=== PATIENT | male | born 1940 | race Caucasian/White ===

== ENCOUNTER 2017-04-10 21:21 | Emergency (ER) | payer MEDICARE ==
[~2017-04-10] VITALS: Ht 182.9 cm; Wt 112.5 kg
[~2017-04-10 21:21] MED LIST: ASPI81TA82 PO; COUM5TAB PO; COUM7.5T PO; EZET10 PO; FURO1TAB93 PO; HYDR-2768 PO; POTA-267 PO; PRIL40CA PO; ROSU10 PO; TOPR50TA PO
[2017-04-10 21:28] VITALS: BP 150/85; PULSE 100; RESP 16; TEMP 97.9; O2SAT 96
[2017-04-10] MEDS ORDERED: COUM7.5T PO (21:59)
[2017-04-10] MEDS ORDERED: FURO1TAB60 PO (21:59)
[2017-04-10] MEDS ORDERED: HYDR50TA3 PO (21:59)
[2017-04-10] MEDS ORDERED: PRIL20TA2 (21:59)
[2017-04-10] MEDS ORDERED: ASPI81CH CHEW (21:59)
[2017-04-10] MEDS ORDERED: COUM5TAB PO (21:59)
[2017-04-10] MEDS ORDERED: ZETI10TA5 PO (21:59)
[2017-04-10] MEDS ORDERED: POTA-243 PO (21:59)
[2017-04-10] MEDS ORDERED: TOPR25TA PO (21:59)
[2017-04-10] MEDS ORDERED: BACT800T5 PO (22:13)
[2017-04-10] MEDS ORDERED: CEPH-460 PO (22:13)
[2017-04-10] MEDS ORDERED: PRED50 PO (22:13)
--- NOTE | 2017-04-10 22:13 | PD ---
HPI Chief Complaint: Skin Problem Time Seen by Provider: 21:47 Travel History International Travel<30 days: No Contact w/Intl Traveler<30days: No Traveled to known affect area: No History of Present Illness HPI The patient is a 76-year-old male that noticed left elbow swelling 2 days ago. His left elbow is slightly painful. Today he noticed some redness on the medial aspect of his arm. He denies any fever. The patient is on Coumadin because of a mechanical heart valve. PFSH Past Medical History Hx Anticoagulant Therapy: Yes Arthritis: Yes (BACK) Asthma: No Blood Disorders: No Anxiety: No Depression: No Heart Rhythm Problems: Yes (2/ MURMUR ) Cancer: No Cardiac Catheterization: No Cardiovascular Problems: Yes (VALVE) High Cholesterol: Yes Chemotherapy: No Chest Pain: Yes Congestive Heart Failure: No COPD: No Coronary Artery Disease: Yes Diabetes: No Diminished Hearing: No Endocrine: No Gastrointestinal Disorders: Yes GERD: Yes Genitourinary: Yes (FREQ URINATION) Hypertension: Yes Immune Disorder: No Implanted Vascular Access Dvce: Yes Kidney Stones: Yes (YEARS AGO, STENT PLACED, "BLASTED STONE") Musculoskeletal: Yes (STEEL BETTE RIGHT LEG,) Neurologic: No Psychiatric: No Reproductive: No Respiratory: No Immunizations Current: Yes Myocardial Infarction: No Radiation Therapy: No Sleep Apnea: Yes Thyroid Disease: No Ulcer: Yes (ON "ACID REFLUX" PILL) ?: Not Past Surgical History Body Medical Devices: VALVE MECHANICAL HEART AORTIC VALVE. STEEL BETTE RIGHT LEG Cardiac Surgery: Yes Coronary Artery Bypass Graft: No Valve Replacement: Yes (AORTA 2001) Other Surgery: Yes (AORTIC VALVE 2001, RIGHT LEG STEEL BETTE) Family History Family Myocardial Infarction: No Social History Alcohol Use: No Tobacco Use: No Substance Use: No Allergies-Medications (Allergen,Severity, Reaction): Coded Allergies: No Known Allergies (Verified , MRI CONVERSION, 04/10/17) Reported Meds & Prescriptions Reported Meds & Active Scripts Active Reported Klor-Con 10 (Potassium Chloride) 10 Meq Tab 20 Meq PO BID Aspir-81 (Aspirin) 81 Mg Tab 81 Mg PO DAILY Lasix (Furosemide) 40 Mg Tab 40 Mg PO DAILY Coumadin 5 mg (Warfarin Sodium) Warfarin Sodium 5 mg Tab 5 Mg PO DIRECTED THURSDAY, THU, , SAT, SUN Coumadin 7.5 mg (Warfarin Sodium) Warfarin Sodium 7.5 mg Tab 7.5 Mg PO DIRECTED THURSDAY AND THURSDAY Zetia (Ezetimibe) 10 Mg Tab 10 Mg PO DAILY Hctz (Hydrochlorothiazide) 25 Mg Tab 50 Mg PO DAILY Prilosec 40 mg cap (Omeprazole) 40 Mg Cap 40 Mg PO BID NEB Toprol Xl (Metoprolol Succinate) 50 Mg Tabcr 25 Mg PO BID Crestor (Rosuvastatin Calcium) 10 Mg Tab 40 Mg PO DAILY Review of Systems Except as stated in HPI: all other systems reviewed are Neg Physical Exam Narrative GENERAL: Well-nourished, well-developed patient in slight apparent distress with his left elbow discomfort. SKIN: Focused skin assessment warm/dry. On the medial aspect of the upper arm and forearm is a 20 x 6 cm erythematous area. It is not tender to the touch. It is minimally warm. HEAD: Normocephalic. EYES: No scleral icterus. No injection or drainage. NECK: Supple, trachea midline. No JVD or lymphadenopathy. CARDIOVASCULAR: Regular rate and rhythm without murmurs, gallops, or rubs. RESPIRATORY: Breath sounds equal bilaterally. No accessory muscle use. GASTROINTESTINAL: Abdomen soft, non-tender, nondistended. MUSCULOSKELETAL: No cyanosis, or edema. There is an olecranon bursitis which is only minimally tender to the touch and the patient can flex and extend the elbow without significant pain. BACK: Nontender without obvious deformity. No CVA tenderness. Data Data Last Documented VS Vital Signs Date Time Temp Pulse Resp B/P Pulse Ox O2 Delivery O2 Flow Rate FiO2 04/10/17 21:28 97.9 100 16 150/85 96 MDM Medical Decision Making Medical Screen Exam Complete: Yes Emergency Medical Condition: Yes Medical Record Reviewed: Yes Differential Diagnosis Olecranon bursitisinfected, olecranon bursitisnot infected, cellulitis left arm, contact dermatitis left arm, allergic reaction left arm Narrative Course The redness on the left arm on the skin may be a cellulitis. It is a very early cellulitis and is nontender. The patient does not have any evidence of this time that the olecranon bursitis is infected. He is told that if it gets infected able increase in swelling and pain. He is told to return to emergency department should this happen. Diagnosis Primary Impression: Olecranon bursitis of left elbow Additional Impression: Cellulitis of left arm Additional Instructions: As we discussed, the prednisone is one tablet once daily for 4 days followed by one tablet daily for 4 days. The antibiotic is one tablet twice daily for 10 days and the other antibiotic is one tablet 3 times daily for 10 days. Follow- up next week with your primary care physician. Med/Other Pt SpecificInfo: Prescription(s) given Scripts Prednisone 50 Mg Tab50 Mg PO BID PRN (X 4 days than daily X 4 days) #12 TAB Ref 0 Prov:Deniz Del Toro MD 04/10/17 Cephalexin (Keflex)500 Mg [id number] Mg PO TID 10 Days Ref 0 Prov:Deniz Del Toro MD 04/10/17 Sulfamethoxazole-Trimethoprim (Bactrim DS)800-160 Mg Tab1 Tab PO BID #20 TAB Ref 0 Prov:Deniz Del Toro MD 04/10/17 Disposition: 01 DISCHARGE HOME Condition: Stable Deniz Del Toro MD Apr 10, 2017 22:13
[2017-04-10] MEDS ORDERED: CEPHALEXIN MONOHYDRATE 500 MG CAP PO ONE (22:15)
[2017-04-10] MEDS ORDERED: predniSONE 20 MG TAB PO ONE (22:15)
[2017-04-10] MEDS ORDERED: SULFAMETHOXAZOLE-TRIMETHOPRIM DS 800-160 MG TAB PO ONE (22:15)
== END 2017-04-10 22:38 | disposition home or self-care (01) ==
LOC: PHED 21:21
DX: M70.22 Olecranon bursitis, left elbow (principal); L03.114 Cellulitis of left upper limb; I10 Essential (primary) hypertension; E78.00 Pure hypercholesterolemia, unspecified; G47.30 Sleep apnea, unspecified; Z95.2 Presence of prosthetic heart valve; Z79.01 Long term (current) use of anticoagulants; Z87.39 Personal history of other diseases of the musculoskeletal system and connective tissue; Z86.79 Personal history of other diseases of the circulatory system; Z87.19 Personal history of other diseases of the digestive system; Z87.448 Personal history of other diseases of urinary system
CPT/HCPCS: 99284; J7512

== ENCOUNTER 2017-04-18 03:03 | Emergency (ER) | payer MEDICARE ==
[~2017-04-18] VITALS: Ht 180.3 cm; Wt 114.0 kg
[~2017-04-18 03:03] MED LIST changes: +ASPI81CH CHEW; -ASPI81TA82 PO; +BACT800T5 PO; +CEPH-460 PO; -EZET10 PO; +FURO1TAB60 PO; -FURO1TAB93 PO; -HYDR-2768 PO; +HYDR50TA3 PO; +POTA-243 PO; -POTA-267 PO; +PRED50 PO; +PRIL20TA2; -PRIL40CA PO; -ROSU10 PO; +TOPR25TA PO; -TOPR50TA PO; +ZETI10TA5 PO
[2017-04-18 03:09] VITALS: BP 160/81; PULSE 64; RESP 16; TEMP 98.3; O2SAT 96
[2017-04-18] MEDS ORDERED: SODIUM CHLOR 0.9% 1000 ML INJ 1,000 ML IV SCH (03:21)
[2017-04-18 03:24] VITALS: BP 174/86; PULSE 68; RESP 18; TEMP 98.3; O2SAT 96
[2017-04-18 03:27] VITALS: RESP 18; O2SAT 96
[2017-04-18] MEDS ORDERED: SODIUM CHLORIDE 0.9% FLUSH 10 ML FLUSH IVF PRN (03:30)
[2017-04-18] MEDS ORDERED: PANTOPRAZOLE SODIUM 40 MG VIAL IVP ONE (03:30)
[2017-04-18] MEDS ORDERED: FAMOTIDINE 20 MG/2 ML VIAL IV PUSH ONE (03:30)
[2017-04-18 03:34] LABS: AUTOMATED NEUTROPHIL # 11.5 TH/MM3 (1.8-7.7); BASOPHIL # 0.3 TH/MM3 (0-0.2); BASOPHIL % 1.7 % (0.0-2.0); EOSINOPHIL # 0.2 TH/MM3 (0-0.4); EOSINOPHIL % 1.1 % (0.0-4.0); HEMATOCRIT 41.7 % (39.0-51.0); LYMPH % 25.2 % (9.0-44.0); LYMPHOCYTE # 4.7 TH/MM3 (1.0-4.8); MEAN CELL VOLUME 91.6 FL (80.0-100.0); MEAN CORPUSCULAR HEMOGLOBIN 30.7 PG (27.0-34.0); MEAN CORPUSCULAR HGB CONC 33.5 % (32.0-36.0); MONO % 10.9 % (0.0-8.0); NEUT % 61.1 % (16.0-70.0); PLATELET COUNT 400 TH/MM3 (150-450); RED BLOOD COUNT 4.56 MIL/MM3 (4.50-5.90); RED CELL DISTRIBUTION WIDTH 12.9 % (11.6-17.2); WHITE BLOOD COUNT 18.8 TH/MM3 (4.0-11.0)
[2017-04-18 03:35] LABS: HEMO FLAGS DIFF FINAL
[2017-04-18 03:41] LABS: CHLORIDE 105 MEQ/L (98-107); POTASSIUM 4.3 MEQ/L (3.5-5.1); SODIUM (NA) 141 MEQ/L (136-145)
--- NOTE | 2017-04-18 03:41 | PD ---
HPI Chief Complaint: GI Complaint Time Seen by Provider: 03:21 Travel History International Travel<30 days: No Contact w/Intl Traveler<30days: No Traveled to known affect area: No History of Present Illness HPI The patient is a 76-year-old male who complains of rectal bleeding intermittently for the last 2 days. The bleeding is bright red. He is on Coumadin because he has a mechanical valve. He came in for olecranon bursitis on the of last month and was treated with prednisone, Keflex and Bactrim. He also had a cellulitis of the left arm. Olecranon bursitis is no longer painful but he is [facility] last [facility]. Yesterday, his INR was 3. He was told to begin his Coumadin again today and he took his Coumadin today. He was off Coumadin for 4 days prior to that. PFSH Past Medical History Hx Anticoagulant Therapy: Yes Arthritis: Yes (BACK) Asthma: No Blood Disorders: No Anxiety: No Depression: No Heart Rhythm Problems: Yes (2/6 MURMUR ) Cancer: No Cardiac Catheterization: No Cardiovascular Problems: Yes (VALVE) High Cholesterol: Yes Chemotherapy: No Chest Pain: Yes Congestive Heart Failure: No COPD: No Coronary Artery Disease: Yes Diabetes: No Diminished Hearing: No Endocrine: No Gastrointestinal Disorders: Yes GERD: Yes Genitourinary: Yes (FREQ URINATION) Hypertension: Yes Immune Disorder: No Implanted Vascular Access Dvce: Yes Kidney Stones: Yes (YEARS AGO, STENT PLACED, "BLASTED STONE") Musculoskeletal: Yes (STEEL BETTE RIGHT LEG,) Neurologic: No Psychiatric: No Reproductive: No Respiratory: No Immunizations Current: Yes Myocardial Infarction: No Radiation Therapy: No Sleep Apnea: Yes Thyroid Disease: No Ulcer: Yes (ON "ACID REFLUX" PILL) Tetanus Vaccination: Unknown Influenza Vaccination: Yes Past Surgical History Body Medical Devices: VALVE MECHANICAL HEART AORTIC VALVE. STEEL BETTE RIGHT LEG Cardiac Surgery: Yes Coronary Artery Bypass Graft: No Valve Replacement: Yes (AORTA 2001) Other Surgery: Yes (AORTIC VALVE 2001, RIGHT LEG STEEL BETTE) Family History Family Myocardial Infarction: No Social History Alcohol Use: No Tobacco Use: No Substance Use: No Allergies-Medications (Allergen,Severity, Reaction): Coded Allergies: No Known Allergies (Verified , MRI CONVERSION, 04/18/17) Reported Meds & Prescriptions Reported Meds & Active Scripts Active Prednisone 50 Mg Tab 50 Mg PO BID PRN Keflex (Cephalexin) 500 Mg Capsule 500 Mg PO TID 10 Days Bactrim DS (Sulfamethoxazole-Trimethoprim) 800-160 Mg Tab 1 Tab PO BID Reported Klor-Con 10 (Potassium Chloride) 10 Meq Tab 10 Meq PO DAILY Prilosec (Omeprazole Magnesium) 20 Mg Tab Toprol XL (Metoprolol Succinate) 25 Mg Tab 25 Mg PO DAILY Hydrochlorothiazide 50 Mg Tab 50 Mg PO DAILY Lasix (Furosemide) 40 Mg Tab 40 Mg PO DAILY Zetia (Ezetimibe) 10 Mg Tab 10 Mg PO DAILY Aspirin 81 Mg Chew 81 Mg CHEW DAILY Review of Systems Except as stated in HPI: all other systems reviewed are Neg Physical Exam Narrative GENERAL: The patient is alert, oriented 3 in no apparent distress. His vital signs show blood pressure 160/81 and the rest the vital signs are normal. He does not appear anemic. SKIN: Focused skin assessment warm/dry. HEAD: Atraumatic. Normocephalic. EYES: Pupils equal and round. No scleral icterus. No injection or drainage. ENT: No nasal bleeding or discharge. Mucous membranes pink and moist. NECK: Trachea midline. No JVD. CARDIOVASCULAR: Regular rate and rhythm. No murmur appreciated. RESPIRATORY: No accessory muscle use. Clear to auscultation. Breath sounds equal bilaterally. GASTROINTESTINAL: Abdomen soft, non-tender, nondistended. Hepatic and splenic margins not palpable. MUSCULOSKELETAL: No obvious deformities. No clubbing. No cyanosis. No edema. NEUROLOGICAL: Awake and alert. No obvious cranial nerve deficits. Motor grossly within normal limits. Normal speech. PSYCHIATRIC: Appropriate mood and affect; insight and judgment normal. RECTAL EXAM: No masses or tenderness, stool is brown but guaiac positive. No external hemorrhoids are noted. Data Data Last Documented VS Vital Signs Date Time Temp Pulse Resp B/P Pulse Ox O2 Delivery O2 Flow Rate FiO2 04/18/17 03:27 18 96 Room Air 04/18/17 03:24 98.3 68 174/86 Orders Complete Blood Count With Diff (04/18/17 03:21) Comprehensive Metabolic Panel (04/18/17 03:21) Lipase (04/18/17 03:21) Prothrombin Time / Inr (Pt) (04/18/17 03:21) Urinalysis - C+S If Indicated (04/18/17 03:21) Ecg Monitoring (04/18/17 03:21) Iv Access Insert/Monitor (04/18/17 03:21) Oximetry (04/18/17 03:21) Pantoprazole Inj (Protonix Inj) (04/18/17 03:30) Sodium Chlor 0.9% 1000 Ml Inj (Ns 1000 M (04/18/17 03:21) Sodium Chloride 0.9% Flush (Ns Flush) (04/18/17 03:30) Famotidine Inj (Pepcid Inj) (04/18/17 03:30) Labs Laboratory Tests Test 04/18/17 03:25 White Blood Count 18.8 TH/MM3 Red Blood Count 4.56 MIL/MM3 Hemoglobin 14.0 GM/DL Hematocrit 41.7 % Mean Corpuscular Volume 91.6 FL Mean Corpuscular Hemoglobin 30.7 PG Mean Corpuscular Hemoglobin 33.5 % Concent Red Cell Distribution Width 12.9 % Platelet Count 400 TH/MM3 Mean Platelet Volume 7.8 FL Neutrophils (%) (Auto) 61.1 % Lymphocytes (%) (Auto) 25.2 % Monocytes (%) (Auto) 10.9 % Eosinophils (%) (Auto) 1.1 % Basophils (%) (Auto) 1.7 % Neutrophils # (Auto) 11.5 TH/MM3 Lymphocytes # (Auto) 4.7 TH/MM3 Monocytes # (Auto) 2.1 TH/MM3 Eosinophils # (Auto) 0.2 TH/MM3 Basophils # (Auto) 0.3 TH/MM3 CBC Comment DIFF FINAL Differential Comment Prothrombin Time 27.1 SEC Prothromb Time International 2.4 RATIO Ratio Sodium Level 141 MEQ/L Potassium Level 4.3 MEQ/L Chloride Level 105 MEQ/L Carbon Dioxide Level 27.5 MEQ/L Anion Gap 9 MEQ/L Blood Urea Nitrogen 26 MG/DL Creatinine 1.40 MG/DL Estimat Glomerular Filtration 50 ML/MIN Rate Random Glucose 89 MG/DL Calcium Level 8.8 MG/DL Total Bilirubin 0.3 MG/DL Aspartate Amino Transf 70 U/L (AST/SGOT) Alanine Aminotransferase 185 U/L (ALT/SGPT) Alkaline Phosphatase 87 U/L Total Protein 6.6 GM/DL Albumin 3.1 GM/DL Lipase 249 U/L [facility] Medical Decision Making Medical Screen Exam Complete: Yes Emergency Medical Condition: Yes Medical Record Reviewed: Yes Interpretation(s) The CBC shows a white count of 18,800 with a platelet count of 400,000 but is otherwise unremarkable. The hemoglobin is 14.0. The complete metabolic profile shows a BUN of 26, creatinine 1.4, GFR of 50, AST of 70 and ALT of 185 and albumin of 3.1 but is otherwise normal. The lipase is normal. The ProTime is 27.1 and the INR is 2.4. Differential Diagnosis Coumadin coagulopathy, lower GI bleed, anemia, thrombocytopenia, electrolyte disorder Narrative Course The patient is about at his desirable INR level at this time. Because he is still experiencing symptoms some minor rectal bleeding we will have him discontinue the Coumadin today and resume the Coumadin on Thursday. [facility] He feels fine and does not want to be admitted in the hospital and we can find no reason for him to be in the hospital at this time. His rectal bleeding appears to be minor. Diagnosis Primary Impression: Rectal bleeding Ruled Out: Anemia Additional Instructions: As we discussed, do not take the Coumadin on Thursday and [facility]. We are always happy to recheck you should you have an increase of rectal bleeding. At this time it appears you're rectal bleeding was minimal. The stool is already brown. Med/Other Pt SpecificInfo: Existing Med Changed Disposition: DISCHARGE HOME Condition: Stable Deniz Del Toro MD Apr 18, 2017 03:41
[2017-04-18 03:44] LABS: ANION GAP 9 MEQ/L (5-15); BICARBONATE 27.5 MEQ/L (21.0-32.0); INTERNATIONAL NORMALIZED RATIO 2.4 RATIO; PROTHROMBIN TIME - PATIENT 27.1 SEC (9.8-11.6)
[2017-04-18 03:45] LABS: BLOOD UREA NITROGEN 26 MG/DL (7-18)
[2017-04-18 03:47] LABS: ALT (GPT) 185 U/L (12-78); AST (GOT) 70 U/L (15-37)
[2017-04-18 03:48] LABS: GLOMERULAR FILTRATION RATE 50 ML/MIN (>89)
[2017-04-18 03:49] LABS: TOTAL BILIRUBIN ADULT 0.3 MG/DL (0.2-1.0)
[2017-04-18 03:50] LABS: ALKALINE PHOSPHATASE 87 U/L (45-117)
[2017-04-18 04:25] LABS: BLOOD, URINE NEG (NEG); GLUCOSE,URINE NEG (NEG); KETONE, URINE NEG (NEG); NITRITE,URINE NEG (NEG); PH, URINE 5.5 (5.0-8.5)
[2017-04-18 04:30] LABS: COMMENT (UR) CULT NOT INDICATED; CULTURE IF INDICATED CULT NOT INDICATED; RBC, URINE 0-2 /hpf (0-3); SQUAMOUS EPITHELIAL CELL URINE 0-5 /hpf (0-5); URINE COLOR STRAW (YELLW/STRAW); WBC, URINE 0-2 /hpf (0-5)
== END 2017-04-18 04:40 | disposition home or self-care (01) ==
LOC: PHED 03:03
DX: K62.5 Hemorrhage of anus and rectum (principal); Z95.2 Presence of prosthetic heart valve; Z79.01 Long term (current) use of anticoagulants; E78.00 Pure hypercholesterolemia, unspecified; I25.10 Atherosclerotic heart disease of native coronary artery without angina pectoris; I10 Essential (primary) hypertension; G47.30 Sleep apnea, unspecified; K21.9 Gastro-esophageal reflux disease without esophagitis
CPT/HCPCS: 80053; 81001; 83690; 85025; 85610; 96361; 96374; 96375; 99284; C9113; J7030

== ENCOUNTER 2017-04-19 16:34 | Emergency (ER) | payer MEDICARE ==
[~2017-04-19] VITALS: Ht 182.9 cm; Wt 113.0 kg
[~2017-04-19 16:34] MED LIST changes: -COUM5TAB PO; -COUM7.5T PO
[2017-04-19 16:36] VITALS: BP 194/87; PULSE 92; RESP 24; TEMP 98.8; O2SAT 93
--- NOTE | 2017-04-19 17:23 | PD ---
HPI Chief Complaint: Pain: Acute or Chronic Time Seen by Provider: 17:22 Travel History International Travel<30 days: No Contact w/Intl Traveler<30days: No Traveled to known affect area: No History of Present Illness HPI 76-year-old male came to the emergency room with history of left elbow olecranon bursitis. Patient has had this since April 10. In fact patient had got to [facility] emergency room where he was diagnosed with it and started on Bactrim. He did not have a needle aspiration done probably because he is on Coumadin. Patient says that due to the Bactrim his INR went up almost to 6. His primary care made some Coumadin dose adjustment and his last INR as of yesterday was 3. However he still has the swelling on the elbow and the redness and hence is back here again. He says he's been taking the Bactrim like is supposed and still has a few days left finish the course. Denies any fever or chills. Vital signs in triage showed slight hypoxia and hypertension. Patient does not appear to be in any significant distress. Looking back at his medical record patient had elevated white blood cell count on the . [facility] Past Medical History Narrative Medical List of his past medical, surgical, social and family history is reviewed from the nursing note. Hx Anticoagulant Therapy: Yes (COUMADIN) Arthritis: Yes (BACK) Asthma: No Blood Disorders: No Anxiety: No Depression: No Heart Rhythm Problems: Yes (2/6 MURMUR ) Cancer: No Cardiac Catheterization: No Cardiovascular Problems: Yes (NM 1994, ARTIFICAL VALVE) High Cholesterol: Yes Chemotherapy: No Chest Pain: Yes Congestive Heart Failure: No COPD: No Coronary Artery Disease: Yes Diabetes: No Diminished Hearing: No Endocrine: No Gastrointestinal Disorders: Yes GERD: Yes Genitourinary: Yes (FREQ URINATION) Hypertension: Yes Immune Disorder: No Implanted Vascular Access Dvce: Yes Kidney Stones: Yes (YEARS AGO, STENT PLACED, "BLASTED STONE") Musculoskeletal: Yes (STEEL BETTE RIGHT LEG,) Neurologic: No Psychiatric: No Reproductive: No Respiratory: No Immunizations Current: Yes Myocardial Infarction: No Radiation Therapy: No Sleep Apnea: Yes Thyroid Disease: No Ulcer: Yes (ON "ACID REFLUX" PILL) Past Surgical History Body Medical Devices: VALVE MECHANICAL HEART AORTIC VALVE. STEEL BETTE RIGHT LEG Cardiac Surgery: Yes Coronary Artery Bypass Graft: No Valve Replacement: Yes (AORTA 2001) Other Surgery: Yes (AORTIC VALVE 2001, RIGHT LEG STEEL BETTE) Social History Alcohol Use: No Tobacco Use: No Substance Use: No Allergies-Medications (Allergen,Severity, Reaction): Coded Allergies: No Known Allergies (Verified , MRI CONVERSION, 04/19/17) Comments List of his allergies reviewed from the nursing note. Reported Meds & Prescriptions Reported Meds & Active Scripts Active Prednisone 50 Mg Tab 50 Mg PO BID PRN Keflex (Cephalexin) 500 Mg Capsule 500 Mg PO TID 10 Days Bactrim DS (Sulfamethoxazole-Trimethoprim) 800-160 Mg Tab 1 Tab PO BID Reported Klor-Con 10 (Potassium Chloride) 10 Meq Tab 10 Meq PO DAILY Prilosec (Omeprazole Magnesium) 20 Mg Tab Toprol XL (Metoprolol Succinate) 25 Mg Tab 25 Mg PO DAILY Hydrochlorothiazide 50 Mg Tab 50 Mg PO DAILY Lasix (Furosemide) 40 Mg Tab 40 Mg PO DAILY Zetia (Ezetimibe) 10 Mg Tab 10 Mg PO DAILY Aspirin 81 Mg Chew 81 Mg CHEW DAILY Narrative Medication List of his home medications reviewed from the nursing note. Review of Systems Except as stated in HPI: all other systems reviewed are Neg Physical Exam Narrative GENERAL: Awake, alert, elderly, no obvious distress SKIN: Focused skin assessment warm/dry. Left elbow over the olecranon process has swelling, erythema of the skin and fluctuance suggestive of olecranon bursitis. HEAD: Atraumatic. Normocephalic. EYES: Pupils equal and round. No scleral icterus. No injection or drainage. ENT: No nasal bleeding or discharge. Mucous membranes pink and moist. NECK: Trachea midline. No JVD. CARDIOVASCULAR: Regular rate and rhythm. No murmur appreciated. RESPIRATORY: No accessory muscle use. Clear to auscultation. Breath sounds equal bilaterally. GASTROINTESTINAL: Abdomen soft, non-tender, nondistended. Hepatic and splenic margins not palpable. MUSCULOSKELETAL: No obvious deformities. No clubbing. No cyanosis. No edema. NEUROLOGICAL: Awake and alert. No obvious cranial nerve deficits. Motor grossly within normal limits. Normal speech. PSYCHIATRIC: Appropriate mood and affect; insight and judgment normal. Data Data Last Documented VS Vital Signs Date Time Temp Pulse Resp B/P Pulse Ox O2 Delivery O2 Flow Rate FiO2 04/19/17 17:59 93 Nasal Cannula 2 04/19/17 17:58 85 18 140/69 04/19/17 16:36 98.8 Orders Complete Blood Count With Diff (04/19/17 17:32) Comprehensive Metabolic Panel (04/19/17 17:32) Prothrombin Time / Inr (Pt) (04/19/17 17:32) Lactic Acid Sepsis Protocol (04/19/17 17:32) Urinalysis - C+S If Indicated (04/19/17 17:32) Blood Culture (04/19/17 17:32) Blood Glucose (04/19/17 17:32) Ecg Monitoring (04/19/17 17:32) Iv Access Insert/Monitor (04/19/17 17:32) Oximetry (04/19/17 17:32) Oxygen Administration (04/19/17 17:32) Vancomycin Inj (Vancomycin Inj) (04/19/17 18:45) Piperacil-Tazo 4.5 Gm Premix (Zosyn 4.5 (04/19/17 18:45) Labs Laboratory Tests Test 04/19/17 04/19/17 04/19/17 17:40 17:50 17:51 Urine Color LIGHT-YELLOW Urine Turbidity CLEAR Urine pH 5.5 Urine Specific [place] 1.011 Urine Protein NEG mg/dL Urine Glucose (UA) NEG mg/dL Urine Ketones NEG mg/dL Urine Occult Blood NEG Urine Nitrite NEG Urine Bilirubin NEG Urine Urobilinogen LESS THAN 2.0 MG/DL Urine Leukocyte Esterase NEG Urine RBC LESS THAN 1 /hpf Urine WBC 1 /hpf Microscopic Urinalysis Comment CATH-CULT NOT IND White Blood Count 19.6 TH/MM3 Red Blood Count 4.61 MIL/MM3 Hemoglobin 13.8 GM/DL Hematocrit 42.5 % Mean Corpuscular Volume 92.3 FL Mean Corpuscular Hemoglobin 29.9 PG Mean Corpuscular Hemoglobin 32.4 % Concent Red Cell Distribution Width 13.7 % Platelet Count 332 TH/MM3 Mean Platelet Volume 7.9 FL Neutrophils (%) (Auto) 77.9 % Lymphocytes (%) (Auto) 11.4 % Monocytes (%) (Auto) 8.9 % Eosinophils (%) (Auto) 1.3 % Basophils (%) (Auto) 0.5 % Neutrophils # (Auto) 15.2 TH/MM3 Lymphocytes # (Auto) 2.2 TH/MM3 Monocytes # (Auto) 1.7 TH/MM3 Eosinophils # (Auto) 0.3 TH/MM3 Basophils # (Auto) 0.1 TH/MM3 CBC Comment AUTO DIFF Differential Total Cells Counted Differential Comment AUTO DIFF CONFIRMED Platelet Estimate NORMAL Platelet Morphology Comment NORMAL Prothrombin Time 33.0 SEC Prothromb Time International 2.9 RATIO Ratio Sodium Level 137 MEQ/L Potassium Level 4.7 MEQ/L Chloride Level 100 MEQ/L Carbon Dioxide Level 28.9 MEQ/L Anion Gap 8 MEQ/L Blood Urea Nitrogen 24 MG/DL Creatinine 1.06 MG/DL Estimat Glomerular Filtration 68 ML/MIN Rate Random Glucose 105 MG/DL Calcium Level 9.2 MG/DL Total Bilirubin 0.4 MG/DL Aspartate Amino Transf 31 U/L (AST/SGOT) Alanine Aminotransferase 121 U/L (ALT/SGPT) Alkaline Phosphatase 86 U/L Total Protein 6.8 GM/DL Albumin 3.2 GM/DL Lactic Acid Level 1.5 mmol/L [facility] Medical Decision Making Medical Screen Exam Complete: Yes Emergency Medical Condition: Yes Medical Record Reviewed: Yes Differential Diagnosis Olecranon bursitis, cellulitis Narrative Course 5:50 PM I've ordered blood test. If the white blood cell count is back to normal and would just let the patient finish the course of the Bactrim. He is on Coumadin and the INR is a concern as well. A needle aspiration would be done if the INR is within an acceptable range and white count is still elevated. 6:45 PM his white count today is 20,000 and the INR is 2.9. Given this patient obviously has failed outpatient treatment. [place] would be to aspirate the bursa and send the fluid for culture. However he would require admission because there is a very high likelihood of hemorrhage and bleeding once I have aspirated given his high INR. Also because of his failure of outpatient treatment he should be admitted for IV antibiotic. I ordered IV vancomycin and IV Zosyn for broad-spectrum coverage and went to talk to the patient to let him know about all this as well as admission. However patient vehemently refused admission because he has a sick at home whom he needs to take care of. He understood the risks of leaving. Patient was in full capacity to make decisions for himself. He will sign AMA. Procedures EKG Prior to Arrival: No Diagnosis Primary Impression: infected olecranon bursitis Additional Impressions: Failure of outpatient treatment Olecranon bursitis of left elbow Disposition: 07 AGAINST MEDICAL ADVICE Condition: Serious Sharon Rogers MD Apr 19, 2017 17:23
[2017-04-19 17:58] VITALS: BP 140/69; PULSE 85; RESP 18; O2SAT 93
[2017-04-19 18:13] LABS: AUTOMATED NEUTROPHIL # 15.2 TH/MM3 (1.8-7.7); BASOPHIL # 0.1 TH/MM3 (0-0.2); BASOPHIL % 0.5 % (0.0-2.0); EOSINOPHIL # 0.3 TH/MM3 (0-0.4); EOSINOPHIL % 1.3 % (0.0-4.0); HEMATOCRIT 42.5 % (39.0-51.0); LYMPH % 11.4 % (9.0-44.0); LYMPHOCYTE # 2.2 TH/MM3 (1.0-4.8); MEAN CELL VOLUME 92.3 FL (80.0-100.0); MEAN CORPUSCULAR HEMOGLOBIN 29.9 PG (27.0-34.0); MEAN CORPUSCULAR HGB CONC 32.4 % (32.0-36.0); MONO % 8.9 % (0.0-8.0); NEUT % 77.9 % (16.0-70.0); PLATELET COUNT 332 TH/MM3 (150-450); RED BLOOD COUNT 4.61 MIL/MM3 (4.50-5.90); RED CELL DISTRIBUTION WIDTH 13.7 % (11.6-17.2); WHITE BLOOD COUNT 19.6 TH/MM3 (4.0-11.0)
[2017-04-19 18:18] LABS: HEMO FLAGS AUTO DIFF
[2017-04-19 18:20] LABS: INTERNATIONAL NORMALIZED RATIO 2.9 RATIO
[2017-04-19 18:33] LABS: ALKALINE PHOSPHATASE 86 U/L (45-117); TOTAL BILIRUBIN ADULT 0.4 MG/DL (0.2-1.0)
[2017-04-19 18:42] LABS: ALT (GPT) 121 U/L (12-78); ANION GAP 8 MEQ/L (5-15); AST (GOT) 31 U/L (15-37); BICARBONATE 28.9 MEQ/L (21.0-32.0); BLOOD UREA NITROGEN 24 MG/DL (7-18); CHLORIDE 100 MEQ/L (98-107); GLOMERULAR FILTRATION RATE 68 ML/MIN (>89); POTASSIUM 4.7 MEQ/L (3.5-5.1); SODIUM (NA) 137 MEQ/L (136-145)
[2017-04-19] MEDS ORDERED: PIPERACIL-TAZO 4.5 GM PREMIX 100 ML IV ONE (18:45)
[2017-04-19] MEDS ORDERED: VANCOMYCIN INJ 1,000 MG in SODIUM CHLOR 0.9% 250 ML INJ 250 ML IV ONE (18:45)
[2017-04-19 18:46] LABS: BLOOD, URINE NEG (NEG); GLUCOSE,URINE NEG (NEG); KETONE, URINE NEG (NEG); NITRITE,URINE NEG (NEG); PH, URINE 5.5 (5.0-8.5); URINE COLOR LIGHT-YELLOW (YELLW/STRAW)
[2017-04-19 18:47] LABS: COMMENT (UR) CATH-CULT NOT IND; CULTURE IF INDICATED CATH CULTURE NOT IND
[2017-04-19 19:14] LABS: PLATELET ESTIMATE SMEAR NORMAL (NORMAL); PLATELET MORPHOLOGY NORMAL (NORMAL); SCAN/DIFF AUTO DIFF CONFIRMED
== END 2017-04-19 21:42 | disposition left against medical advice (07) ==
LOC: NEPD 16:34
DX: M71.122 Other infective bursitis, left elbow (principal); I10 Essential (primary) hypertension; I25.10 Atherosclerotic heart disease of native coronary artery without angina pectoris; Z79.01 Long term (current) use of anticoagulants
CPT/HCPCS: 80053; 81001; 83605; 85025; 85610; 87040; 99283

== ENCOUNTER 2017-04-19 20:17 | Inpatient (IN) | payer MEDICARE ==
[~2017-04-19] VITALS: Ht 182.9 cm; Wt 107.1 kg
[~2017-04-19 20:17] MED LIST changes: +COUM5TAB PO; +COUM7.5T PO
[2017-04-19 20:20] VITALS: BP 159/70; PULSE 86; RESP 16; TEMP 99.3; O2SAT 93
--- NOTE | 2017-04-19 20:58 | PD ---
Physical Exam Date Seen by Provider: Apr 19, 2017 Time Seen by Provider: 20:57 Data Data Last Documented VS Vital Signs Date Time Temp Pulse Resp B/P Pulse Ox O2 Delivery O2 Flow Rate FiO2 04/19/17 20:20 99.3 86 16 159/70 93 Room Air [facility] Supervised Visit with MONA: No Narrative Course 76 YO M with complaint of left elbow pain x 1 week. Patient was seen earlier then left AMA. On Coumadin. Vitals reviewed. Patient seen in triage, awaiting bed placement. Adela Bernstein Apr 19, 2017 20:58
--- NOTE | 2017-04-19 21:40 | PD ---
HPI Chief Complaint: Edema Time Seen by Provider: 21:40 Travel History International Travel<30 days: No Contact w/Intl Traveler<30days: No Traveled to known affect area: No History of Present Illness HPI 76-year-old male with history of CAD, hypertension, aVR in 2001, on Coumadin, presents to emergency department for the second time today. Earlier today the patient was seen and evaluated for an olecranon bursitis on the left that has been worsening since April 10 when he was initially seen and evaluated in [place] emergency department and started on Bactrim. Patient has been taking the Bactrim but redness has increased as well as pain. Patient denies any fever or chills. States that he is taking the Bactrim as directed. Today his white count was 19.6 with a neutrophilia of 15.2. CMP was without acute concern. Lactic acid was 1.5. Patient was advised to be admitted for failure of outpatient treatment, however the patient had to check himself out AGAINST MEDICAL ADVICE to go For his sick . He returns to continue with the initial treatment plan. There have been no changes since his leaving earlier today. PFSH Past Medical History Hx Anticoagulant Therapy: Yes Arthritis: Yes (BACK) Asthma: No Blood Disorders: No Anxiety: No Depression: No Heart Rhythm Problems: Yes (2/6 MURMUR ) Cancer: No Cardiac Catheterization: No Cardiovascular Problems: Yes (HTN, MECHANICAL HEART VALVE, [place]) High Cholesterol: Yes Chemotherapy: No Chest Pain: Yes Congestive Heart Failure: No COPD: No Coronary Artery Disease: Yes Diabetes: No Diminished Hearing: No Endocrine: No Gastrointestinal Disorders: Yes GERD: Yes Genitourinary: Yes (FREQ URINATION) Hypertension: Yes Immune Disorder: No Implanted Vascular Access Dvce: Yes Kidney Stones: Yes (YEARS AGO, STENT PLACED, "BLASTED STONE") Musculoskeletal: Yes (STEEL BETTE RIGHT LEG,) Neurologic: No Psychiatric: No Reproductive: No Respiratory: No Immunizations Current: Yes Myocardial Infarction: No Radiation Therapy: No Sleep Apnea: Yes Thyroid Disease: No Ulcer: Yes (ON "ACID REFLUX" PILL) Past Surgical History Body Medical Devices: VALVE MECHANICAL HEART AORTIC VALVE. STEEL BETTE RIGHT LEG Cardiac Surgery: Yes Coronary Artery Bypass Graft: No Valve Replacement: Yes (AORTA 2001) Other Surgery: Yes (AORTIC VALVE 2001, RIGHT LEG STEEL BETTE) Social History Alcohol Use: No Tobacco Use: No Substance Use: No Allergies-Medications (Allergen,Severity, Reaction): Coded Allergies: No Known Allergies (Verified , MRI CONVERSION, 04/19/17) Reported Meds & Prescriptions Reported Meds & Active Scripts Active Prednisone 50 Mg Tab 50 Mg PO BID PRN Keflex (Cephalexin) 500 Mg Capsule 500 Mg PO TID 10 Days Bactrim DS (Sulfamethoxazole-Trimethoprim) 800-160 Mg Tab 1 Tab PO BID Reported Klor-Con 10 (Potassium Chloride) 10 Meq Tab 10 Meq PO DAILY Prilosec (Omeprazole Magnesium) 20 Mg Tab Toprol XL (Metoprolol Succinate) 25 Mg Tab 25 Mg PO DAILY Hydrochlorothiazide 50 Mg Tab 50 Mg PO DAILY Lasix (Furosemide) 40 Mg Tab 40 Mg PO DAILY Zetia (Ezetimibe) 10 Mg Tab 10 Mg PO DAILY Aspirin 81 Mg Chew 81 Mg CHEW DAILY Review of Systems Except as stated in HPI: all other systems reviewed are Neg Physical Exam Narrative GENERAL: Well-nourished elderly male patient, sitting up on the stretcher in no acute distress. SKIN: Focused skin assessment warm/dry. Left elbow over the olecranon process has swelling, erythema of the skin and fluctuance suggestive of olecranon bursitis. Erythema extends now approximately to the medial aspect of the mid bicep.. HEAD: Atraumatic. Normocephalic. EYES: No scleral icterus. No injection or drainage. ENT: No nasal bleeding or discharge. Mucous membranes pink and moist. NECK: Trachea midline. No JVD. CARDIOVASCULAR: Regular rate and rhythm. 2/6 murmur appreciated. RESPIRATORY: No accessory muscle use. Clear to auscultation. Breath sounds equal bilaterally. GASTROINTESTINAL: Abdomen soft, non-tender, nondistended. Hepatic and splenic margins not palpable. MUSCULOSKELETAL: No obvious deformities. No clubbing. No cyanosis. NEUROLOGICAL: Awake and alert. No obvious cranial nerve deficits. Motor grossly within normal limits. Normal speech. PSYCHIATRIC: Appropriate mood and affect; insight and judgment normal. Data Data Last Documented VS Vital Signs Date Time Temp Pulse Resp B/P Pulse Ox O2 Delivery O2 Flow Rate FiO2 04/19/17 21:53 66 18 120/59 93 Room Air 04/19/17 20:20 99.3 Orders Iv Access Insert/Monitor (04/19/17 22:07) Electrocardiogram (04/19/17 ) Elbow, Complete (4 Vws) (04/19/17 ) [facility] Medical Decision Making Medical Screen Exam Complete: Yes Emergency Medical Condition: Yes Medical Record Reviewed: Yes Differential Diagnosis Infected olecranon bursitis versus septic joint versus cellulitis Narrative Course 76-year-old male presents to emergency department for evaluation of a left olecranon bursitis that is worsening despite treatment of Bactrim. Patient was seen and evaluated today, checked himself out AGAINST MEDICAL ADVICE to go care for his . He returns for admission and IV antibiotics. Patient has remained afebrile. He recalls no new injury. X-ray imaging is ordered of the left elbow has not yet been completed. Colchicine placed [place] hospitalist for admission. Diagnosis Primary Impression: Cellulitis of left arm Additional Impressions: Olecranon bursitis of left elbow Failure of outpatient treatment Admitting Information Admitting Physician Requests: Admit Condition: Stable Ivette Soriano Apr 19, 2017 21:40
[2017-04-19 21:53] VITALS: BP 120/59; PULSE 66; RESP 18; O2SAT 93
--- NOTE | 2017-04-19 22:28 | RADRPT ---
EXAM DATE/TIME: 04/19/2017 22:16 [facility] COMPARISON: No previous studies available for comparison. INDICATIONS : Inflammation and pain on posterior surface. MEDICAL HISTORY : None. SURGICAL HISTORY : None. ENCOUNTER: Initial ACUITY: 1 week PAIN SCORE: 2/10 LOCATION: Left posterior elbow. FINDINGS: Multiple view examination of the left elbow demonstrates no soft tissue swelling, joint effusion, or fracture. The osseous structures are in normal alignment. Bony mineralization is normal. There is rounded soft tissue swelling at the posterior elbow adjacent to the olecranon. CONCLUSION: Olecranon bursitis. Diego Palacios MD on April 19, 2017 at 22:25 Board Certified Radiologist. This report was verified electronically.
[2017-04-19] MEDS ORDERED: BISACODYL 10 MG SUPP RECTAL PRN (22:30)
[2017-04-19] MEDS ORDERED: MAGNESIUM HYDROXIDE SUSP 30 ML CUP PO PRN (22:30)
[2017-04-19] MEDS ORDERED: SODIUM CHLORIDE 0.9% FLUSH 10 ML FLUSH IV FLUSH PRN (22:30)
[2017-04-19] MEDS ORDERED: ACETAMINOPHEN/HYDROcodone 325 MG/5 MG TAB PO PRN (22:30)
[2017-04-19] MEDS ORDERED: ACETAMINOPHEN 325 MG TAB PO PRN (22:30)
[2017-04-19] MEDS ORDERED: ONDANSETRON HCL 4 MG/2 ML VIAL IVP PRN (22:30)
[2017-04-19] MEDS ORDERED: SENNOSIDES 8.6 MG TAB PO PRN (22:30)
[2017-04-19] MEDS ORDERED: LACTULOSE SYRUP 20 GM/30 ML CUP PO PRN (22:30)
[2017-04-19] MEDS ORDERED: Vancomycin Consult Pharmacy 1 EA OTHER SCH (22:30)
[2017-04-19] MEDS ORDERED: MORPHINE SULFATE 4 MG/ML INJ IV PRN (22:30)
--- NOTE | 2017-04-19 22:36 | HHI.HP ---
HPI Service [facility] Hospitalists Primary Care Physician [facility] Admission Diagnosis Infected L olecranon bursitis; cellulitis; failed outpt tx Diagnoses: (1) Olecranon bursitis of left elbow Diagnosis: Principal (2) Failure of outpatient treatment Diagnosis: Principal (3) Chronic anticoagulation Diagnosis: Principal Travel History International Travel<30 Days: No Contact w/Intl Traveler <30 Da: No Traveled to Known Affected Are: No History of Present Illness This is a 76-year-old male with a PMH of HTN, CAD, Mechanical AVR on Coumadin and GERD who presented to the ER for 2nd visit today secondary to complaints of left elbow swelling/pain. Initially presented to [facility] 04/10/17 for similar complaints, noted to have Olecranon Bursitis w/ Cellulitis and d/c'd on Keflex/Bactrim/Prednisone, reports compliance w/ meds. Presented to [facility] earlier today for ongoing complaints, found to have left elbow cellulitis w/ WBC 19, s/p Vanc/Zosyn in ER at that time and was offered admission, however pt declined as he had to go home to take care of sick . Returns now for admission as he found someone to care for . On arrival, BP 159/70, HR 86, O2 sat 93% on RA, Temp 99.3. WBC 19.6, elevated neutrophil count. Chemistry unremarkable except for GFR 68. Lactic Acid normal. INR 2.9. UA negative. Elbow X-ray with olecranon bursitis. Review of Systems Except as stated in HPI: all other systems reviewed are Neg ROS: 14 point review of systems otherwise negative. Past Family Social History Past Medical History PMH: HTN, CAD, Mechanical AVR on Coumadin and GERD Past Surgical History PAST SURGICAL HISTORY: Mechanical Aortic Valve, RLE Brought Allergies: Coded Allergies: No Known Allergies (Verified , MRI CONVERSION, 04/19/17) Family History PAST FAMILY HISTORY: Reviewed. No h/o DM or CAD Social History PAST SOCIAL HISTORY: Negative for alcohol, tobacco or drugs. Physical Exam Vital Signs Vital Signs Date Time Temp Pulse Resp B/P Pulse Ox O2 Delivery O2 Flow Rate FiO2 04/19/17 21:53 66 18 120/59 93 Room Air 04/19/17 20:20 99.3 86 16 159/70 93 Room Air Physical Exam PE: GENERAL: Very pleasant elderly white male in no acute distress. HEENT: PERRLA, EOMI. No scleral icterus or conjunctival pallor. No lid lag or facial droop. CARDIOVASCULAR: Regular rate and rhythm. No obvious murmurs to auscultation. No chest tenderness to palpation. RESPIRATORY: No obvious rhonchi or wheezing. Clear to auscultation. Breath sounds equal bilaterally. GASTROINTESTINAL: Abdomen soft, non-tender, nondistended. BS normal. MUSCULOSKELETAL: Extremities without clubbing, cyanosis, or edema. No obvious deformities. Left elbow w/ erythema/edema. Pulses intact. NEUROLOGICAL: Awake, alert and oriented x4. No focal neurologic deficits. Moving both upper and lower extremities spontaneously. Assessment and Plan Problem List: (1) Olecranon bursitis of left elbow ICD Code: M70.22 Status: Acute (2) Failure of outpatient treatment ICD Code: Z78.9 Status: Acute (3) Chronic anticoagulation ICD Code: Z79.01 Status: Acute Assessment and Plan A/P: 1. Olecranon Bursitis: Left Elbow, w/ associated cellulitis, persistent erythema/edema despite antibiotics. Elbow X-ray w/ olecranon bursitis, images reviewed by me. Continue w/ IV Abx, hold Coumadin for possible joint aspiration. Consult Ortho as needed for further evaluation. 2. Failure of Outpt Tx: s/p eval [facility] 04/10/17, started on Keflex/ Bactrim, compliant w/ medications however progressive symptoms. S/p Vanc/Zosyn on earlier presentation to ER, will continue w/ IV Abx. 3. Chronic Anticoagulation: secondary to Mechanical Aortic Valve, on Coumadin , INR 2.9. Will hold for now for possible need for joint aspiration, caution w / prolonged discontinuation of anticoagulation as high risk for embolic event w / mechanical valve. 4. DVT Prophylaxis: On Coumadin. 5. Social work for d/c planning as needed. 6. Case discussed w/ ER physician at length. Physician Certification 2 Midnight Certification Type: Admission for Inpatient Services Order for Inpatient Services The services are ordered in accordance with Medicare regulations or non- Medicare payer requirements, as applicable. In the case of services not specified as inpatient-only, they are appropriately provided as inpatient services in accordance with the 2-midnight benchmark. Estimated LOS (days): 2 days is the estimated time the patient will need to remain in the hospital, assuming treatment plan goals are met and no additional complications. Post-Hospital Plan: Not yet determined Nicci Slaughter MD Apr 19, 2017 22:36
[2017-04-19] MEDS: SODIUM CHLOR 0.9% 1000 ML INJ 1,000 ML IV SCH (23:00)
[2017-04-19] MEDS ORDERED: VANCOMYCIN INJ 2,500 MG in SODIUM CHLORID 0.9% 500 ML INJ 500 ML IV ONE (23:00)
[2017-04-20] VITALS (7 sets, daily range): BP systolic 100–157; BP diastolic 55–76; PULSE 68–94; RESP 16–20; TEMP 97.7–98.7; O2SAT 90–98
[2017-04-20 06:53] LABS: AUTOMATED NEUTROPHIL # 12.5 TH/MM3 (1.8-7.7); BASOPHIL # 0.1 TH/MM3 (0-0.2); BASOPHIL % 0.3 % (0.0-2.0); EOSINOPHIL # 0.2 TH/MM3 (0-0.4); EOSINOPHIL % 1.5 % (0.0-4.0); HEMATOCRIT 39.4 % (39.0-51.0); LYMPH % 11.1 % (9.0-44.0); LYMPHOCYTE # 1.8 TH/MM3 (1.0-4.8); MEAN CELL VOLUME 91.8 FL (80.0-100.0); MEAN CORPUSCULAR HEMOGLOBIN 30.5 PG (27.0-34.0); MEAN CORPUSCULAR HGB CONC 33.3 % (32.0-36.0); MONO % 8.4 % (0.0-8.0); NEUT % 78.7 % (16.0-70.0); PLATELET COUNT 301 TH/MM3 (150-450); RED CELL DISTRIBUTION WIDTH 13.5 % (11.6-17.2); WHITE BLOOD COUNT 15.9 TH/MM3 (4.0-11.0)
[2017-04-20 06:58] LABS: INTERNATIONAL NORMALIZED RATIO 2.1 RATIO; PROTHROMBIN TIME - PATIENT 24.1 SEC (9.8-11.6)
[2017-04-20 07:05] LABS: HEMO FLAGS AUTO DIFF
[2017-04-20 07:48] LABS: ANION GAP 7 MEQ/L (5-15); AST (GOT) 22 U/L (15-37); BLOOD UREA NITROGEN 18 MG/DL (7-18); CHLORIDE 99 MEQ/L (98-107); GLOMERULAR FILTRATION RATE 71 ML/MIN (>89); SODIUM (NA) 135 MEQ/L (136-145)
[2017-04-20 07:49] LABS: ALT (GPT) 92 U/L (12-78)
[2017-04-20 07:51] LABS: ALKALINE PHOSPHATASE 75 U/L (45-117); TOTAL BILIRUBIN ADULT 0.6 MG/DL (0.2-1.0)
[2017-04-20 08:24] LABS: BANDS 4 % (0-6); MYELOCYTES 1 % (0-0); NEUTROPHIL # MANUAL DIFF 13.4 TH/MM3 (1.8-7.7); POLYS (SEG NEUTROPHILS) 79 % (16-70); WBC DIFF SAMPLE 100
[2017-04-20 08:25] LABS: SCAN/DIFF FINAL DIFF MANUAL
[2017-04-20] MEDS: EZETIMIBE 10 MG TAB PO SCH (08:34)
[2017-04-20] MEDS: FUROSEMIDE 40 MG TAB PO SCH (08:34)
[2017-04-20] MEDS: HYDROCHLOROTHIAZIDE 50 MG TAB PO SCH (08:34)
[2017-04-20] MEDS: METOPROLOL SUCCINATE 25 MG EXTENDED RELEASE TAB PO SCH (08:34)
[2017-04-20] MEDS: SODIUM CHLORIDE 0.9% FLUSH 10 ML FLUSH IV FLUSH SCH ×2 (08:35→21:00)
[2017-04-20] MEDS: CEFEPIME INJ 2,000 MG in SODIUM CHLORIDE 0.9% INJ 100 ML IV SCH ×2 (08:35→21:01)
[2017-04-20] MEDS: DOCUSATE SODIUM 50 MG/SENNA 8.6 MG TAB PO SCH ×2 (08:42→21:00)
[2017-04-20] MEDS: SODIUM CHLOR 0.9% 1000 ML INJ 1,000 ML IV SCH ×2 (08:44→21:10)
[2017-04-20] MEDS: VANCOMYCIN 1,500 MG/NS 500 ML IV SCH ×2 (12:29)
--- NOTE | 2017-04-20 13:32 | HHI.PR ---
Subjective Remarks Patient reports is feeling okay. He has not noticed any change in the swelling or erythema. He denies fevers or chills. Objective Vitals Vital Signs Date Time Temp Pulse Resp B/P Pulse Ox O2 Delivery O2 Flow Rate FiO2 04/20/17 12:00 97.7 93 20 157/71 92 04/20/17 08:00 Room Air 04/20/17 08:00 98.3 85 20 132/65 93 04/20/17 04:00 97.9 73 16 149/69 92 04/20/17 04:00 Room Air 04/20/17 00:58 Room Air 04/20/17 00:05 97.7 68 16 139/76 95 04/19/17 21:53 66 18 120/59 93 Room Air 04/19/17 20:20 99.3 86 16 159/70 93 Room Air I/O 04/19/17 04/19/17 04/19/17 04/20/17 04/20/17 04/20/17 07:00 15:00 23:00 07:00 15:00 23:00 Intake Total 933 ml Output Total 900 ml Balance 33 ml Intake Oral 180 ml IV Total 753 ml Output Urine Total 900 ml # Bowel Movements 0 Result Diagram: 04/20/17 0611 04/20/17 0611 Imaging Last Impressions Elbow X-Ray 04/19/17 0000 Signed Impressions: Service Date/Time: Wednesday, April 19, 2017 22:16 - CONCLUSION: Olecranon bursitis. Diego Palacios MD Objective Remarks GENERAL: This is a well-nourished, well-developed patient, in no apparent distress. CARDIOVASCULAR: Normal rate and regular rhythm without murmurs, gallops, or rubs. RESPIRATORY: Good respiratory efforts. Breath sounds equal and clear to auscultation bilaterally. GASTROINTESTINAL: Abdomen soft, non-tender, non-distended. Normal active bowel sounds MUSCULOSKELETAL: Left elbow has extensive swelling about the olecranon. There is extending erythema above and below the elbow joint. NEURO: Alert & Oriented x4 to person, place, time, situation. Moves all ext x4 PSYCH: Appropriate mood and affect. A/P Problem List: (1) Olecranon bursitis of left elbow ICD Code: M70.22 Status: Acute (2) Failure of outpatient treatment ICD Code: Z78.9 Status: Acute (3) Chronic anticoagulation ICD Code: Z79.01 Status: Acute Assessment and Plan 76-year-old male with Olecranon Bursitis: Left Elbow, w/ associated cellulitis, persistent erythema/ edema despite outpatient antibiotics. Elbow X-ray did not reveal any trauma. Continue vancomycin and cefepime. Consult orthopedics for possible aspiration. Pain control Chronic Anticoagulation: secondary to Mechanical Aortic Valve, on Coumadin, INR 2.1. Will hold for now for possible need for joint aspiration, caution w/ prolonged discontinuation of anticoagulation as high risk for embolic event w/ mechanical valve. Hypertension: Continue home medications DVT Prophylaxis: On Coumadin. Aung Harmon MD Apr 20, 2017 13:32
[2017-04-21] MEDS: VANCOMYCIN 1,500 MG/NS 500 ML IV SCH ×2 (00:37)
[2017-04-21] MEDS: SODIUM CHLOR 0.9% 1000 ML INJ 1,000 ML IV SCH (04:33)
[2017-04-21 05:07] VITALS: BP 140/76; PULSE 92; RESP 18; TEMP 98.3; O2SAT 91
[2017-04-21 06:14] LABS: HEMATOCRIT 42.1 % (39.0-51.0); MEAN CELL VOLUME 92.9 FL (80.0-100.0); MEAN CORPUSCULAR HEMOGLOBIN 29.9 PG (27.0-34.0); MEAN CORPUSCULAR HGB CONC 32.2 % (32.0-36.0); PLATELET COUNT 258 TH/MM3 (150-450); RED BLOOD COUNT 4.54 MIL/MM3 (4.50-5.90); RED CELL DISTRIBUTION WIDTH 13.7 % (11.6-17.2); REVIEW FLAG FINAL; WHITE BLOOD COUNT 16.4 TH/MM3 (4.0-11.0)
[2017-04-21 06:27] LABS: BICARBONATE 26.3 MEQ/L (21.0-32.0); POTASSIUM 3.9 MEQ/L (3.5-5.1)
[2017-04-21 08:02] VITALS: BP 133/72; PULSE 102; RESP 20; TEMP 98.9; O2SAT 93
[2017-04-21] MEDS: DOCUSATE SODIUM 50 MG/SENNA 8.6 MG TAB PO SCH (09:00)
[2017-04-21] MEDS: SODIUM CHLORIDE 0.9% FLUSH 10 ML FLUSH IV FLUSH SCH (09:00)
[2017-04-21] MEDS: CEFEPIME INJ 2,000 MG in SODIUM CHLORIDE 0.9% INJ 100 ML IV SCH (09:01)
[2017-04-21] MEDS: EZETIMIBE 10 MG TAB PO SCH (09:02)
[2017-04-21] MEDS: HYDROCHLOROTHIAZIDE 50 MG TAB PO SCH (09:02)
[2017-04-21] MEDS: FUROSEMIDE 40 MG TAB PO SCH (09:02)
[2017-04-21] MEDS: METOPROLOL SUCCINATE 25 MG EXTENDED RELEASE TAB PO SCH (09:02)
[2017-04-21] MEDS ORDERED: PHARMACY ORDERED LAB ONE (11:45)
[2017-04-21] MEDS ORDERED: LEVO500T8 PO (11:59)
--- NOTE | 2017-04-21 12:00 | HHI.DS ---
Discharge Summary Admission Date Apr 19, 2017 at 22:17 Discharge Date: Apr 21, 2017 Admitting Diagnosis Infected L olecranon bursitis; cellulitis; failed outpt tx (1) Olecranon bursitis of left elbow ICD Code: M70.22 (2) Failure of outpatient treatment ICD Code: Z78.9 (3) Chronic anticoagulation ICD Code: Z79.01 Procedures None Brief History - From Admission History of present illness from the admitting physician This is a 76-year-old male with a PMH of HTN, CAD, Mechanical AVR on Coumadin and GERD who presented to the ER for 2nd visit today secondary to complaints of left elbow swelling/pain. Initially presented to [facility] ER 04/10/17 for similar complaints, noted to have Olecranon Bursitis w/ Cellulitis and d/c'd on Keflex/Bactrim/Prednisone, reports compliance w/ meds. Presented to [facility] earlier today for ongoing complaints, found to have left elbow cellulitis w/ WBC 19, s/p Vanc/Zosyn in ER at that time and was offered admission, however pt declined as he had to go home to take care of sick . Returns now for admission as he found someone to care for . On arrival, BP 159/70, HR 86, O2 sat 93% on RA, Temp 99.3. WBC 19.6, elevated neutrophil count. Chemistry unremarkable except for GFR 68. Lactic Acid normal. INR 2.9. UA negative. Elbow X-ray with olecranon bursitis. CBC/BMP: 04/21/17 0450 04/21/17 0450 Significant Findings Laboratory Tests Test 04/20/17 04/21/17 06:11 04:50 White Blood Count 15.9 TH/MM3 16.4 TH/MM3 (4.0-11.0) (4.0-11.0) Red Blood Count 4.30 MIL/MM3 (4.50-5.90) Neutrophils (%) (Auto) 78.7 % (16.0-70.0) Monocytes (%) (Auto) 8.4 % (0.0-8.0) Neutrophils # (Auto) 12.5 TH/MM3 (1.8-7.7) Monocytes # (Auto) 1.3 TH/MM3 (0-0.9) Neutrophils % (Manual) 79 % (16-70) Lymphocytes % 7 % (9-44) Monocytes % 9 % (0-8) Neutrophils # (Manual) 13.4 TH/MM3 (1.8-7.7) Myelocytes 1 % (0-0) Prothrombin Time 24.1 SEC (9.8-11.6) Sodium Level 135 MEQ/L 135 MEQ/L (136-145) (136-145) Estimat Glomerular Filtration 71 ML/MIN (>89) 79 ML/MIN (>89) Rate Random Glucose 110 MG/DL 108 MG/DL (74-106) (74-106) Alanine Aminotransferase 92 U/L (12-78) (ALT/SGPT) Total Protein 6.1 GM/DL (6.4-8.2) Albumin 2.9 GM/DL (3.4-5.0) Imaging Last Impressions Elbow X-Ray 04/19/17 0000 Signed Impressions: Service Date/Time: Wednesday, April 19, 2017 22:16 - CONCLUSION: Olecranon bursitis. Diego Palacios MD PE at Discharge GENERAL: This is a well-nourished, well-developed patient, in no apparent distress. CARDIOVASCULAR: Normal rate and regular rhythm without murmurs, gallops, or rubs. RESPIRATORY: Good respiratory efforts. Breath sounds equal and clear to auscultation bilaterally. GASTROINTESTINAL: Abdomen soft, non-tender, non-distended. Normal active bowel sounds MUSCULOSKELETAL: Left elbow has extensive swelling about the olecranon. There is extending erythema above and below the elbow joint. NEURO: Alert & Oriented x4 to person, place, time, situation. Moves all ext x4 PSYCH: Appropriate mood and affect. Pt update on day of discharge Patient reports he is feeling much better. He has no pain on the elbow, moving it freely. No fevers or chills. He is requesting to go home and states he will follow up outpatient with orthopedics. He is refusing to stay for orthopedic consultation. Hospital Course 76-year-old male admitted with electron bursitis of the left elbow with associated cellulitis. He failed outpatient treatment with Keflex and Bactrim. Patient was admitted and treated vancomycin and cefepime. His symptoms significantly improved and he requested to be discharged. Patient deemed stable enough for discharge home and to follow-up outpatient with orthopedics. He is discharged on Levaquin for an additional 7 days. Orthopedics referral ordered. Other conditions treated include: Chronic Anticoagulation: secondary to Mechanical Aortic Valve, on Coumadin, INR 2.1 on admission. Coumadin was held. Patient advised to resume Coumadin. Hypertension: Continue home medications Pt Condition on Discharge: Good Discharge Disposition: Discharge Home Discharge Time: <= 30 minutes Discharge Instructions DIET: Follow Instructions for: As Tolerated, No Restrictions Activities you can perform: Regular-No Restrictions Follow up Referrals: Orthopedics - 1 Week with Ankush Fernandez MD New Medications: Levofloxacin (Levofloxacin) 500 Mg Tablet 500 MG PO DAILY Infection #7 Ref 0 TAB Continued Medications: Aspirin (Aspirin) 81 Mg Chew 81 MG CHEW DAILY Ref 0 TAB Ezetimibe (Zetia) 10 Mg Tab 10 MG PO DAILY #30 Ref 0 TAB Furosemide (Lasix) 40 Mg Tab 40 MG PO DAILY #30 Ref 0 TAB Hydrochlorothiazide (Hydrochlorothiazide) 50 Mg Tab 50 MG PO DAILY #60 Ref 0 TAB Metoprolol Succinate ER 24 HR (Toprol XL) 25 Mg Tab 25 MG PO DAILY #30 Ref 0 TAB Omeprazole Magnesium (Prilosec) 20 Mg Tab Potassium Chloride ER (Klor-Con 10) 10 Meq Tab 10 MEQ PO DAILY Electrolyte Replacement #30 Ref 0 TAB Discontinued Medications: Cephalexin (Keflex) 500 Mg Capsule 500 MG PO TID Infection Days 10 Ref 0 CAP Prednisone (Prednisone) 50 Mg Tab 50 MG PO BID PRN X 4 days than daily X 4 days #12 Ref 0 TAB Sulfamethoxazole-Trimethoprim (Bactrim DS) 800-160 Mg Tab 1 TAB PO BID Infection #20 Ref 0 TAB Aung Harmon MD Apr 21, 2017 12:00
--- NOTE | 2017-04-21 12:00 | HHI.DCPOC ---
Discharge Care Plan Diagnosis: (1) Olecranon bursitis of left elbow (2) Failure of outpatient treatment (3) Chronic anticoagulation (4) Cellulitis of left arm Goals to Promote Your Health * To prevent worsening of your condition and complications * To maintain your health at the optimal level Directions to Meet Your Goals Take your medications as prescribed Follow your dietary instruction Follow activity as directed Keep your appointments as scheduled Take your immunizations and boosters as scheduled If your symptoms worsen call your PCP, if no PCP go to Urgent Care Center or Emergency Room Smoking is Dangerous to Your Health. Avoid second hand smoke Call the 24-hour hour crisis hotline for domestic abuse at Aung Harmon MD Apr 21, 2017 12:00
== END 2017-04-21 12:54 | disposition home or self-care (01) | DRG 558 ==
LOC: NEPC 20:17 → NEDA 22:17 → N04B 23:58 → UNDODISIN 04-21 12:15
PROVIDERS: ADMIT Family Medicine; ATTEND Family Medicine
DX: M71.122 Other infective bursitis, left elbow (principal); L03.114 Cellulitis of left upper limb; I10 Essential (primary) hypertension; I25.10 Atherosclerotic heart disease of native coronary artery without angina pectoris; Z95.4 Presence of other heart-valve replacement; Z79.01 Long term (current) use of anticoagulants; K21.9 Gastro-esophageal reflux disease without esophagitis
CPT/HCPCS: 73080; 80048; 80053; 85007; 85027; 85610; J0692; J3370; J7030; J7040

== ENCOUNTER 2018-03-05 09:31 | Inpatient (IN) | payer OTHER, MEDICARE ==
[~2018-03-05] VITALS: Ht 180.3 cm; Wt 110.0 kg
[~2018-03-05 09:31] MED LIST changes: +ASPI-516 CHEW; -ASPI81CH CHEW; -BACT800T5 PO; -CEPH-460 PO; -COUM5TAB PO; -COUM7.5T PO; +EZET10 PO; +KLOR10TA PO; +LEVO500T8 PO; -POTA-243 PO; -PRED50 PO; -ZETI10TA5 PO
[2018-03-05 10:04] VITALS: BP 153/73; PULSE 58; RESP 18; TEMP 98.5; O2SAT 98
[2018-03-05 10:54] LABS: AUTOMATED NEUTROPHIL # 6.4 TH/MM3 (1.8-7.7); BASOPHIL # 0.1 TH/MM3 (0-0.2); BASOPHIL % 0.6 % (0.0-2.0); EOSINOPHIL # 0.2 TH/MM3 (0-0.4); EOSINOPHIL % 2.5 % (0.0-4.0); HEMATOCRIT 40.2 % (39.0-51.0); HEMOGLOBIN 13.4 GM/DL (13.0-17.0); LYMPH % 17.4 % (9.0-44.0); LYMPHOCYTE # 1.6 TH/MM3 (1.0-4.8); MEAN CELL VOLUME 91.9 FL (80.0-100.0); MEAN CORPUSCULAR HEMOGLOBIN 30.7 PG (27.0-34.0); MEAN CORPUSCULAR HGB CONC 33.4 % (32.0-36.0); MEAN PLATELET VOLUME 8.9 FL (7.0-11.0); MONO % 9.8 % (0.0-8.0); MONOCYTE # 0.9 TH/MM3 (0-0.9); NEUT % 69.7 % (16.0-70.0); PLATELET COUNT 249 TH/MM3 (150-450); RED BLOOD COUNT 4.37 MIL/MM3 (4.50-5.90); RED CELL DISTRIBUTION WIDTH 13.5 % (11.6-17.2); WHITE BLOOD COUNT 9.2 TH/MM3 (4.0-11.0)
--- NOTE | 2018-03-05 10:56 | PD ---
HPI Chief Complaint: Injury Time Seen by Provider: 10:17 Travel History International Travel<30 days: No Contact w/Intl Traveler<30days: No Traveled to known affect area: No History of Present Illness HPI Patient presents to the emergency department complaining of left ankle pain. States he was carrying his dog and a cane and he tripped over the cane. He denies hitting his head, no LOC. Has an obvious left ankle deformity. States that he fell forward when he fell. He denies chest pain, shortness of breath, nausea, vomiting, but reports a chronic headache secondary to prior brain surgery states he was nonambulatory after the fall and has not required pain medication. Does not want pain medication in the ER. PFSH Past Medical History Hx Anticoagulant Therapy: Yes Arthritis: Yes (BACK) Asthma: No Blood Disorders: No Anxiety: No Depression: No Heart Rhythm Problems: Yes (2/6 MURMUR ) Cancer: No Cardiac Catheterization: No Cardiovascular Problems: Yes (HTN, MECHANICAL HEART VALVE, [place]) High Cholesterol: Yes Chemotherapy: No Chest Pain: Yes Congestive Heart Failure: No COPD: No Coronary Artery Disease: Yes Diabetes: No Diminished Hearing: No Endocrine: No Gastrointestinal Disorders: Yes GERD: Yes Genitourinary: Yes (FREQ URINATION) Hypertension: Yes Immune Disorder: No Implanted Vascular Access Dvce: Yes Kidney Stones: Yes (YEARS AGO, STENT PLACED, "BLASTED STONE") Musculoskeletal: Yes (STEEL BETTE RIGHT LEG,) Neurologic: No Psychiatric: No Reproductive: No Respiratory: No Immunizations Current: Yes Myocardial Infarction: No Radiation Therapy: No Sleep Apnea: Yes Thyroid Disease: No Ulcer: Yes (ON "ACID REFLUX" PILL) ?: Not Past Surgical History Body Medical Devices: VALVE MECHANICAL HEART AORTIC VALVE. STEEL BETTE RIGHT LEG Cardiac Surgery: Yes Coronary Artery Bypass Graft: No Valve Replacement: Yes (AORTA 2001) Other Surgery: Yes (AORTIC VALVE 2001, RIGHT LEG STEEL BETTE) Family History Family Myocardial Infarction: No Social History Alcohol Use: No Tobacco Use: No Substance Use: No Allergies-Medications (Allergen,Severity, Reaction): Coded Allergies: No Known Allergies (Verified , MRI CONVERSION, 04/19/17) Reported Meds & Prescriptions Reported Meds & Active Scripts Active Reported Klor-Con 10 (Potassium Chloride) 10 Meq Tab 10 Meq PO DAILY Prilosec (Omeprazole Magnesium) 20 Mg Tab Toprol XL (Metoprolol Succinate) 25 Mg Tab 25 Mg PO DAILY Hydrochlorothiazide 50 Mg Tab 50 Mg PO DAILY Lasix (Furosemide) 40 Mg Tab 40 Mg PO DAILY Zetia (Ezetimibe) 10 Mg Tab 10 Mg PO DAILY Aspirin 81 Mg Chew 81 Mg CHEW DAILY Review of Systems Except as stated in HPI: all other systems reviewed are Neg Physical Exam Narrative GENERAL: Resting comfortably in the stretcher in no acute distress SKIN: Focused skin assessment warm/dry. HEAD: Atraumatic. Normocephalic. EYES: Ocular muscles intact bilaterally. No scleral icterus. No injection or drainage. ENT: No nasal bleeding or discharge. Mucous membranes pink and moist. NECK: Trachea midline. No JVD. CARDIOVASCULAR: Regular rate and rhythm. No murmur appreciated. RESPIRATORY: No accessory muscle use. Clear to auscultation. Breath sounds equal bilaterally. GASTROINTESTINAL: Abdomen soft, non-tender, nondistended. Hepatic and splenic margins not palpable. MUSCULOSKELETAL: Obvious left ankle deformity. Sensation intact, cap refill less than 3 seconds, positive DP pulse NEUROLOGICAL: Awake and alert. No obvious cranial nerve deficits. Motor grossly within normal limits. Normal speech. PSYCHIATRIC: Appropriate mood and affect; insight and judgment normal. Data Data Last Documented VS Vital Signs Date Time Temp Pulse Resp B/P (MAP) Pulse Ox O2 Delivery O2 Flow Rate FiO2 03/05/18 14:09 98 Nasal Cannula 3.00 03/05/18 13:27 57 18 118/57 (77) 03/05/18 10:04 98.5 Orders Orders Complete Blood Count With Diff (03/05/18 10:27) Comprehensive Metabolic Panel (03/05/18 10:27) Prothrombin Time / Inr (Pt) (03/05/18 10:27) Act Partial Throm Time (Ptt) (03/05/18 10:27) Knee, Ltd (1 Or 2vws) (03/05/18 10:27) Tibia/Fibula (Ap/Lat) (03/05/18 10:27) Foot, Limited (2vws) (03/05/18 10:27) Ankle, Limited (Ap&Lat) (03/05/18 10:27) Chest, Single Ap (03/05/18 10:54) Ankle, Complete ([id number]) (03/05/18 11:56) Propofol 500 Mg/50 Ml Inj (Diprivan 500 (03/05/18 14:00) Ankle, Complete ([id number]) (03/05/18 14:06) Splint Post Long Leg Ad Alum (03/05/18 ) Fiberglass Short Leg Splint Ad (03/05/18 ) Fiberglass Sugartong Sp Ad Sl (03/05/18 ) Ice Cuff (03/05/18 ) Admit Order (Ed Use Only) (03/05/18 15:08) Labs Laboratory Tests Test 03/05/18 10:22 White Blood Count 9.2 TH/MM3 Red Blood Count 4.37 MIL/MM3 Hemoglobin 13.4 GM/DL Hematocrit 40.2 % Mean Corpuscular Volume 91.9 FL Mean Corpuscular Hemoglobin 30.7 PG Mean Corpuscular Hemoglobin Concent 33.4 % Red Cell Distribution Width 13.5 % Platelet Count 249 TH/MM3 Mean Platelet Volume 8.9 FL Neutrophils (%) (Auto) 69.7 % Lymphocytes (%) (Auto) 17.4 % Monocytes (%) (Auto) 9.8 % Eosinophils (%) (Auto) 2.5 % Basophils (%) (Auto) 0.6 % Neutrophils # (Auto) 6.4 TH/MM3 Lymphocytes # (Auto) 1.6 TH/MM3 Monocytes # (Auto) 0.9 TH/MM3 Eosinophils # (Auto) 0.2 TH/MM3 Basophils # (Auto) 0.1 TH/MM3 CBC Comment DIFF FINAL Differential Comment Prothrombin Time 20.0 SEC Prothromb Time International Ratio 2.0 RATIO Activated Partial Thromboplast Time 34.1 SEC Blood Urea Nitrogen 20 MG/DL Creatinine 1.08 MG/DL Random Glucose 116 MG/DL Total Protein 6.7 GM/DL Albumin 3.5 GM/DL Calcium Level 9.0 MG/DL Alkaline Phosphatase 73 U/L Aspartate Amino Transf (AST/SGOT) 25 U/L Alanine Aminotransferase (ALT/SGPT) 23 U/L Total Bilirubin 0.4 MG/DL Sodium Level 138 MEQ/L Potassium Level 5.0 MEQ/L Chloride Level 103 MEQ/L Carbon Dioxide Level 25.5 MEQ/L Anion Gap 10 MEQ/L Estimat Glomerular Filtration Rate 67 ML/MIN MDM Medical Decision Making Medical Screen Exam Complete: Yes Emergency Medical Condition: Yes Interpretation(s) Labs glucose and BUN slightly increased; INR is 2 (patient is on blood thinner) Last Impressions Chest X-Ray 03/05/18 1054 Signed Impressions: Service Date/Time: Monday, March 05, 2018 11:01 - CONCLUSION: No acute disease. Eriberto Ramon MD Tibia/Fibula X-Ray 03/05/18 1027 Signed Impressions: Service Date/Time: Monday, March 05, 2018 10:48 - CONCLUSION: Tibial and fibular fractures with soft tissue swelling and deformity at the ankle. Eriberto Ramon MD Knee X-Ray 03/05/18 1027 Signed Impressions: Service Date/Time: Monday, March 05, 2018 10:53 - CONCLUSION: Unremarkable limited examination of the left knee. Eriberto Ramon MD Foot X-Ray 03/05/18 102 Signed Impressions: Service Date/Time: Monday, March 05, 2018 10:56 - CONCLUSION: Fracture dislocation at the ankle. Eriberto Ramon MD Ankle X-Ray 03/05/181026 Signed Impressions: Service Date/Time: Monday, March 05, 2018 10:51 - CONCLUSION: Fracture dislocation at the ankle. Eriberto Ramon MD post reduction XR FINDINGS: Three view exam was performed of the left ankle. Trimalleolar fracture with disruption of the ankle mortise has been partially reduced with near anatomic alignment of the distal tibia and the talar dome. CONCLUSION: Partial reduction of the trimalleolar fracture-dislocation. 2nd post reduction XR: FINDINGS: Patient is status post reduction of left ankle fracture dislocation. A displaced fracture of the medial malleolus of the distal tibia, posterior malleolus, and distal fibula are again noted with improved alignment. Cast in place. CONCLUSION: Distal tibia and fibular fractures are noted with soft tissue swelling. Differential Diagnosis Ankle fracture, dislocation, Narrative Course Patient presents to the emergency department status post fall with obvious left ankle deformity. We will place IV, put on fire investigation lieutenant, and check labs and x -rays. Reduction was attempted in the emergency department without sedation as patient states he did not want any sedation or pain medication. After the reduction collision repair technician placed a splint and postreduction x-rays obtained. X-rays show that the ankle was partially reduced. Went back to the patient and asked if we could give him some sedation meds and try to better reduce the ankle. He agreed. He was given propofol approximately 80 mg IV, and placed on oxygen, ankle was reduced and sugar tong splint placed by collision repair technician. He has a dopplerable pulse which was audible by myself, the nurse, and [employer]. Cap refill is less than 3 seconds, sensation was intact, patient denies pain. Postreduction x-ray obtained which shows better alignment of ankle. Procedures Procedure Narrative Patient did not want pain medication or sedation meds. Reduction was attempted at bedside, sensation was intact and pulse was palpable after reduction attempt. Splint and x-rays check, post reduction x-ray pending. Initial post reduction x-ray showed that the ankle was partially reduced patient agreed to sedation and was given 80 mg propofol and reduction was attempted again. Postreduction x-rays check. Better alignment on second postreduction x-ray. He is neurovascularly intact. Physician Communication Physician Communication [id number]: Dr. Rm, ortho print controller paged: Reduce, splint, admit Diagnosis Primary Impression: Ankle fracture, left Qualified Codes: S82.892A - Other fracture of left lower leg, initial encounter for closed fracture Admitting Information Admitting Physician Requests: Admit Condition: Stable Angeles Carlson MD March 05, 2018 10:56
--- NOTE | 2018-03-05 11:08 | RADRPT ---
EXAM DATE/TIME: 03/05/2018 11:01 [facility] COMPARISON: CHEST SINGLE AP, November 19, 2015, 22:29. INDICATIONS : Patient fell today . MEDICAL HISTORY : Cardiovascular disease. Hypertension SURGICAL HISTORY : valve replacement ENCOUNTER: Initial ACUITY: 1 day PAIN SCORE: 7/10 LOCATION: upper chest FINDINGS: Cardiomegaly and sternotomy wires. Lungs are clear. Osseous structures are intact. CONCLUSION: No acute disease. Eriberto Ramon MD on March 05, 2018 at 11:06 Board Certified Radiologist. This report was verified electronically.
[2018-03-05 11:11] LABS: ALBUMIN 3.5 GM/DL (3.4-5.0); ALT (GPT) 23 U/L (12-78); AST (GOT) 25 U/L (15-37); BICARBONATE 25.5 MEQ/L (21.0-32.0); BLOOD UREA NITROGEN 20 MG/DL (7-18); CHLORIDE 103 MEQ/L (98-107); CREATININE 1.08 MG/DL (0.60-1.30); GLOMERULAR FILTRATION RATE 67 ML/MIN (>89); GLUCOSE,RANDOM 116 MG/DL (74-106); SODIUM (NA) 138 MEQ/L (136-145)
--- NOTE | 2018-03-05 11:11 | RADRPT ---
EXAM DATE/TIME: 03/05/2018 10:51 [facility] COMPARISON: TIBIA/FIBULA LEFT (AP/LAT), March 05, 2018, 10:48. INDICATIONS : Patient fell today and has obvious deformity left ankle. MEDICAL HISTORY : Cardiovascular disease. Hypertension SURGICAL HISTORY : valve replacement ENCOUNTER: Initial ACUITY: 1 day PAIN SCORE: 10/10 LOCATION: Left extremity FINDINGS: There are displaced fractures of the distal fibula as well as medial malleolus with interruption of t he ankle mortise. There is posterior dislocation of the talus with respect to the tibia and posterior displacement of the distal fibular and tibial fracture fragments. CONCLUSION: Fracture dislocation at the ankle. Eriberto Ramon MD on March 05, 2018 at 11:09 Board Certified Radiologist. This report was verified electronically.
[2018-03-05 11:14] LABS: ALKALINE PHOSPHATASE 73 U/L (45-117); TOTAL BILIRUBIN ADULT 0.4 MG/DL (0.2-1.0); TOTAL PROTEIN 6.7 GM/DL (6.4-8.2)
--- NOTE | 2018-03-05 11:16 | RADRPT ---
EXAM DATE/TIME: 03/05/2018 10:56 [facility] COMPARISON: ANKLE LEFT LIMITED (AP&LAT), March 05, 2018, 10:51. INDICATIONS : Patient fell and has obvious deformity of her left ankle. MEDICAL HISTORY : Hypertension. SURGICAL HISTORY : valve replacement ENCOUNTER: Initial ACUITY: 1 day PAIN SCORE: 10/10 LOCATION: Left ankle FINDINGS: Fracture dislocation of the ankle with posterior displacement of the talus with respect to the tibia, posteriorly displaced distal tibial fracture and oblique displaced distal fibular fracture is identi fied. Calcaneal spur. CONCLUSION: Fracture dislocation at the ankle. Eriberto Ramon MD on March 05, 2018 at 11:13 Board Certified Radiologist. This report was verified electronically.
--- NOTE | 2018-03-05 11:20 | RADRPT ---
EXAM DATE/TIME: 03/05/2018 10:48 [facility] COMPARISON: FOOT LEFT LIMITED (2VWS), March 05, 2018, 10:56. KNEE LEFT LTD (1 OR 2VWS), March 05, 2018, 10:53. ANKL E LEFT LIMITED (AP&LAT), March 05, 2018, 10:51. INDICATIONS : Patient fell today and has obvious deformity of left ankle. MEDICAL HISTORY : Hypertension. SURGICAL HISTORY : valve replacement ENCOUNTER: Initial ACUITY: 1 day PAIN SCORE: 10/10 LOCATION: Left ankle FINDINGS: The bone density is normal. There is a fracture dislocation at the ankle with distal fibular and tibi al fractures seen involving the medial malleolus and lateral malleolus. A posterior malleolus fractur e fragment is also seen. CONCLUSION: Tibial and fibular fractures with soft tissue swelling and deformity at the ankle. Eriberto Ramon MD on March 05, 2018 at 11:18 Board Certified Radiologist. This report was verified electronically.
--- NOTE | 2018-03-05 11:22 | RADRPT ---
EXAM DATE/TIME: 03/05/2018 10:53 [facility] COMPARISON: No previous studies available for comparison. INDICATIONS : Patient fell and has obvious deformity of left ankle. MEDICAL HISTORY : Hypertension. Cardiovascular disease. SURGICAL HISTORY : valve replacement ENCOUNTER: Initial ACUITY: 1 day PAIN SCORE: 10/10 LOCATION: Left ankle FINDINGS: Two view examination of the left knee demonstrates no evidence of fracture or dislocation. Bony mine ralization is normal. The suprapatellar soft tissues have a normal configuration. CONCLUSION: Unremarkable limited examination of the left knee. Eriberto Ramon MD on March 05, 2018 at 11:20 Board Certified Radiologist. This report was verified electronically.
[2018-03-05 12:09] VITALS: BP 119/60; PULSE 68; RESP 18; O2SAT 97
--- NOTE | 2018-03-05 12:44 | RADRPT ---
EXAM DATE/TIME: 03/05/2018 12:08 [facility] COMPARISON: ANKLE LEFT LIMITED (AP&LAT), March 05, 2018, 10:51. INDICATIONS : Post reduction left ankle. MEDICAL HISTORY : None. SURGICAL HISTORY : None. ENCOUNTER: Initial ACUITY: 1 day PAIN SCORE: 0/10 LOCATION: Left Ankle. FINDINGS: Three view exam was performed of the left ankle. Trimalleolar fracture with disruption of the ankle m ortise has been partially reduced with near anatomic alignment of the distal tibia and the talar dome . CONCLUSION: Partial reduction of the trimalleolar fracture-dislocation. Arnulfo Quintanilla MD on March 05, 2018 at 12:39 Board Certified Radiologist. This report was verified electronically.
[2018-03-05 13:27] VITALS: BP 118/57; PULSE 57; RESP 18; O2SAT 99
[2018-03-05] MEDS ORDERED: PROPOFOL 500 MG/50 ML BTL IV ONE (14:00)
[2018-03-05 14:09] VITALS: O2SAT 98
--- NOTE | 2018-03-05 14:42 | RADRPT ---
EXAM DATE/TIME: 03/05/2018 14:12 [facility] COMPARISON: No previous studies available for comparison. INDICATIONS : Post reduction left ankle. MEDICAL HISTORY : None. SURGICAL HISTORY : None. ENCOUNTER: Initial ACUITY: 1 day PAIN SCORE: 0/10 LOCATION: Left Ankle. FINDINGS: Patient is status post reduction of left ankle fracture dislocation. A displaced fracture of the medi al malleolus of the distal tibia, posterior malleolus, and distal fibula are again noted with improve d alignment. Cast in place. CONCLUSION: Distal tibia and fibular fractures are noted with soft tissue swelling. Eriberto Ramon MD on March 05, 2018 at 14:40 Board Certified Radiologist. This report was verified electronically.
--- NOTE | 2018-03-05 15:41 | HHI.HP ---
[facility] Service [facility] Admission Diagnosis L ankle fracture and dislocation Diagnoses: Chief Complaint: sp fall Travel History International Travel<30 Days: No Contact w/Intl Traveler <30 Da: No Traveled to Known Affected Are: No History of Present Illness This is a 77-year-old male with past medical history significant for aortic valve replacement on Coumadin, hypertension, hyperlipidemia, CAD and GERD, presented to the ER after a fall. The patient states that he was walking his dog, tripped over his cane and fell. The patient denies any pain in his lower extremities, however he states that he when he tried to get up then he could not. The patient otherwise denies any chest pain, shortness of breath, fevers, chills, dysuria, nausea, vomiting, diarrhea, dizziness. Denies hitting his head or losing consciousness. Review of Systems As per HPI, other systems reviewed by me and negative. Past Family Social History Past Medical History 1. Hypertension. 2. CAD. 3. Mechanical AVR on Coumadin. 4. GERD 5. Hyperlipidemia. Past Surgical History 1. Mechanical AVR. 2. ORIF of the right femoral fracture. Reported Medications Reported Klor-Con 10 (Potassium Chloride) 10 Meq Tab 10 Meq PO DAILY Prilosec (Omeprazole Magnesium) 20 Mg Tab Toprol XL (Metoprolol Succinate) 25 Mg Tab 25 Mg PO DAILY Hydrochlorothiazide 50 Mg Tab 50 Mg PO DAILY Lasix (Furosemide) 40 Mg Tab 40 Mg PO DAILY Zetia (Ezetimibe) 10 Mg Tab 10 Mg PO DAILY Aspirin 81 Mg Chew 81 Mg CHEW DAILY Allergies: Coded Allergies: No Known Allergies (Verified , MRI CONVERSION, 04/19/17) Active Ordered Medications Reported Meds & Active Scripts Active Reported Klor-Con 10 (Potassium Chloride) 10 Meq Tab 10 Meq PO DAILY Prilosec (Omeprazole Magnesium) 20 Mg Tab Toprol XL (Metoprolol Succinate) 25 Mg Tab 25 Mg PO DAILY Hydrochlorothiazide 50 Mg Tab 50 Mg PO DAILY Lasix (Furosemide) 40 Mg Tab 40 Mg PO DAILY Zetia (Ezetimibe) 10 Mg Tab 10 Mg PO DAILY Aspirin 81 Mg Chew 81 Mg CHEW DAILY Family History Denies family history of diabetes, cancer or heart disease. States his parents from old age. Social History The patient is a former smoker. He quit in 1982. Denies alcohol intake. Denies illicit drug use. Physical Exam Vital Signs Vital Signs Date Time Temp Pulse Resp B/P (MAP) Pulse Ox O2 Delivery O2 Flow Rate FiO2 03/05/18 14:09 98 Nasal Cannula 3.00 03/05/18 14:09 98 03/05/18 14:09 98 3.00 03/05/18 13:27 57 18 118/57 (77) 99 Nasal Cannula 2.00 03/05/18 12:09 68 18 119/60 (79) 97 Room Air 03/05/18 10:04 98.5 58 18 153/73 (99) 98 Room Air Physical Exam GENERAL: This is a well-nourished, well-developed patient, in no apparent distress. SKIN: No rashes, ecchymoses or lesions. Cool and dry. HEAD: Atraumatic. Normocephalic. No temporal or scalp tenderness. EYES: Pupils equal round and reactive. Extraocular motions intact. No scleral icterus. No injection or drainage. ENT: Nose without bleeding, purulent drainage or septal hematoma. Throat without erythema, tonsillar hypertrophy or exudate. Uvula midline. Airway patent. NECK: Trachea midline. No JVD or lymphadenopathy. Supple, nontender, no meningeal signs. CARDIOVASCULAR: Regular rate and rhythm without murmurs, gallops, or rubs. Loud S2. RESPIRATORY: Clear to auscultation. Breath sounds equal bilaterally. No wheezes , rales, or rhonchi. GASTROINTESTINAL: Abdomen soft, non-tender, nondistended. No hepato-splenomegaly , or palpable masses. No guarding. MUSCULOSKELETAL: Extremities without clubbing, cyanosis, or edema. No calf tenderness bilaterally. Good palpable right pedal pulse. Left foot has good capillary refill of less than [address] NEUROLOGICAL: Awake and alert. Cranial nerves II through XII intact. Motor and sensory grossly within normal limits. Five out of 5 muscle strength in all muscle groups. Normal speech. Laboratory Laboratory Tests Test 03/05/18 10:22 White Blood Count 9.2 Red Blood Count 4.37 Hemoglobin 13.4 Hematocrit 40.2 Mean Corpuscular Volume 91.9 Mean Corpuscular Hemoglobin 30.7 Mean Corpuscular Hemoglobin Concent 33.4 Red Cell Distribution Width 13.5 Platelet Count 249 Mean Platelet Volume 8.9 Neutrophils (%) (Auto) 69.7 Lymphocytes (%) (Auto) 17.4 Monocytes (%) (Auto) 9.8 Eosinophils (%) (Auto) 2.5 Basophils (%) (Auto) 0.6 Neutrophils # (Auto) 6.4 Lymphocytes # (Auto) 1.6 Monocytes # (Auto) 0.9 Eosinophils # (Auto) 0.2 Basophils # (Auto) 0.1 CBC Comment DIFF FINAL Differential Comment Prothrombin Time 20.0 Prothromb Time International Ratio 2.0 Activated Partial Thromboplast Time 34.1 Blood Urea Nitrogen 20 Creatinine 1.08 Random Glucose 116 Total Protein 6.7 Albumin 3.5 Calcium Level 9.0 Alkaline Phosphatase 73 Aspartate Amino Transf (AST/SGOT) 25 Alanine Aminotransferase (ALT/SGPT) 23 Total Bilirubin 0.4 Sodium Level 138 Potassium Level 5.0 Chloride Level 103 Carbon Dioxide Level 25.5 Anion Gap 10 Estimat Glomerular Filtration Rate 67 Result Diagram: 03/05/18 1022 03/05/18 1022 Imaging Last Impressions Ankle X-Ray 03/05/18 1406 Signed Impressions: Service Date/Time: Monday, March 05, 2018 14:12 - CONCLUSION: Distal tibia and fibular fractures are noted with soft tissue swelling. Eriberto Ramon MD Chest X-Ray 03/05/18 1054 Signed Impressions: Service Date/Time: Monday, March 05, 2018 11:01 - CONCLUSION: No acute disease. Eriberto Ramon MD Tibia/Fibula X-Ray 03/05/18 1027 Signed Impressions: Service Date/Time: Monday, March 05, 2018 10:48 - CONCLUSION: Tibial and fibular fractures with soft tissue swelling and deformity at the ankle. Eriberto Ramon MD Knee X-Ray 03/05/18 1027 Signed Impressions: Service Date/Time: Monday, March 05, 2018 10:53 - CONCLUSION: Unremarkable limited examination of the left knee. Eriberto Ramon MD Foot X-Ray 03/05/18 1027 Signed Impressions: Service Date/Time: Monday, March 05, 2018 10:56 - CONCLUSION: Fracture dislocation at the ankle. MD Benjamín Vitale VTE Risk Assessment Caprini VTE Risk Assessment: Mod/High Risk (score >= 2) VTE Pharm Contraindication: Patient on Coumadin with therapeutic INR, will be started on heparin bridge for surgery. Caprini Risk Assessment Model Point Value = 1 Point Value = 2 Point Value = 3 Point Value = 5 Age 41-60 Minor surgery BMI > 25 kg/m2 Swollen legs Varicose veins or History of unexplained or recurrent spontaneous Oral contraceptives or hormone replacement Sepsis (< 1 month) Serious lung disease, including pneumonia (< 1 month) Abnormal pulmonary function Acute myocardial infarction Congestive heart failure (< 1 month) History of inflammatory bowel disease Medical patient at bed rest Age 61-74 Arthroscopic surgery Major open surgery (> 45 min) Laparoscopic surgery (> 45 min) Malignancy Confined to bed (> 72 hours) Immobilizing plaster cast Central venous access Age >= 75 History of VTE Family history of VTE Factor V Leiden Prothrombin [id number] Lupus anticoagulant Anticardiolipin antibodies Elevated serum homocysteine Heparin-induced thrombocytopenia Other congenital or acquired thrombophilia Stroke (< 1 month) Elective arthroplasty Hip, pelvis, or leg fracture Acute spinal cord injury (< 1 month) Prophylaxis Regimen Total Risk Factor Score Risk Level Prophylaxis Regimen 0-1 Low Early ambulation 2 Moderate Order ONE of the following: *Sequential Compression Device (SCD) *Heparin 5000 units SQ BID 3-4 Higher Order ONE of the following medications: *Heparin 5000 units SQ TID *Enoxaparin/Lovenox 40 mg SQ daily (WT < 150 kg, CrCl > 30 mL/min) *Enoxaparin/Lovenox 30 mg SQ daily (WT < 150 kg, CrCl > 10-29 mL/min) *Enoxaparin/Lovenox 30 mg SQ BID (WT < 150 kg, CrCl > 30 mL/min) AND/OR *Sequential Compression Device (SCD) 5 or more Highest Order ONE of the following medications: *Heparin 5000 units SQ TID (Preferred with Epidurals) *Enoxaparin/Lovenox 40 mg SQ daily (WT < 150 kg, CrCl > 30 mL/min) *Enoxaparin/Lovenox 30 mg SQ daily (WT < 150 kg, CrCl > 10-29 mL/min) *Enoxaparin/Lovenox 30 mg SQ BID (WT < 150 kg, CrCl > 30 mL/min) AND *Sequential Compression Device (SCD) Assessment and Plan Problem List: (1) Ankle fracture, left ICD Code: S82.892A - Other fracture of left lower leg, initial encounter for closed fracture Status: Acute (2) History of mechanical aortic valve replacement ICD Code: Z95.2 - History of mechanical aortic valve replacement Status: Acute (3) Hypertension ICD Code: I10 - Hypertension Status: Acute (4) Hyperlipidemia ICD Code: E78.5 - Hyperlipidemia Status: Acute (5) Fall ICD Code: W19.XXXA - Unspecified fall, initial encounter Assessment and Plan This is a 77-year-old male with past medical history of CAD, hypertension, hyperlipidemia, AVR on chronic articulation with Coumadin, GERD who presents to [facility] after mechanical fall with subsequent left ankle fracture. Admit the patient to the orthopedic floor. Orthopedic surgery consulted. ED physician spoke to orthopedic surgery -Dr. Gooden who recommended keeping the patient n.p.o. after midnight in preparation for surgical procedure in a.m. Pain control with oral Percocet and IV morphine for breakthrough pain. Hold Coumadin and start the patient IV heparin for AVR, heparin, discontinued hours prior to the procedure. Keep n.p.o. after midnight. SCDs in unaffected leg. Continue metoprolol succinate for hypertension which is stable. Hold aspirin. Continue Lasix Continue Zetia for hyperlipidemia. Continue PPI for GERD. Code Status Full code Discussed Condition With Patient, ED physician. Physician Certification 2 Midnight Certification Type: Admission for Inpatient Services Order for Inpatient Services The services are ordered in accordance with Medicare regulations or non- Medicare payer requirements, as applicable. In the case of services not specified as inpatient-only, they are appropriately provided as inpatient services in accordance with the 2-midnight benchmark. Estimated LOS (days): 2 days is the estimated time the patient will need to remain in the hospital, assuming treatment plan goals are met and no additional complications. Post-Hospital Plan: Not yet determined Problem Qualifiers (1) Ankle fracture, left: Qualified Codes: S82.892A - Other fracture of left lower leg, initial encounter for closed fracture Kulwant Tomas MD March 05, 2018 15:41
[2018-03-05] MEDS ORDERED: SENNOSIDES 8.6 MG TAB PO PRN (15:45)
[2018-03-05] MEDS ORDERED: ONDANSETRON ODT 4 MG TAB PO PRN (15:45)
[2018-03-05] MEDS ORDERED: MAGNESIUM HYDROXIDE SUSP 30 ML CUP PO PRN (15:45)
[2018-03-05] MEDS ORDERED: NALOXONE HCL 0.4 MG/ML AMP IV PUSH PRN (15:45)
[2018-03-05] MEDS ORDERED: BISACODYL 10 MG SUPP RECTAL PRN (15:45)
[2018-03-05] MEDS ORDERED: LACTULOSE SYRUP 20 GM/30 ML CUP PO PRN (15:45)
[2018-03-05] MEDS ORDERED: ZOLPIDEM TARTRATE 5 MG TAB PO PRN (15:45)
[2018-03-05] MEDS ORDERED: ONDANSETRON HCL 4 MG/2 ML VIAL IVP PRN (15:45)
[2018-03-05] MEDS ORDERED: SODIUM CHLORIDE 0.9% FLUSH 10 ML FLUSH IV FLUSH PRN (15:45)
[2018-03-05] MEDS: ACETAMINOPHEN 325 MG TAB PO PRN ×2 (16:25→19:59)
[2018-03-05 16:54] VITALS: BP 127/62; PULSE 64; RESP 18; TEMP 97.4; O2SAT 96
[2018-03-05] MEDS ORDERED: HEPARIN-D5W 25,000 U/250 ML 250 ML IV PRN ×2 (17:00→23:45)
[2018-03-05] MEDS: DOCUSATE SODIUM 50 MG/SENNA 8.6 MG TAB PO SCH (19:52)
[2018-03-05] MEDS: SODIUM CHLORIDE 0.9% FLUSH 10 ML FLUSH IV FLUSH SCH (19:52)
[2018-03-05 20:05] VITALS: BP 159/68; PULSE 74; RESP 17; TEMP 98; O2SAT 93
[2018-03-05] MEDS ORDERED: ACETAMINOPHEN/HYDROcodone 325 MG/10 MG TAB PO PRN (21:45)
[2018-03-05] MEDS ORDERED: MORPHINE SULFATE 2 MG/ML SYRINGE IV PUSH PRN (21:45)
[2018-03-05] MEDS ORDERED: ACETAMINOPHEN/HYDROcodone 325 MG/5 MG TAB PO PRN (21:45)
[2018-03-05] MEDS ORDERED: POVIDONE IODINE 5% (ANTISEPSIS KIT) 4 APPLICATIONS EACH NARE PRN (22:00)
[2018-03-05] MEDS ORDERED: LACTATED RINGER'S 1000 ML IV PRN (22:00)
[2018-03-05] MEDS ORDERED: METOPROLOL TARTRATE 25 MG TAB PO PRN (22:00)
[2018-03-05] MEDS ORDERED: CHLORHEXIDINE GLUCONATE 2 % 1 PACK (2 CLOTHS) TOPICAL PRN (22:00)
[2018-03-05] MEDS ORDERED: SODIUM CHLORID 0.9% 500 ML IV PRN (22:00)
[2018-03-05] MEDS: MORPHINE SULFATE 4 MG/ML INJ IV PUSH PRN (22:15)
[2018-03-06] VITALS (7 sets, daily range): BP systolic 118–182; BP diastolic 58–83; PULSE 69–95; RESP 17–21; TEMP 97.4–99; O2SAT 92–96
[2018-03-06] MEDS: MORPHINE SULFATE 4 MG/ML INJ IV PUSH PRN (04:40)
[2018-03-06] MEDS ORDERED: ACETAMINOPHEN 1000 MG/100 ML 100 ML IV ONE (05:58)
[2018-03-06 07:15] LABS: AUTOMATED NEUTROPHIL # 6.8 TH/MM3 (1.8-7.7); BASOPHIL % 0.4 % (0.0-2.0); EOSINOPHIL # 0.2 TH/MM3 (0-0.4); HEMATOCRIT 38.4 % (39.0-51.0); LYMPH % 15.9 % (9.0-44.0); LYMPHOCYTE # 1.5 TH/MM3 (1.0-4.8); MEAN CELL VOLUME 91.7 FL (80.0-100.0); MEAN CORPUSCULAR HGB CONC 33.8 % (32.0-36.0); MEAN PLATELET VOLUME 8.6 FL (7.0-11.0); MONO % 11.1 % (0.0-8.0); MONOCYTE # 1.1 TH/MM3 (0-0.9); NEUT % 70.6 % (16.0-70.0); PLATELET COUNT 227 TH/MM3 (150-450); RED BLOOD COUNT 4.19 MIL/MM3 (4.50-5.90); RED CELL DISTRIBUTION WIDTH 13.1 % (11.6-17.2); WHITE BLOOD COUNT 9.6 TH/MM3 (4.0-11.0)
[2018-03-06] MEDS ORDERED: BUPIVACAINE/EPINEPHRINE 0.5% PF 10 ML VIAL ONE (07:20)
[2018-03-06] MEDS ORDERED: GENTAMICIN SULFATE 80 MG/2 ML VIAL ONE (07:21)
[2018-03-06 07:22] LABS: INTERNATIONAL NORMALIZED RATIO 1.6 RATIO; PROTHROMBIN TIME - PATIENT 16.1 SEC (9.8-11.6)
[2018-03-06] MEDS ORDERED: fentaNYL CITRATE 250 MCG/5 ML AMP ONE (07:28)
[2018-03-06 07:42] LABS: ALBUMIN 3.3 GM/DL (3.4-5.0); ALT (GPT) 21 U/L (12-78); AST (GOT) 25 U/L (15-37); BICARBONATE 28.2 MEQ/L (21.0-32.0); BLOOD UREA NITROGEN 15 MG/DL (7-18); CALCIUM 8.9 MG/DL (8.5-10.1); CHLORIDE 104 MEQ/L (98-107); CREATININE 1.03 MG/DL (0.60-1.30); GLOMERULAR FILTRATION RATE 70 ML/MIN (>89); GLUCOSE,RANDOM 112 MG/DL (74-106); SODIUM (NA) 140 MEQ/L (136-145)
[2018-03-06 07:43] LABS: ALKALINE PHOSPHATASE 77 U/L (45-117); TOTAL BILIRUBIN ADULT 0.6 MG/DL (0.2-1.0); TOTAL PROTEIN 6.6 GM/DL (6.4-8.2)
[2018-03-06] MEDS ORDERED: ceFAZolin 2 GM PREMIX 50 ML ONE (07:44)
--- NOTE | 2018-03-06 08:28 | MB ---
cc: Jimenez Rm MD DATE: 03/06/2018 REASON FOR CONSULTATION: Left ankle fracture dislocation with trimalleolar fracture. HISTORY OF PRESENT ILLNESS: Benny Cooper is a 77-year-old male who usually ambulates with a cane for balance reasons, sustained a fall at his home when he was walking his dog. He states he normally uses a cane in the right hand but he was using in the left hand because the dog was a little more active and he ultimately tripped over his cane and sustained a severe injury to his left ankle. He was brought to [facility], where he was found to have a trimalleolar fracture with a fracture dislocation. The patient was admitted to the medical service with consultation with the undersigned. He did undergo closed reduction by the emergency room physician and I did consult over the telephone to help guide her in this regard. Followup x-rays did show significant improvement in overall alignment of the bone. PAST MEDICAL HISTORY: Significant for history of aortic valve replacement and on Coumadin. He also has hypertension, coronary artery disease, gastroesophageal reflux disease, and hyperlipidemia. PAST SURGICAL HISTORY: He has had previous surgery for the aortic valve replacement and open reduction and internal fixation of the right femur. MEDICATIONS: 1. Hydrochlorothiazide. 2. Potassium. 3. Prilosec. 4. ____ 5. Lasix. 6. Zetia. 7. Daily aspirin. ALLERGIES: HE HAS NO KNOWN DRUG ALLERGIES. REVIEW OF SYSTEMS: He states that prior to this injury he has been stable, so review of systems is otherwise negative. SOCIAL HISTORY: He has past history of tobacco use. Does not use tobacco, alcohol or drugs. He is , lives with his . PHYSICAL EXAMINATION: GENERAL: The patient alert, oriented, appropriate. HEENT: Head is atraumatic, normocephalic. Extraocular muscles are intact. CHEST: Benign. ABDOMEN: Benign. MUSCULOSKELETAL: Upper extremity examination benign. Right lower extremity examination benign. Left lower extremity shows a sugar-tong splint in place. He has good capillary refills. ASSESSMENT: Left ankle trimalleolar fracture. PLAN: The risks, the benefits and the alternatives to treatment were thoroughly discussed with the patient. The recommendation is to proceed with open reduction and internal fixation. We did do a repeat INR this morning which showed that it improved from 2.0 to 1.6 and is appropriate to proceed with surgery at this time. We talked about the risk of infection, plan to use prophylactic antibiotics, the risk of nerve damage, blood vessel damage, mechanical complications like failure of the internal fixation and need for revision surgery, the possibility of anesthetic complications, medical complications, unforeseen possible complications. All of his questions were answered. He wished to press on with surgery. A detailed informed consent was obtained. It is a medically necessary to have a well qualified first line production supervisor for the surgery and it is also appropriate for postoperative care that nurse practitioner will help with management of the patient in coordination with me. MD DIANE Hay/JUSITN , 08:09 AM , 08:28 AM
[2018-03-06] MEDS: EZETIMIBE 10 MG TAB PO SCH (09:00)
[2018-03-06] MEDS: METOPROLOL SUCCINATE 25 MG EXTENDED RELEASE TAB PO SCH (09:00)
[2018-03-06] MEDS: SODIUM CHLORIDE 0.9% FLUSH 10 ML FLUSH IV FLUSH SCH ×2 (09:00→19:57)
--- NOTE | 2018-03-06 09:41 | PD.OP ---
Operative Report Preoperative Diagnosis: (1) Trimalleolar fracture of left ankle Postoperative Diagnosis: (1) Trimalleolar fracture of left ankle Procedure: Left Ankle Trimaleolar Fracture Open reduction and internal fixation Surgeon: Jimenez Rm Sheet Metal Insulator(s): Ventura SALEH Operation and Findings: see dictation Jimenez Rm MD March 06, 2018 09:41
[2018-03-06] MEDS ORDERED: Post-op Orders (for Pharmacy) XX ONE (09:45)
[2018-03-06] MEDS ORDERED: NURSING INFORMATION XX PRN (09:45)
[2018-03-06] MEDS ORDERED: oxyCODONE/ACETAMINOPHEN 5 MG/325 MG TAB PO PRN (09:45)
[2018-03-06] MEDS ORDERED: SODIUM CHLORIDE 0.9% FLUSH 10 ML FLUSH IV FLUSH PRN (09:45)
[2018-03-06] MEDS ORDERED: diphenhydrAMINE HCL 25 MG CAP PO PRN (09:45)
[2018-03-06] MEDS ORDERED: MORPHINE SULFATE 30 MG/30 ML PCA IV SCH (09:45)
[2018-03-06] MEDS: DEXT 5%-NACL 0.45% 1000 ML INJ 1,000 ML IV SCH ×2 (10:00→20:00)
[2018-03-06] MEDS ORDERED: *morphine SULFATE 4 MG/ML PERIprocedure ONLY ONE (10:01)
[2018-03-06] MEDS ORDERED: DO NOT ADM ANY ANTICOAGULANT DRUGS PRN (10:30)
--- NOTE | 2018-03-06 10:41 | MP ---
cc: Jimenez Rm MD DATE OF OPERATION: 03/06/2018 DATE OF PROCEDURE: 03/06/2018 PREOPERATIVE DIAGNOSIS: Left ankle trimalleolar fracture dislocation. POSTOPERATIVE DIAGNOSIS: Left ankle trimalleolar fracture dislocation. PROCEDURE PERFORMED: Left ankle open reduction and internal fixation of trimalleolar fracture. ANESTHETIC: General. SURGEON: Jimenez Rm MD SAMPLING THEORY TEACHER SURGEON: THERESE Aguilar ESTIMATED BLOOD LOSS: 50 mL. Drain: NONE. SPECIMENS: None. TOURNIQUET TIME: None. COMPLICATIONS: None known. INDICATION FOR PROCEDURE: Benny Cooper is a 77-year-old male who sustained a fracture dislocation to his left ankle while walking his dog and tripping over his cane. He underwent a closed reduction in the Emergency Room yesterday. He now is indicated for surgical repair. Risks, benefits, and alternatives of treatment were thoroughly discussed and a detailed informed consent was obtained. DESCRIPTION OF PROCEDURE: The patient was brought into the operating room. He was placed under general anesthetic. The left lower extremity was prepped and draped in the usual sterile fashion. IV antibiotics were given. Timeout was completed. It should be noted that the surgical first assistant is an advanced registered nurse practitioner. His skill set is medically necessary for the performance of the operation. We initially proceeded with a closed reduction of the ankle joint and fine tune the posterior malleolus fracture and then placed the C-arm in the lateral position and used cannulated 4.0 screws to fixate the posterior malleolus fracture. Fluoroscopy confirmed good alignment in the AP view as well as the lateral view. We then proceeded to the medial malleolus with an open based incision, anatomically aligned and clamped and fixated with two 4.0, 38 mm long screws. We then proceeded with lateral malleolus fixation and evaluated, reduced, anatomically aligned, clamped, interfragmentary screw, good compression and a neutralization 5-hole plate with 2 screws distal and 2 screws proximal. Hard copy AP and lateral and oblique views show the reduction, which looks very anatomic. We irrigated with copious amounts of irrigation. Proceeded to close with absorbable suture, nylon on the skin. Xeroform applied. Sterile dressing applied. Sugar-tong splint applied. Patient was awoken and returned to the recovery room in stable condition. MD DIANE Hay/JUSTIN , 09:51 AM , 10:41 AM
[2018-03-06] MEDS: FUROSEMIDE 40 MG TAB PO SCH (10:54)
[2018-03-06] MEDS: DOCUSATE SODIUM 50 MG/SENNA 8.6 MG TAB PO SCH ×2 (10:55→19:57)
[2018-03-06] MEDS: HYDROCHLOROTHIAZIDE 50 MG TAB PO SCH (10:55)
[2018-03-06] MEDS ORDERED: PHENYLEPH/NS 1000 MCG/10 ML SYR IV ONE (12:00)
[2018-03-06] MEDS ORDERED: LIDOCAINE HCL 1% PF 5 ML SYRINGE OTHER ONE (12:00)
[2018-03-06] MEDS ORDERED: ONDANSETRON HCL 4 MG/2 ML VIAL IV PUSH ONE (12:00)
[2018-03-06] MEDS ORDERED: PROPOFOL 200 MG/20 ML AMP IV ONE (12:00)
[2018-03-06] MEDS ORDERED: LACTATED RINGER'S 1000 ML INJ 1,000 ML IV ONE (12:00)
[2018-03-06] MEDS ORDERED: DEXAMETHASONE SOD PHOS 4 MG/ML VIAL IV ONE (12:00)
--- NOTE | 2018-03-06 13:44 | EKG ---
Date Performed: 03/05/2018 Time Performed: 22:13:30 PTAGE: 77 years EKG: Sinus rhythm LOW QRS VOLTAGE IN PRECORDIAL LEADS INFERIOR MYOCARDIAL INFARCTION , PROBABLY OLD ABNORMAL ECG PREVIOUS TRACING : 11/19/2015 22.36 Since the previous tracing, no significant change noted DOCTOR: Paul Forbes Interpretating Date/Time 03/06/2018 13:42:27
[2018-03-06] MEDS ORDERED: COUM7.5T PO (13:45)
[2018-03-06] MEDS ORDERED: COUM5TAB PO (13:45)
[2018-03-06] MEDS: PCA - TOTAL MG MORPHINE DELIVERED PER SHIFT SCH ×2 (14:00→21:49)
[2018-03-06 15:23] LABS: MEAN CORPUSCULAR HGB CONC 33.3 % (32.0-36.0); MEAN PLATELET VOLUME 9.3 FL (7.0-11.0); PLATELET COUNT 238 TH/MM3 (150-450); RED BLOOD COUNT 4.19 MIL/MM3 (4.50-5.90); RED CELL DISTRIBUTION WIDTH 13.2 % (11.6-17.2); WHITE BLOOD COUNT 13.5 TH/MM3 (4.0-11.0)
--- NOTE | 2018-03-06 15:25 | RADRPT ---
EXAM DATE/TIME: 03/06/2018 08:38 [place] COMPARISON: ANKLE LEFT COMPLETE ([id number]), March 05, 2018, 14:12. INDICATIONS : ORIF left ankle. MEDICAL HISTORY : Unobtainable. SURGICAL HISTORY : Unobtainable. ENCOUNTER: Initial ACUITY: 1 day PAIN SCORE: Non-responsive. LOCATION: Left Ankle. FINDINGS: Interval compression screw fixation of the distal tibia and plate and screw fixation of the distal fi bula. Hardware appears intact and well-positioned. Alignment is near-anatomic. CONCLUSION: 1. Left ankle ORIF, as above. Brody Wright MD on March 06, 2018 at 15:22 Board Certified Radiologist. This report was verified electronically.
[2018-03-06 15:32] LABS: INTERNATIONAL NORMALIZED RATIO 1.7 RATIO; PROTHROMBIN TIME - PATIENT 17.4 SEC (9.8-11.6)
--- NOTE | 2018-03-06 17:13 | HHI.PR ---
Subjective Remarks Patient seen sitting up in bed eating S/P Left ankle open reduction and internal fixation of trimalleolar fracture. 03/06/[address] Rm Objective Vitals Vital Signs Date Time Temp Pulse Resp B/P (MAP) Pulse Ox O2 Delivery O2 Flow Rate FiO2 03/06/18 16:00 99.0 95 20 158/73 (101) 93 03/06/18 14:27 93 Nasal Cannula 3.00 03/06/18 12:00 97.4 72 18 142/67 (92) 96 03/06/18 10:18 16 03/06/18 10:15 68 16 165/76 (105) 96 Nasal Cannula 2 03/06/18 10:03 74 16 170/79 (109) 94 Nasal Cannula 2 03/06/18 09:49 98.6 87 16 174/83 (113) 93 Room Air 03/06/18 06:27 98.1 80 18 149/66 (93) 95 03/06/18 04:35 98.0 81 17 182/83 (116) 92 03/06/18 00:15 97.9 69 17 118/58 (78) 92 03/05/18 20:05 98.0 74 17 159/68 (98) 93 03/05/18 17:25 18 I/O 03/05/18 03/05/18 03/05/18 03/06/18 03/06/18 03/06/18 07:00 15:00 23:00 07:00 15:00 23:00 Intake Total 360 ml 700 ml Output Total 1000 ml 100 ml Balance -640 ml 600 ml Intake Oral 360 ml IV Total 700 ml Output Urine Total 1000 ml Estimated Blood Loss 50 ml Other 50 ml # Bowel Movements 0 Result Diagram: 03/06/18 1400 03/06/18 0633 Other Results Laboratory Tests Test 03/05/18 10:22 03/05/18 22:27 03/06/18 06:14 03/06/18 06:33 White Blood Count 9.2 TH/MM3 9.6 TH/MM3 Red Blood Count 4.37 MIL/MM3 4.19 MIL/MM3 Hemoglobin 13.4 GM/DL 13.0 GM/DL Hematocrit 40.2 % 38.4 % Mean Corpuscular Volume 91.9 FL 91.7 FL Mean Corpuscular Hemoglobin 30.7 PG 31.0 PG Mean Corpuscular Hemoglobin Concent 33.4 % 33.8 % Red Cell Distribution Width 13.5 % 13.1 % Platelet Count 249 TH/MM3 227 TH/MM3 Mean Platelet Volume 8.9 FL 8.6 FL Neutrophils (%) (Auto) 69.7 % 70.6 % Lymphocytes (%) (Auto) 17.4 % 15.9 % Monocytes (%) (Auto) 9.8 % 11.1 % Eosinophils (%) (Auto) 2.5 % 2.0 % Basophils (%) (Auto) 0.6 % 0.4 % Neutrophils # (Auto) 6.4 TH/MM3 6.8 TH/MM3 Lymphocytes # (Auto) 1.6 TH/MM3 1.5 TH/MM3 Monocytes # (Auto) 0.9 TH/MM3 1.1 TH/MM3 Eosinophils # (Auto) 0.2 TH/MM3 0.2 TH/MM3 Basophils # (Auto) 0.1 TH/MM3 0.0 TH/MM3 CBC Comment DIFF FINAL DIFF FINAL Differential Comment Prothrombin Time 20.0 SEC 16.1 SEC Prothromb Time International Ratio 2.0 RATIO 1.6 RATIO Activated Partial Thromboplast Time 34.1 SEC 38.1 SEC Blood Urea Nitrogen 20 MG/DL 15 MG/DL Creatinine 1.08 MG/DL 1.03 MG/DL Random Glucose 116 MG/DL 112 MG/DL Total Protein 6.7 GM/DL 6.6 GM/DL Albumin 3.5 GM/DL 3.3 GM/DL Calcium Level 9.0 MG/DL 8.9 MG/DL Alkaline Phosphatase 73 U/L 77 U/L Aspartate Amino Transf (AST/SGOT) 25 U/L 25 U/L Alanine Aminotransferase (ALT/SGPT) 23 U/L 21 U/L Total Bilirubin 0.4 MG/DL 0.6 MG/DL Sodium Level 138 MEQ/L 140 MEQ/L Potassium Level 5.0 MEQ/L 4.5 MEQ/L Chloride Level 103 MEQ/L 104 MEQ/L Carbon Dioxide Level 25.5 MEQ/L 28.2 MEQ/L Anion Gap 10 MEQ/L 8 MEQ/L Estimat Glomerular Filtration Rate 67 ML/MIN 70 ML/MIN Test 03/06/18 14:00 White Blood Count 13.5 TH/MM3 Red Blood Count 4.19 MIL/MM3 Hemoglobin 13.0 GM/DL Hematocrit 39.0 % Mean Corpuscular Volume 93.0 FL Mean Corpuscular Hemoglobin 31.0 PG Mean Corpuscular Hemoglobin Concent 33.3 % Red Cell Distribution Width 13.2 % Platelet Count 238 TH/MM3 Mean Platelet Volume 9.3 FL Prothrombin Time 17.4 SEC Prothromb Time International Ratio 1.7 RATIO Activated Partial Thromboplast Time 35.0 SEC Imaging Last Impressions Ankle X-Ray 03/06/18 0000 Signed Impressions: Service Date/Time: Tuesday, March 06, 2018 08:38 - CONCLUSION: 1. Left ankle ORIF, as above. Brody Wright MD Chest X-Ray 03/05/18 1054 Signed Impressions: Service Date/Time: Monday, March 05, 2018 11:01 - CONCLUSION: No acute disease. Eriberto Ramon MD Tibia/Fibula X-Ray 03/05/18 1027 Signed Impressions: Service Date/Time: Monday, March 05, 2018 10:48 - CONCLUSION: Tibial and fibular fractures with soft tissue swelling and deformity at the ankle. Eriberto Ramon MD Knee X-Ray 03/05/18 1027 Signed Impressions: Service Date/Time: Monday, March 05, 2018 10:53 - CONCLUSION: Unremarkable limited examination of the left knee. Eriberto Ramon MD Foot X-Ray 03/05/18 1027 Signed Impressions: Service Date/Time: Monday, March 05, 2018 10:56 - CONCLUSION: Fracture dislocation at the ankle. Eriberto Ramon MD Objective Remarks GENERAL: This is a well-nourished, well-developed patient, in no apparent distress. CARDIOVASCULAR: Regular rate and rhythm RESPIRATORY: Clear to auscultation. Breath sounds equal bilaterally. GASTROINTESTINAL: Abdomen soft, non-tender, nondistended. Normal active bowel sounds MUSCULOSKELETAL: Extremities without clubbing, cyanosis, or edema. Post-op dressing dry and intact NEURO: Alert & Oriented x4 to person, place, time, situation. Moves all ext x4 Procedures Left ankle open reduction and internal fixation of trimalleolar fracture. with Dr. Rm A/P Problem List: (1) Ankle fracture, left ICD Code: S82.892A - Other fracture of left lower leg, initial encounter for closed fracture Status: Acute (2) History of mechanical aortic valve replacement ICD Code: Z95.2 - History of mechanical aortic valve replacement Status: Acute (3) Hypertension ICD Code: I10 - Hypertension Status: Acute (4) Hyperlipidemia ICD Code: E78.5 - Hyperlipidemia Status: Acute (5) Fall ICD Code: W19.XXXA - Unspecified fall, initial encounter Assessment and Plan This is a 77-year-old male with past medical history of CAD, hypertension, hyperlipidemia, AVR on chronic articulation with Coumadin, GERD who presents to [facility] after mechanical fall with subsequent left ankle fracture. Admit the patient to the orthopedic floor. Orthopedic surgery consulted. Left ankle open reduction and internal fixation of trimalleolar fracture. 03/06/[address] Rm Pain control with GLOBAL ACCOUNT MANAGER Discussed with Dr. Rm, ok to resume Coumadin (pharmacy consulted) and resume IV heparin (with no bolus) for AVR, INR in AM CBC in AM SCDs in unaffected leg. Continue metoprolol succinate for hypertension which is stable. Hold aspirin. Continue Lasix Continue Zetia for hyperlipidemia. Continue PPI for GERD. Supervising physician Dr. Aguayo Problem Qualifiers (1) Ankle fracture, left: Qualified Codes: S82.892A - Other fracture of left lower leg, initial encounter for closed fracture Tanya Amador March 06, 2018 17:13
--- NOTE | 2018-03-06 17:20 | MP ---
cc: Jimenez Rm MD, James M MD DATE OF OPERATION: cancel dictation DICTATION CANCELLED. Jimenez Banegas. MD DIANE Rm/ , 03:57 PM , 05:19 PM JIGAR
[2018-03-07] VITALS (7 sets, daily range): BP systolic 121–164; BP diastolic 59–75; PULSE 75–91; RESP 18–20; TEMP 97.7–98.7; O2SAT 92–98
[2018-03-07] MEDS: DEXT 5%-NACL 0.45% 1000 ML INJ 1,000 ML IV SCH ×2 (04:01→16:00)
[2018-03-07] MEDS: PCA - TOTAL MG MORPHINE DELIVERED PER SHIFT SCH ×3 (05:43→19:42)
[2018-03-07] MEDS: HEPARIN-D5W 25,000 U/250 ML 250 ML IV PRN ×2 (06:19→22:06)
[2018-03-07 07:10] LABS: AUTOMATED NEUTROPHIL # 14.8 TH/MM3 (1.8-7.7); BASOPHIL % 0.2 % (0.0-2.0); HEMATOCRIT 35.7 % (39.0-51.0); HEMOGLOBIN 11.8 GM/DL (13.0-17.0); LYMPH % 6.8 % (9.0-44.0); LYMPHOCYTE # 1.2 TH/MM3 (1.0-4.8); MEAN CELL VOLUME 91.6 FL (80.0-100.0); MEAN CORPUSCULAR HEMOGLOBIN 30.3 PG (27.0-34.0); MEAN CORPUSCULAR HGB CONC 33.1 % (32.0-36.0); MEAN PLATELET VOLUME 9.2 FL (7.0-11.0); MONOCYTE # 1.6 TH/MM3 (0-0.9); PLATELET COUNT 219 TH/MM3 (150-450); RED CELL DISTRIBUTION WIDTH 13.4 % (11.6-17.2); WHITE BLOOD COUNT 17.7 TH/MM3 (4.0-11.0)
[2018-03-07] MEDS: SODIUM CHLORIDE 0.9% FLUSH 10 ML FLUSH IV FLUSH SCH ×2 (09:00→19:02)
[2018-03-07] MEDS: EZETIMIBE 10 MG TAB PO SCH (09:00)
[2018-03-07] MEDS: METOPROLOL SUCCINATE 25 MG EXTENDED RELEASE TAB PO SCH (09:24)
[2018-03-07] MEDS: HYDROCHLOROTHIAZIDE 50 MG TAB PO SCH (09:24)
[2018-03-07] MEDS: DOCUSATE SODIUM 50 MG/SENNA 8.6 MG TAB PO SCH ×2 (09:25→19:41)
[2018-03-07] MEDS: FUROSEMIDE 40 MG TAB PO SCH (09:25)
[2018-03-07 09:28] LABS: INTERNATIONAL NORMALIZED RATIO 1.4 RATIO; PROTHROMBIN TIME - PATIENT 14.6 SEC (9.8-11.6)
--- NOTE | 2018-03-07 12:13 | PD.ORT.PN ---
Subjective Subjective Remarks Patient comfortable. Pain controlled. Objective Vitals Vital Signs Date Time Temp Pulse Resp B/P (MAP) Pulse Ox O2 Delivery O2 Flow Rate FiO2 03/07/18 08:00 98.7 80 18 121/62 (81) 97 03/07/18 05:43 18 03/07/18 04:09 97.7 79 20 131/60 (83) 94 03/07/18 00:00 98.5 83 20 126/59 (81) 92 03/06/18 21:49 18 03/06/18 20:00 98.3 90 21 126/66 (86) 93 03/06/18 16:00 99.0 95 20 158/73 (101) 93 03/06/18 14:27 93 Nasal Cannula 3.00 I/O 03/06/18 03/06/18 03/06/18 03/07/18 03/07/18 03/07/18 07:00 15:00 23:00 07:00 15:00 23:00 Intake Total 360 ml 700 ml 480 ml Output Total 1000 ml 100 ml 1200 ml 550 ml Balance -640 ml 600 ml -1200 ml -70 ml Intake Oral 360 ml 480 ml IV Total 700 ml Output Urine Total 1000 ml 1200 ml 550 ml Estimated Blood Loss 50 ml Other 50 ml # Bowel Movements 0 0 Result Diagram: 03/07/18 0523 03/06/18 0633 Other Results Laboratory Tests Test 03/06/18 14:00 03/07/18 09:00 Prothromb Time International Ratio 1.7 RATIO 1.4 RATIO Prothrombin Time 17.4 SEC (9.8-11.6) 14.6 SEC (9.8-11.6) Objective Remarks LLE: splint in place no drainage noted good movement of toes + sensation Assessment & Plan Assessment and Plan POD #1 Left Ankle Trimalleolar Fracture ORIF Pain management Physical therapy - Non WB D/C planning - anticipating home Monitor Ventura Wolf March 07, 2018 12:13
--- NOTE | 2018-03-07 13:25 | HHI.PR ---
Subjective Remarks Patient reports feeling well Reports anxiety requesting nicotine patch Objective Vitals Vital Signs Date Time Temp Pulse Resp B/P (MAP) Pulse Ox O2 Delivery O2 Flow Rate FiO2 03/07/18 12:00 98.1 75 18 132/60 (84) 94 03/07/18 08:00 98.7 80 18 121/62 (81) 97 03/07/18 05:43 18 03/07/18 04:09 97.7 79 20 131/60 (83) 94 03/07/18 00:00 98.5 83 20 126/59 (81) 92 03/06/18 21:49 18 03/06/18 20:00 98.3 90 21 126/66 (86) 93 03/06/18 16:00 99.0 95 20 158/73 (101) 93 03/06/18 14:27 93 Nasal Cannula 3.00 I/O 03/06/18 03/06/18 03/06/18 03/07/18 03/07/18 03/07/18 07:00 15:00 23:00 07:00 15:00 23:00 Intake Total 360 ml 700 ml 480 ml Output Total 1000 ml 100 ml 1200 ml 550 ml Balance -640 ml 600 ml -1200 ml -70 ml Intake Oral 360 ml 480 ml IV Total 700 ml Output Urine Total 1000 ml 1200 ml 550 ml Estimated Blood Loss 50 ml Other 50 ml # Bowel Movements 0 0 Result Diagram: 03/07/18 0523 03/06/18 0633 Other Results Laboratory Tests Test 03/05/18 10:22 03/05/18 22:27 03/06/18 06:14 03/06/18 06:33 White Blood Count 9.2 TH/MM3 9.6 TH/MM3 Red Blood Count 4.37 MIL/MM3 4.19 MIL/MM3 Hemoglobin 13.4 GM/DL 13.0 GM/DL Hematocrit 40.2 % 38.4 % Mean Corpuscular Volume 91.9 FL 91.7 FL Mean Corpuscular Hemoglobin 30.7 PG 31.0 PG Mean Corpuscular Hemoglobin Concent 33.4 % 33.8 % Red Cell Distribution Width 13.5 % 13.1 % Platelet Count 249 TH/MM3 227 TH/MM3 Mean Platelet Volume 8.9 FL 8.6 FL Neutrophils (%) (Auto) 69.7 % 70.6 % Lymphocytes (%) (Auto) 17.4 % 15.9 % Monocytes (%) (Auto) 9.8 % 11.1 % Eosinophils (%) (Auto) 2.5 % 2.0 % Basophils (%) (Auto) 0.6 % 0.4 % Neutrophils # (Auto) 6.4 TH/MM3 6.8 TH/MM3 Lymphocytes # (Auto) 1.6 TH/MM3 1.5 TH/MM3 Monocytes # (Auto) 0.9 TH/MM3 1.1 TH/MM3 Eosinophils # (Auto) 0.2 TH/MM3 0.2 TH/MM3 Basophils # (Auto) 0.1 TH/MM3 0.0 TH/MM3 CBC Comment DIFF FINAL DIFF FINAL Differential Comment Prothrombin Time 20.0 SEC 16.1 SEC Prothromb Time International Ratio 2.0 RATIO 1.6 RATIO Activated Partial Thromboplast Time 34.1 SEC 38.1 SEC Blood Urea Nitrogen 20 MG/DL 15 MG/DL Creatinine 1.08 MG/DL 1.03 MG/DL Random Glucose 116 MG/DL 112 MG/DL Total Protein 6.7 GM/DL 6.6 GM/DL Albumin 3.5 GM/DL 3.3 GM/DL Calcium Level 9.0 MG/DL 8.9 MG/DL Alkaline Phosphatase 73 U/L 77 U/L Aspartate Amino Transf (AST/SGOT) 25 U/L 25 U/L Alanine Aminotransferase (ALT/SGPT) 23 U/L 21 U/L Total Bilirubin 0.4 MG/DL 0.6 MG/DL Sodium Level 138 MEQ/L 140 MEQ/L Potassium Level 5.0 MEQ/L 4.5 MEQ/L Chloride Level 103 MEQ/L 104 MEQ/L Carbon Dioxide Level 25.5 MEQ/L 28.2 MEQ/L Anion Gap 10 MEQ/L 8 MEQ/L Estimat Glomerular Filtration Rate 67 ML/MIN 70 ML/MIN Test 03/06/18 14:00 03/06/18 20:33 03/07/18 05:23 03/07/18 09:00 White Blood Count 13.5 TH/MM3 17.7 TH/MM3 Red Blood Count 4.19 MIL/MM3 3.90 MIL/MM3 Hemoglobin 13.0 GM/DL 11.8 GM/DL Hematocrit 39.0 % 35.7 % Mean Corpuscular Volume 93.0 FL 91.6 FL Mean Corpuscular Hemoglobin 31.0 PG 30.3 PG Mean Corpuscular Hemoglobin Concent 33.3 % 33.1 % Red Cell Distribution Width 13.2 % 13.4 % Platelet Count 238 TH/MM3 219 TH/MM3 Mean Platelet Volume 9.3 FL 9.2 FL Prothrombin Time 17.4 SEC 14.6 SEC Prothromb Time International Ratio 1.7 RATIO 1.4 RATIO Activated Partial Thromboplast Time 35.0 SEC 51.9 SEC 100.1 SEC Neutrophils (%) (Auto) 84.0 % Lymphocytes (%) (Auto) 6.8 % Monocytes (%) (Auto) 9.0 % Eosinophils (%) (Auto) 0.0 % Basophils (%) (Auto) 0.2 % Neutrophils # (Auto) 14.8 TH/MM3 Lymphocytes # (Auto) 1.2 TH/MM3 Monocytes # (Auto) 1.6 TH/MM3 Eosinophils # (Auto) 0.0 TH/MM3 Basophils # (Auto) 0.0 TH/MM3 CBC Comment DIFF FINAL Differential Comment Test 03/07/18 12:38 Activated Partial Thromboplast Time 62.0 SEC Imaging Last Impressions Ankle X-Ray 03/06/18 0000 Signed Impressions: Service Date/Time: Tuesday, March 06, 2018 08:38 - CONCLUSION: 1. Left ankle ORIF, as above. Brody Wright MD Chest X-Ray 03/05/18 1054 Signed Impressions: Service Date/Time: Monday, March 05, 2018 11:01 - CONCLUSION: No acute disease. Eriberto Ramon MD Tibia/Fibula X-Ray 03/05/18 1027 Signed Impressions: Service Date/Time: Monday, March 05, 2018 10:48 - CONCLUSION: Tibial and fibular fractures with soft tissue swelling and deformity at the ankle. Eriberto Ramon MD Knee X-Ray 03/05/18 1027 Signed Impressions: Service Date/Time: Monday, March 05, 2018 10:53 - CONCLUSION: Unremarkable limited examination of the left knee. Eriberto Ramon MD Foot X-Ray 03/05/18 1027 Signed Impressions: Service Date/Time: Monday, March 05, 2018 10:56 - CONCLUSION: Fracture dislocation at the ankle. Eriberto Ramon MD Objective Remarks GENERAL: This is a well-nourished, well-developed patient, in no apparent distress. CARDIOVASCULAR: Regular rate and rhythm, murmur present RESPIRATORY: Clear to auscultation. Breath sounds equal bilaterally. GASTROINTESTINAL: Abdomen soft, non-tender, nondistended. Normal active bowel sounds MUSCULOSKELETAL: Extremities without clubbing, cyanosis, or edema. Post-op dressing dry and intact NEURO: Alert & Oriented x4 to person, place, time, situation. Moves all ext x4 Procedures Left ankle open reduction and internal fixation of trimalleolar fracture. with Dr. Rm A/P Problem List: (1) Ankle fracture, left ICD Code: S82.892A - Other fracture of left lower leg, initial encounter for closed fracture Status: Acute (2) History of mechanical aortic valve replacement ICD Code: Z95.2 - History of mechanical aortic valve replacement Status: Acute (3) Hypertension ICD Code: I10 - Hypertension Status: Acute (4) Hyperlipidemia ICD Code: E78.5 - Hyperlipidemia Status: Acute (5) Fall ICD Code: W19.XXXA - Unspecified fall, initial encounter Assessment and Plan This is a 77-year-old male with past medical history of CAD, hypertension, hyperlipidemia, AVR on chronic articulation with Coumadin, GERD who presents to [facility] after mechanical fall with subsequent left ankle fracture. Admit the patient to the orthopedic floor. Orthopedic surgery consulted. Left ankle open reduction and internal fixation of trimalleolar fracture. 03/06/[address] Rm Pain control with TREER- pain management per Discussed with Dr. Rm, ok to resume Coumadin (pharmacy consulted) and resume IV heparin (with no bolus) for AVR, INR (03/07) 1.4 repeat in AM CBC in AM SCDs in unaffected leg. Continue metoprolol succinate for hypertension which is stable. Hold aspirin. Continue Lasix Continue Zetia for hyperlipidemia. Continue PPI for GERD. Supervising physician Dr. Aguayo Problem Qualifiers (1) Ankle fracture, left: Qualified Codes: S82.892A - Other fracture of left lower leg, initial encounter for closed fracture Tanya Amador March 07, 2018 13:25
[2018-03-07] MEDS ORDERED: WARFARIN SOD 5 MG TAB PO SCH (16:00)
[2018-03-07] MEDS ORDERED: WARFARIN SOD 2.5 MG TAB PO ONE (16:15)
[2018-03-08] VITALS: BP 138/61; PULSE 80; RESP 20; TEMP 98.1; O2SAT 93
[2018-03-08 02:37] LABS: AUTOMATED NEUTROPHIL # 10.3 TH/MM3 (1.8-7.7); BASOPHIL # 0.1 TH/MM3 (0-0.2); BASOPHIL % 0.9 % (0.0-2.0); EOSINOPHIL # 0.2 TH/MM3 (0-0.4); EOSINOPHIL % 1.5 % (0.0-4.0); HEMATOCRIT 34.7 % (39.0-51.0); HEMOGLOBIN 11.8 GM/DL (13.0-17.0); LYMPH % 16.6 % (9.0-44.0); LYMPHOCYTE # 2.4 TH/MM3 (1.0-4.8); MEAN CELL VOLUME 91.1 FL (80.0-100.0); MEAN CORPUSCULAR HEMOGLOBIN 30.9 PG (27.0-34.0); MEAN PLATELET VOLUME 8.3 FL (7.0-11.0); MONO % 11.1 % (0.0-8.0); MONOCYTE # 1.6 TH/MM3 (0-0.9); NEUT % 69.9 % (16.0-70.0); PLATELET COUNT 236 TH/MM3 (150-450); RED BLOOD COUNT 3.81 MIL/MM3 (4.50-5.90); RED CELL DISTRIBUTION WIDTH 13.4 % (11.6-17.2); WHITE BLOOD COUNT 14.7 TH/MM3 (4.0-11.0)
[2018-03-08 02:48] LABS: INTERNATIONAL NORMALIZED RATIO 1.3 RATIO; PROTHROMBIN TIME - PATIENT 12.8 SEC (9.8-11.6)
[2018-03-08 04:00] VITALS: BP 155/72; PULSE 78; RESP 19; TEMP 97.6; O2SAT 95
[2018-03-08] MEDS: PCA - TOTAL MG MORPHINE DELIVERED PER SHIFT SCH ×2 (05:25→14:00)
[2018-03-08 05:55] LABS: HEMATOCRIT 36.8 % (39.0-51.0); HEMOGLOBIN 12.3 GM/DL (13.0-17.0); MEAN CELL VOLUME 91.8 FL (80.0-100.0); MEAN CORPUSCULAR HEMOGLOBIN 30.8 PG (27.0-34.0); MEAN CORPUSCULAR HGB CONC 33.5 % (32.0-36.0); PLATELET COUNT 240 TH/MM3 (150-450); RED CELL DISTRIBUTION WIDTH 13.6 % (11.6-17.2); WHITE BLOOD COUNT 14.4 TH/MM3 (4.0-11.0)
[2018-03-08 08:00] VITALS: BP 178/80; PULSE 85; RESP 18; TEMP 98.1; O2SAT 93
[2018-03-08] MEDS: SODIUM CHLORIDE 0.9% FLUSH 10 ML FLUSH IV FLUSH SCH ×2 (08:24→20:20)
[2018-03-08] MEDS: EZETIMIBE 10 MG TAB PO SCH (08:25)
[2018-03-08] MEDS: DOCUSATE SODIUM 50 MG/SENNA 8.6 MG TAB PO SCH ×2 (08:25→20:20)
[2018-03-08] MEDS: METOPROLOL SUCCINATE 25 MG EXTENDED RELEASE TAB PO SCH (08:25)
[2018-03-08] MEDS: FUROSEMIDE 40 MG TAB PO SCH (08:25)
[2018-03-08] MEDS: HYDROCHLOROTHIAZIDE 50 MG TAB PO SCH (08:25)
[2018-03-08] MEDS: ACETAMINOPHEN 325 MG TAB PO PRN (08:29)
[2018-03-08 12:00] VITALS: BP 125/64; PULSE 84; RESP 18; TEMP 97.2; O2SAT 96
[2018-03-08] MEDS ORDERED: PHARMACY INFORMATION XX ONE (12:00)
--- NOTE | 2018-03-08 12:21 | HHI.PR ---
Subjective Remarks This is a 77-year-old male with past medical history significant for aortic valve replacement on Coumadin, hypertension, hyperlipidemia, CAD and GERD, presented to the ER after a fall. The patient states that he was walking his dog, tripped over his cane and fell. The patient denies any pain in his lower extremities, however he states that he when he tried to get up then he could not. The patient otherwise denies any chest pain, shortness of breath, fevers, chills, dysuria, nausea, vomiting, diarrhea, dizziness. Denies hitting his head or losing consciousness. 03-06 (1) Trimalleolar fracture of left ankle Procedure: Left Ankle Trimaleolar Fracture Open reduction and internal fixation Patient seen sitting up in bed eating S/P Left ankle open reduction and internal fixation of trimalleolar fracture. 03/06/[address] Rm 03-07 Patient reports feeling well Reports anxiety requesting nicotine patch 03-08 CONTINUE TO RELOAD COUMADIN GOAL 2.5 DW RN AND PATIENT AND CM Objective Vitals Vital Signs Date Time Temp Pulse Resp B/P (MAP) Pulse Ox O2 Delivery O2 Flow Rate FiO2 03/08/18 10:16 18 03/08/18 08:00 98.1 85 18 178/80 (112) 93 03/08/18 05:25 18 03/08/18 04:00 97.6 78 19 155/72 (99) 95 03/08/18 00:00 98.1 80 20 138/61 (86) 93 03/07/18 21:10 21 03/07/18 20:00 98.1 91 18 164/70 (101) 94 03/07/18 19:42 16 03/07/18 16:00 98.1 89 18 128/75 (92) 95 03/07/18 14:00 19 I/O 03/07/18 03/07/18 03/07/18 03/08/18 03/08/18 03/08/18 07:00 15:00 23:00 07:00 15:00 23:00 Intake Total 730 ml 800 ml 600 ml Output Total 550 ml 4175 ml 575 ml Balance 180 ml -3375 ml 25 ml Intake Oral 480 ml 800 ml 600 ml IV Total 250 ml Output Urine Total 550 ml 4175 ml 575 ml # Bowel Movements 0 2 Result Diagram: 03/08/18 0526 03/06/18 0633 Other Results Laboratory Tests Test 03/05/18 22:27 03/06/18 06:14 03/06/18 06:33 03/06/18 14:00 Activated Partial Thromboplast Time 38.1 SEC 35.0 SEC Prothrombin Time 16.1 SEC 17.4 SEC Prothromb Time International Ratio 1.6 RATIO 1.7 RATIO White Blood Count 9.6 TH/MM3 13.5 TH/MM3 Red Blood Count 4.19 MIL/MM3 4.19 MIL/MM3 Hemoglobin 13.0 GM/DL 13.0 GM/DL Hematocrit 38.4 % 39.0 % Mean Corpuscular Volume 91.7 FL 93.0 FL Mean Corpuscular Hemoglobin 31.0 PG 31.0 PG Mean Corpuscular Hemoglobin Concent 33.8 % 33.3 % Red Cell Distribution Width 13.1 % 13.2 % Platelet Count 227 TH/MM3 238 TH/MM3 Mean Platelet Volume 8.6 FL 9.3 FL Neutrophils (%) (Auto) 70.6 % Lymphocytes (%) (Auto) 15.9 % Monocytes (%) (Auto) 11.1 % Eosinophils (%) (Auto) 2.0 % Basophils (%) (Auto) 0.4 % Neutrophils # (Auto) 6.8 TH/MM3 Lymphocytes # (Auto) 1.5 TH/MM3 Monocytes # (Auto) 1.1 TH/MM3 Eosinophils # (Auto) 0.2 TH/MM3 Basophils # (Auto) 0.0 TH/MM3 CBC Comment DIFF FINAL Differential Comment Blood Urea Nitrogen 15 MG/DL Creatinine 1.03 MG/DL Random Glucose 112 MG/DL Total Protein 6.6 GM/DL Albumin 3.3 GM/DL Calcium Level 8.9 MG/DL Alkaline Phosphatase 77 U/L Aspartate Amino Transf (AST/SGOT) 25 U/L Alanine Aminotransferase (ALT/SGPT) 21 U/L Total Bilirubin 0.6 MG/DL Sodium Level 140 MEQ/L Potassium Level 4.5 MEQ/L Chloride Level 104 MEQ/L Carbon Dioxide Level 28.2 MEQ/L Anion Gap 8 MEQ/L Estimat Glomerular Filtration Rate 70 ML/MIN Test 03/06/18 20:33 03/07/18 05:23 03/07/18 09:00 03/07/18 12:38 Activated Partial Thromboplast Time 51.9 SEC 100.1 SEC 62.0 SEC White Blood Count 17.7 TH/MM3 Red Blood Count 3.90 MIL/MM3 Hemoglobin 11.8 GM/DL Hematocrit 35.7 % Mean Corpuscular Volume 91.6 FL Mean Corpuscular Hemoglobin 30.3 PG Mean Corpuscular Hemoglobin Concent 33.1 % Red Cell Distribution Width 13.4 % Platelet Count 219 TH/MM3 Mean Platelet Volume 9.2 FL Neutrophils (%) (Auto) 84.0 % Lymphocytes (%) (Auto) 6.8 % Monocytes (%) (Auto) 9.0 % Eosinophils (%) (Auto) 0.0 % Basophils (%) (Auto) 0.2 % Neutrophils # (Auto) 14.8 TH/MM3 Lymphocytes # (Auto) 1.2 TH/MM3 Monocytes # (Auto) 1.6 TH/MM3 Eosinophils # (Auto) 0.0 TH/MM3 Basophils # (Auto) 0.0 TH/MM3 CBC Comment DIFF FINAL Differential Comment Prothrombin Time 14.6 SEC Prothromb Time International Ratio 1.4 RATIO Test 03/07/18 21:30 03/08/18 02:27 03/08/18 05:26 Activated Partial Thromboplast Time 50.2 SEC 63.7 SEC White Blood Count 14.7 TH/MM3 14.4 TH/MM3 Red Blood Count 3.81 MIL/MM3 4.00 MIL/MM3 Hemoglobin 11.8 GM/DL 12.3 GM/DL Hematocrit 34.7 % 36.8 % Mean Corpuscular Volume 91.1 FL 91.8 FL Mean Corpuscular Hemoglobin 30.9 PG 30.8 PG Mean Corpuscular Hemoglobin Concent 34.0 % 33.5 % Red Cell Distribution Width 13.4 % 13.6 % Platelet Count 236 TH/MM3 240 TH/MM3 Mean Platelet Volume 8.3 FL 9.0 FL Neutrophils (%) (Auto) 69.9 % Lymphocytes (%) (Auto) 16.6 % Monocytes (%) (Auto) 11.1 % Eosinophils (%) (Auto) 1.5 % Basophils (%) (Auto) 0.9 % Neutrophils # (Auto) 10.3 TH/MM3 Lymphocytes # (Auto) 2.4 TH/MM3 Monocytes # (Auto) 1.6 TH/MM3 Eosinophils # (Auto) 0.2 TH/MM3 Basophils # (Auto) 0.1 TH/MM3 CBC Comment AUTO DIFF Differential Comment AUTO DIFF CONFIRMED Platelet Estimate NORMAL Platelet Morphology Comment NORMAL Prothrombin Time 12.8 SEC Prothromb Time International Ratio 1.3 RATIO Imaging Last Impressions Ankle X-Ray 03/06/18 0000 Signed Impressions: Service Date/Time: Tuesday, March 06, 2018 08:38 - CONCLUSION: 1. Left ankle ORIF, as above. Brody Wright MD Chest X-Ray 03/05/18 1054 Signed Impressions: Service Date/Time: Monday, March 05, 2018 11:01 - CONCLUSION: No acute disease. Eriberto Ramon MD Tibia/Fibula X-Ray 03/05/18 1027 Signed Impressions: Service Date/Time: Monday, March 05, 2018 10:48 - CONCLUSION: Tibial and fibular fractures with soft tissue swelling and deformity at the ankle. Eriberto Ramon MD Knee X-Ray 03/05/18 1027 Signed Impressions: Service Date/Time: Monday, March 05, 2018 10:53 - CONCLUSION: Unremarkable limited examination of the left knee. Eriberto Ramon MD Foot X-Ray 03/05/18 1027 Signed Impressions: Service Date/Time: Monday, March 05, 2018 10:56 - CONCLUSION: Fracture dislocation at the ankle. Eriberto Ramon MD Objective Remarks GENERAL: Awake alert and oriented 3 talkative and cooperative SKIN: Warm and dry. HEAD: Atraumatic. Normocephalic. EYES: Pupils equal and round. No scleral icterus. No injection or drainage. Extraocular muscles intact ENT: No nasal bleeding or discharge. Mucous membranes pink and moist. Tongue is midline NECK: Trachea midline. No JVD. Supple CARDIOVASCULAR: IRRegular rate and rhythm. S1-S2 no S3 or S4 positive click RESPIRATORY: No accessory muscle use. Clear to auscultation. Breath sounds equal bilaterally. GASTROINTESTINAL: Abdomen soft, non-tender, nondistended. Hepatic and splenic margins not palpable. MUSCULOSKELETAL: Extremities without clubbing, cyanosis, or edema. No obvious deformities. NEUROLOGICAL: Awake and alert. No obvious cranial nerve deficits. Motor grossly within normal limits. Five out of 5 muscle strength in the arms and legs. Normal speech. Left lower extremity is dressed PSYCHIATRIC: Appropriate mood and affect; insight and judgment normal. Procedures Left ankle open reduction and internal fixation of trimalleolar fracture. with Dr. Rm Medications and IVs Current Medications Propofol (Diprivan 500 Mg/ 50 ml Inj) 25 mg ONCE ONCE IV ; Start 03/05/18 at 14 :00; Stop 03/05/18 at 14:01; Status DC EZETIMIBE (Zetia) 10 mg DAILY PO Last administered on 03/08/18 08:25; Start at 09:00 Furosemide (Lasix) 40 mg DAILY PO Last administered on 03/08/18 08:25; Start 03/06/18 at 09:00 Hydrochlorothiazide (Hydrodiuril) 50 mg DAILY PO Last administered on 08:25; Start 03/06/18 at 09:00 Metoprolol Succinate (Toprol Xl) 25 mg DAILY PO Last administered on 03/08/18 08:25; Start 03/06/18 at 09:00 Sodium Chloride (NS Flush) 2 ml UNSCH PRN IV FLUSH FLUSH AFTER USING IV ACCESS ; Start 03/05/18 at 15:45 Sodium Chloride (NS Flush) 2 ml BID IV FLUSH Last administered on 03/08/18 08: 24; Start 03/05/18 at 21:00 Acetaminophen (Tylenol) 650 mg Q4H PRN PO TEMP > 100.4 Last administered on at 08:29; Start 03/05/18 at 15:45 Ondansetron HCl (Zofran Inj) 4 mg Q6H PRN IVP NAUSEA OR VOMITING; Start at 15:45; Stop 03/05/18 at 15:51; Status DC Zolpidem Tartrate (Ambien) 5 mg HS PRN PO INSOMNIA; Start 03/05/18 at 15:45 Naloxone HCl (Narcan Inj) 0.4 mg UNSCH PRN IV PUSH SEE LABEL COMMENTS; Start at 15:45 Senna/Docusate Sodium (Kaylen-Colace) 1 tab BID PO Last administered on 08:25; Start 03/05/18 at 21:00 Magnesium Hydroxide (Milk Of Magnesia Liq) 30 ml Q12H PRN PO Mild constipation ; Start 03/05/18 at 15:45 Sennosides (Senokot) 17.2 mg Q12H PRN PO Moderate constipation; Start 03/05/18 at 15:45 Bisacodyl (Dulcolax Supp) 10 mg DAILY PRN RECTAL SEVERE CONSITIPATION; Start at 15:45 Lactulose (Lactulose Liq) 30 ml DAILY PRN PO SEVERE CONSITIPATION; Start at 15:45 Ondansetron HCl (Zofran Odt) 4 mg Q4H PRN PO NAUSEA OR VOMITING; Start at 15:45 Heparin Sodium/ Dextrose 250 ml @ 10 mls/hr TITRATE PRN IV Coagulation Management Last administered on 03/05/18at 16:29; Start 03/05/18 at 17:00; Stop 03/05/18 at 23:53; Status DC Morphine Sulfate (Morphine Inj) 2 mg Q3H PRN IV PUSH pain >5 if NPO; Start at 21:45; Stop 03/05/18 at 22:04; Status DC Acetaminophen/ Hydrocodone Bitart (Wiley 5-325 Mg) 1 tab Q4H PRN PO pain >5; Start 03/05/18 at 21:45; Stop 03/06/18 at 10:10; Status DC Acetaminophen/ Hydrocodone Bitart (Wiley 10-325 Mg) 1 tab Q4H PRN PO pain >10 Last administered on 03/05/18at 23:53; Start 03/05/18 at 21:45; Stop 03/06/18 at 10:10; Status DC Lactated Ringer's 1,000 ml @ 30 mls/hr Q24H PRN IV SEE LABEL COMMENTS; Start at 22:00; Stop 03/06/18 at 10:03; Status DC Sodium Chloride 500 ml @ 30 mls/hr [id number] PRN IV SEE LABEL COMMENTS; Start at 22:00; Stop 03/06/18 at 10:03; Status DC Metoprolol Tartrate (Lopressor) 25 mg AS400 ADMINISTRATOR PRN PO SEE LABEL COMMENTS; Start 03/05/18 at 22:00; Stop 03/08/18 at 21:59; Status Cancel Povidone Iodine (Betadine 5% Antisepsis Kit) 1 applic AS400 ADMINISTRATOR PRN EACH NARE SEE LABEL COMMENTS; Start 03/05/18 at 22:00; Stop 03/08/18 at 21:59 Chlorhexidine Gluconate (Chlorhexidine 2% Cloth) 3 pack AS400 ADMINISTRATOR PRN TOPICAL SEE LABEL COMMENTS; Start 03/05/18 at 22:00; Stop 03/08/18 at 21:59 Morphine Sulfate (Morphine Inj) 2 mg Q3H PRN IV PUSH pain >5 if NPO Last administered on 03/06/18at 04:40; Start 03/05/18 at 22:15 Heparin Sodium/ Dextrose 250 ml @ 10 mls/hr TITRATE PRN IV Coagulation Management; Start 03/05/18 at 23:45; Stop 03/06/18 at 02:00; Status DC Acetaminophen 100 ml @ As Directed STK-MED ONCE IV ; Start 03/06/18 at 05:58; Stop 03/06/18 at 05:59; Status DC Bupivacaine HCl/ Epinephrine Bitart (Sensorcaine-Epinephrine Pf 0.5% Inj) 20 ml STK-MED ONCE .ROUTE ; Start 03/06/18 at 07:20; Stop 03/06/18 at 07:21; Status DC Gentamicin Sulfate (Gentamicin Inj) 240 mg STK-MED ONCE .ROUTE Last administered on 03/06/18at 08:28; Start 03/06/18 at 07:21; Stop 03/06/18 at 07:22 ; Status DC Fentanyl Citrate (fentaNYL INJ) 250 mcg STK-MED ONCE .ROUTE ; Start 03/06/18 at 07:28; Stop 03/06/18 at 07:29; Status DC Cefazolin Sodium/ Dextrose 50 ml @ As Directed STK-MED ONCE .ROUTE Last administered on 03/06/18at 07:55; Start 03/06/18 at 07:44; Stop 03/06/18 at 07:45 ; Status DC Dextrose/Sodium Chloride 1,000 ml @ 100 mls/hr Q10H IV Last administered on at 04:01; Start 03/06/18 at 10:00 Sodium Chloride (NS Flush) 2 ml UNSCH PRN IV FLUSH FLUSH AFTER USING IV ACCESS ; Start 03/06/18 at 09:45; Stop 03/06/18 at 10:09; Status DC Miscellaneous Information (Misc Post-op Orders (for Pharmacy)) STAT ONCE XX ; Start 03/06/18 at 09:45; Stop 03/06/18 at 10:03; Status DC Patient Medication Teaching (Coumadin Booklet) 1 ONCE ONCE XX Last administered on 03/07/18at 06:29; Start 03/06/18 at 16:00; Stop 03/06/18 at 16:01 ; Status DC Cefazolin Sodium 1000 mg/Sodium Chloride 100 ml @ 200 mls/hr Q8H IV Last administered on 03/07/18at 05:43; Start 03/06/18 at 15:00; Stop 03/07/18 at 07:29 ; Status DC Miscellaneous Information ([facility]) UNSCH PRN XX SEE LABEL COMMENTS; Start 03/06/18 at 09:45 Miscellaneous Medication ([facility]) ONCE ONCE XX ; Start at 12:00; Stop 03/08/18 at 12:01; Status DC Oxycodone/ Acetaminophen (Percocet 5-325 Mg) 1 tab Q4H PRN PO PAIN LESS THAN 5 ON SCALE; Start 03/06/18 at 09:45 Diphenhydramine HCl (Benadryl) 25 mg Q6H PRN PO ITCHING; Start 03/06/18 at 09: 45 Morphine Sulfate (Morphine 1 Mg/ ml A AND P TECHNICIAN) 30 mg UNSCH IV Last administered on at 10:18; Start 03/06/18 at 09:45; Stop 03/08/18 at 12:00; Status DC A AND P TECHNICIAN Dosage Infused (Pha) 1 Q8HR .XX Last administered on 03/08/18at 05:25; Start 03/06/18 at 14:00; Stop 03/08/18 at 14:01 Morphine Sulfate (*morphine INJ PERIprocedure ONLY) 4 mg STK-MED ONCE .ROUTE Last administered on 03/06/18at 10:01; Start 03/06/18 at 10:01; Stop 03/06/18 at 10:02; Status DC Miscellaneous Information ([facility]) ALL NURSING DEPARTME... UNSCH PRN .XX SEE LABEL COMMENTS; Start 03/06/18 at 10:30; Stop 03/07/18 at 10: 29; Status DC Heparin Sodium/ Dextrose 250 ml @ 18 mls/hr TITRATE PRN IV Coagulation Management Last administered on 03/07/18at 22:06; Start 03/06/18 at 13:30 Warfarin Sodium (Coumadin) 5 mg DAILY@1600 PO Last administered on 03/07/18at 16 :06; Start 03/07/18 at 16:00; Stop 03/08/18 at 08:50; Status DC Pharmacy Profile Note 0 ml @ 0 mls/hr UNSCH OTHER ; Start 03/06/18 at 14:00; Status Cancel Pharmacy Profile Note 0 ml @ 0 mls/hr UNSCH OTHER ; Start 03/06/18 at 17:15 Patient Medication Teaching (Coumadin Booklet) 1 STK-MED ONCE .ROUTE ; Start at 06:27; Stop 03/07/18 at 06:28; Status DC Warfarin Sodium (Coumadin) 2.5 mg ONCE ONCE PO Last administered on 03/07/18at 17:21; Start 03/07/18 at 16:15; Stop 03/08/18 at 08:50; Status DC Warfarin Sodium (Coumadin) 1 mg ONCE@1600 ONCE PO ; Start 03/08/18 at 16:00; Stop 03/08/18 at 16:01 Warfarin Sodium (Coumadin) 7.5 mg DAILY@16 PO ; Start 03/08/18 at 16:00 A/P Problem List: (1) Ankle fracture, left ICD Code: S82.892A - Other fracture of left lower leg, initial encounter for closed fracture Status: Acute (2) History of mechanical aortic valve replacement ICD Code: Z95.2 - History of mechanical aortic valve replacement Status: Acute (3) Hypertension ICD Code: I10 - Hypertension Status: Acute (4) Hyperlipidemia ICD Code: E78.5 - Hyperlipidemia Status: Acute (5) Fall ICD Code: W19.XXXA - Unspecified fall, initial encounter Assessment and Plan This is a 77-year-old male with past medical history of CAD, hypertension, hyperlipidemia, AVR on chronic articulation with Coumadin, GERD who presents to [facility] after mechanical fall with subsequent left ankle fracture. Admit the patient to the orthopedic floor. Orthopedic surgery consulted. Left ankle open reduction and internal fixation of trimalleolar fracture. 03/06/[address] Rm Pain control with A AND P TECHNICIAN- pain management per Discussed with Dr. Rm, ok to resume Coumadin (pharmacy consulted) and resume IV heparin (with no bolus) for AVR, INR (03/07) 1.4 repeat in AM CBC in AM SCDs in unaffected leg. Continue metoprolol succinate for hypertension which is stable. Hold aspirin. Continue Lasix Continue Zetia for hyperlipidemia. Continue PPI for GERD. Reload Coumadin goal is 2.5 We will give 7.5 mg of Coumadin p.o. daily Discharge Planning Pending Coumadin level being therapeutic and patient more mobile Problem Qualifiers (1) Ankle fracture, left: Qualified Codes: S82.892A - Other fracture of left lower leg, initial encounter for closed fracture Derrick Prather DO March 08, 2018 12:21
[2018-03-08] MEDS: DEXT 5%-NACL 0.45% 1000 ML INJ 1,000 ML IV SCH ×2 (12:57→22:00)
--- NOTE | 2018-03-08 13:19 | PD.ORT.PN ---
Subjective Subjective Remarks Patient comfortable Objective Vitals Vital Signs Date Time Temp Pulse Resp B/P (MAP) Pulse Ox O2 Delivery O2 Flow Rate FiO2 03/08/18 12:00 97.2 84 18 125/64 (84) 96 03/08/18 10:16 18 03/08/18 08:00 98.1 85 18 178/80 (112) 93 03/08/18 05:25 18 03/08/18 04:00 97.6 78 19 155/72 (99) 95 03/08/18 00:00 98.1 80 20 138/61 (86) 93 03/07/18 21:10 21 03/07/18 20:00 98.1 91 18 164/70 (101) 94 03/07/18 19:42 16 03/07/18 16:00 98.1 89 18 128/75 (92) 95 03/07/18 14:00 19 I/O 03/07/18 03/07/18 03/07/18 03/08/18 03/08/18 03/08/18 07:00 15:00 23:00 07:00 15:00 23:00 Intake Total 730 ml 800 ml 600 ml Output Total 550 ml 4175 ml 575 ml Balance 180 ml -3375 ml 25 ml Intake Oral 480 ml 800 ml 600 ml IV Total 250 ml Output Urine Total 550 ml 4175 ml 575 ml # Bowel Movements 0 2 Result Diagram: 03/08/18 0526 03/06/18 0633 Other Results Laboratory Tests Test 03/08/18 02:27 Prothromb Time International Ratio 1.3 RATIO Prothrombin Time 12.8 SEC (9.8-11.6) Objective Remarks LLE: splint in place no drainage noted good movement of toes + sensation Assessment & Plan Assessment and Plan POD #2 Left Ankle Trimalleolar Fracture ORIF Pain management Physical therapy - Non WB D/C planning - anticipating home vs SNF Monitor Jimenez Rm MD March 08, 2018 13:19
[2018-03-08] MEDS: HEPARIN-D5W 25,000 U/250 ML 250 ML IV PRN (15:59)
[2018-03-08 16:00] VITALS: BP 166/76; PULSE 86; RESP 18; TEMP 98.1; O2SAT 93
[2018-03-08] MEDS ORDERED: WARFARIN SOD 1 MG TAB PO ONE (16:00)
[2018-03-08] MEDS: WARFARIN SOD 7.5 MG TAB PO SCH (16:06)
[2018-03-08 20:00] VITALS: BP 130/70; PULSE 103; RESP 18; TEMP 99.2; O2SAT 94
[2018-03-09] VITALS (8 sets, daily range): BP systolic 110–145; BP diastolic 65–88; PULSE 100–109; RESP 18–20; TEMP 97.6–99.4; O2SAT 86–95
[2018-03-09] MEDS: HEPARIN-D5W 25,000 U/250 ML 250 ML IV PRN ×2 (05:06→21:03)
[2018-03-09 06:20] LABS: AUTOMATED NEUTROPHIL # 9.4 TH/MM3 (1.8-7.7); BASOPHIL # 0.1 TH/MM3 (0-0.2); BASOPHIL % 0.5 % (0.0-2.0); EOSINOPHIL # 0.4 TH/MM3 (0-0.4); EOSINOPHIL % 2.6 % (0.0-4.0); HEMATOCRIT 37.7 % (39.0-51.0); HEMOGLOBIN 12.8 GM/DL (13.0-17.0); LYMPH % 16.2 % (9.0-44.0); LYMPHOCYTE # 2.2 TH/MM3 (1.0-4.8); MEAN CELL VOLUME 91.2 FL (80.0-100.0); MEAN PLATELET VOLUME 8.8 FL (7.0-11.0); MONO % 12.3 % (0.0-8.0); MONOCYTE # 1.7 TH/MM3 (0-0.9); NEUT % 68.4 % (16.0-70.0); PLATELET COUNT 251 TH/MM3 (150-450); RED BLOOD COUNT 4.14 MIL/MM3 (4.50-5.90); RED CELL DISTRIBUTION WIDTH 13.7 % (11.6-17.2); WHITE BLOOD COUNT 13.7 TH/MM3 (4.0-11.0)
[2018-03-09 06:37] LABS: INTERNATIONAL NORMALIZED RATIO 1.5 RATIO; PROTHROMBIN TIME - PATIENT 14.9 SEC (9.8-11.6)
[2018-03-09 07:08] LABS: ALBUMIN 3.3 GM/DL (3.4-5.0); ALKALINE PHOSPHATASE 75 U/L (45-117); ALT (GPT) 20 U/L (12-78); AST (GOT) 25 U/L (15-37); BICARBONATE 26.4 MEQ/L (21.0-32.0); BLOOD UREA NITROGEN 24 MG/DL (7-18); CALCIUM 9.1 MG/DL (8.5-10.1); CHLORIDE 95 MEQ/L (98-107); CREATININE 1.07 MG/DL (0.60-1.30); FREE T4 1.29 NG/DL (0.76-1.46); GLOMERULAR FILTRATION RATE 67 ML/MIN (>89); GLUCOSE,RANDOM 128 MG/DL (74-106); PHOSPHORUS 3.7 MG/DL (2.5-4.9); SODIUM (NA) 136 MEQ/L (136-145); TOTAL BILIRUBIN ADULT 0.7 MG/DL (0.2-1.0); TOTAL PROTEIN 6.9 GM/DL (6.4-8.2)
[2018-03-09] MEDS: DEXT 5%-NACL 0.45% 1000 ML INJ 1,000 ML IV SCH ×2 (08:00→17:56)
[2018-03-09] MEDS: EZETIMIBE 10 MG TAB PO SCH (09:00)
[2018-03-09] MEDS: DOCUSATE SODIUM 50 MG/SENNA 8.6 MG TAB PO SCH ×2 (09:13→20:42)
[2018-03-09] MEDS: SODIUM CHLORIDE 0.9% FLUSH 10 ML FLUSH IV FLUSH SCH ×2 (09:13→20:42)
[2018-03-09] MEDS: HYDROCHLOROTHIAZIDE 50 MG TAB PO SCH (09:13)
[2018-03-09] MEDS: METOPROLOL SUCCINATE 25 MG EXTENDED RELEASE TAB PO SCH (09:14)
[2018-03-09] MEDS: FUROSEMIDE 40 MG TAB PO SCH (09:14)
--- NOTE | 2018-03-09 12:12 | HHI.PR ---
Subjective Remarks Follow up for fall with left ankle trimalleolar fracture, subtherapeutic INR with mechanical AVR. The patient reports ankle pain fairly well controlled, not requiring pain medications. RN reports patient's O2 sat into upper 80s this morning, requiring 6L simple mask. The patient denies any cough, chest pain, wheezing, or shortness of breath. Denies any other medical complaints at this time. Objective Vitals Vital Signs Date Time Temp Pulse Resp B/P (MAP) Pulse Ox O2 Delivery O2 Flow Rate FiO2 03/09/18 11:50 92 Simple Mask 6.00 03/09/18 08:00 98.4 101 19 125/73 (90) 90 03/09/18 01:20 95 03/09/18 00:00 99.4 100 18 110/69 (83) 91 03/08/18 20:00 99.2 103 18 130/70 (90) 94 03/08/18 16:00 98.1 86 18 166/76 (106) 93 03/08/18 14:00 18 I/O 03/08/18 03/08/18 03/08/18 03/09/18 03/09/18 03/09/18 07:00 15:00 23:00 07:00 15:00 23:00 Intake Total 600 ml 1050 ml 747 ml Output Total 575 ml 800 ml 300 ml Balance 25 ml 250 ml 447 ml Intake Oral 600 ml 1050 ml 450 ml IV Total 297 ml Output Urine Total 575 ml 800 ml 300 ml # Voids 4 # Bowel Movements 3 Result Diagram: 03/09/18 0540 03/09/18 0540 Imaging Last Impressions Chest X-Ray 03/09/18 0000 Signed Impressions: CONCLUSION: No acute pulmonary infiltrates. No significant change. Ankle X-Ray 03/06/18 0000 Signed Impressions: Service Date/Time: Tuesday, March 06, 2018 08:38 - CONCLUSION: 1. Left ankle ORIF, as above. Brody Wright MD Tibia/Fibula X-Ray 03/05/18 1027 Signed Impressions: Service Date/Time: Monday, March 05, 2018 10:48 - CONCLUSION: Tibial and fibular fractures with soft tissue swelling and deformity at the ankle. Eriberto Ramon MD Knee X-Ray 03/05/18 1027 Signed Impressions: Service Date/Time: Monday, March 05, 2018 10:53 - CONCLUSION: Unremarkable limited examination of the left knee. Eriberto Ramon MD Foot X-Ray 03/05/18 1027 Signed Impressions: Service Date/Time: Monday, March 05, 2018 10:56 - CONCLUSION: Fracture dislocation at the ankle. Eriberto Ramon MD Objective Remarks GENERAL: Well-nourished, well-developed pleasant elderly male patient in [facility]. SKIN: Warm and dry. No rash. HEENT: Normocephalic. Atraumatic. Pupils equal and round. Mucous membranes pink and moist. NECK: Supple. Trachea midline. CARDIOVASCULAR: Regular rate and rhythm. Mechanical murmur. RESPIRATORY: No accessory muscle use. Breath sounds slightly diminished at bilateral bases, otherwise clear. Breath sounds equal bilaterally. GASTROINTESTINAL: Abdomen soft, non-tender, nondistended. Normoactive bowel sounds x4. MUSCULOSKELETAL: LLE splint in place, distal sensation intact. NEUROLOGICAL: Awake and alert. No obvious cranial nerve deficits. Motor grossly within normal limits. Moving all extremities spontaneously. Normal speech. PSYCHIATRIC: Appropriate mood and affect; insight and judgment normal. Procedures 03/06/18 - Left ankle open reduction and internal fixation of trimalleolar fracture by Dr. Rm Medications and IVs Current Medications Medications (Trade) Dose Ordered Sig/Betrha Route Start Time Stop Time Status Last Admin (Zetia) 10 mg DAILY PO 03/06/18 09:00 03/09/18 09:00 (Lasix) 40 mg DAILY PO 03/06/18 09:00 03/09/18 09:14 (Hydrodiuril) 50 mg DAILY PO 03/06/18 09:00 03/09/18 09:13 (Toprol Xl) 25 mg DAILY PO 03/06/18 09:00 03/09/18 09:14 (NS Flush) 2 ml UNSCH PRN IV FLUSH 03/05/18 15:45 (NS Flush) 2 ml BID IV FLUSH 03/05/18 21:00 03/09/18 09:13 (Tylenol) 650 mg Q4H PRN PO 03/05/18 15:45 03/08/18 08:29 (Ambien) 5 mg HS PRN PO 03/05/18 15:45 (Narcan Inj) 0.4 mg UNSCH PRN IV PUSH 03/05/18 15:45 (Kaylen-Colace) 1 tab BID PO 03/05/18 21:00 03/09/18 09:13 (Milk Of Magnesia Liq) 30 ml Q12H PRN PO 03/05/18 15:45 (Senokot) 17.2 mg Q12H PRN PO 03/05/18 15:45 (Dulcolax Supp) 10 mg DAILY PRN RECTAL 03/05/18 15:45 (Lactulose Liq) 30 ml DAILY PRN PO 03/05/18 15:45 (Zofran Odt) 4 mg Q4H PRN PO 03/05/18 15:45 (Morphine Inj) 2 mg Q3H PRN IV PUSH 03/05/18 22:15 03/06/18 04:40 Dextrose/Sodium Chloride 1,000 ml @ 100 mls/hr Q10H IV 03/06/18 10:00 03/08/18 12:57 [place] [place] UNSCH PRN XX 03/06/18 09:45 (Percocet 5-325 Mg) 1 tab Q4H PRN PO 03/06/18 09:45 (Benadryl) 25 mg Q6H PRN PO 03/06/18 09:45 Heparin Sodium/ Dextrose 250 ml @ 18 mls/hr TITRATE PRN IV 03/06/18 13:30 03/09/18 05:06 Pharmacy Profile Note 0 ml @ 0 mls/hr UNSCH OTHER 03/06/18 17:15 (Coumadin) 7.5 mg DAILY@16 PO 03/08/18 16:00 03/08/18 16:06 A/P Problem List: (1) Ankle fracture, left ICD Code: S82.892A - Other fracture of left lower leg, initial encounter for closed fracture Status: Acute (2) History of mechanical aortic valve replacement ICD Code: Z95.2 - History of mechanical aortic valve replacement Status: Acute (3) Hypertension ICD Code: I10 - Hypertension Status: Acute (4) Hyperlipidemia ICD Code: E78.5 - Hyperlipidemia Status: Acute (5) Fall ICD Code: W19.XXXA - Unspecified fall, initial encounter Assessment and Plan 77-year-old male with past medical history of CAD, hypertension, hyperlipidemia , mechanical AVR anticoagulated with Coumadin, GERD who presents to [place] after mechanical fall with subsequent left ankle fracture. Left Ankle Trimalleolar Fracture: s/p mechanical fall. -Left tib-fib and ankle x-rays reviewed, shows tibial and fibular fractures with soft tissue swelling and deformity at the ankle with dislocation -Orthopedics consulted, s/p ORIF on 03/06/[address] Rm -Continue pain control with Percocet as needed -Continue physical therapy, LLE nonweightbearing per ortho [facility]R with subtherapeutic INR: INR 2.0 upon arrival -Coumadin initially held for surgery, now restarted -Continue bridging with IV heparin drip -Pharmacy consulted to assist with Coumadin dosing -Monitor daily INR, currently 1.5, goal 2.5-3.5 Hypoxia: O2 sat into the upper 80s on 03/09/18, requiring simple mask with 6 L nasal cannula. Does not appear to be significantly fluid overloaded. -Repeat stat chest x-ray reviewed, with no acute findings -Check ABG -Check CT-PA to rule out PE -Duo nebs as needed -Incentive spirometry -O2 as needed, may need home oxygen walk test prior to discharge if unable to wean Hypertension/Hyperlipidemia: BP fairly well-controlled -Continue patient's HCTZ 50 mg, Toprol-XL 25 mg daily, Lasix 40 mg, Zetia 10mg daily -Monitor BP, adjust antihypertensives as needed GERD: Chronic -Continue PPI DVT prophylaxis: On Coumadin, bridging with IV heparin drip Discharge Planning Discharge pending CT-PA, wean off oxygen, and therapeutic INR 2.5 to 3.5. Problem Qualifiers (1) Ankle fracture, left: Qualified Codes: S82.892A - Other fracture of left lower leg, initial encounter for closed fracture Marissa Granda PA-C March 09, 2018 12:12
--- NOTE | 2018-03-09 12:35 | RADRPT ---
EXAM DATE: 03/09/2018 12:30 PM EDT AGE/SEX: 77 years / Male INDICATIONS: SHORT OF BREATH. CLINICAL DATA: This is the patient's subsequent encounter. Patient reports that signs and symptoms h ave been present for 4 - 6 days and indicates a pain score of 0/10. MEDICAL/SURGICAL HISTORY: Hypertension. Cardiovascular disease. . VALVE REPLACEMENT. COMPARISON: [facility], CHEST SINGLE AP, 11/19/2015. . FINDINGS: A single AP view of the chest demonstrates the lungs to be symmetrically aerated without e vidence of mass, infiltrate or effusion. The cardiomediastinal contours are unremarkable. Osseous s tructures are intact. CONCLUSION: No acute pulmonary infiltrates. No significant change. Electronically signed by: Fredy Mullen MD 03/09/2018 12:34 PM EDT
[2018-03-09] MEDS ORDERED: POTASSIUM CHLORIDE 20 MEQ CONTROLLED RELEASE TAB PO ONE (13:30)
[2018-03-09] MEDS ORDERED: RESP: ALBUTEROL 2.5 MG/IPRATROPIUM 0.5 MG NEB (PRN) NEB (14:30)
[2018-03-09] MEDS: WARFARIN SOD 7.5 MG TAB PO SCH (15:18)
[2018-03-09 16:05] LABS: HEMOGLOBIN A1C 5.9 % (4.3-6.0)
--- NOTE | 2018-03-09 17:40 | RADRPT ---
EXAM DATE: 03/09/2018 5:34 PM EDT AGE/SEX: 77 years / Male INDICATIONS: Chest pain. CLINICAL DATA: This is the patient's initial encounter. Patient reports that signs and symptoms have been present for 1 day and indicates a pain score of 4/10. MEDICAL/SURGICAL HISTORY: Cardiovascular disease. Hypertension. None. RADIATION DOSE: 22.89 CTDI (mGy) COMPARISON: No prior [facility] exams available for comparison. No external comparison. TECHNIQUE: Volumetric scanning was performed using a multi-row detector CT scanner during bolus infu daniel of 75 ml Omnipaque 350 (iohexol) nonionic water-soluble contrast as a single exam dose. The florentino a was post processed with a variety of visualization algorithms including full volume maximum intensi ty projection and sliding thin slab reformation. Using automated exposure control and adjustment of the mA and/or kV according to patient size, radiation dose was kept as low as reasonably achievable t o obtain optimal diagnostic quality images. FINDINGS: Pulmonary Arteries: No definite filling defects are demonstrated. This is somewhat limited due to mo tion artifact throughout the imaged. Lung: No infiltrates seen. There is chronic interstitial changes bilaterally. Effusion: None. Mediastinum: No evidence of mediastinal or hilar adenopathy. Other: The axilla is unremarkable. CONCLUSION: 1. No definite PE is demonstrated. 2. Chronic interstitial changes are seen bilaterally. No acute pulmonary infiltrates. Electronically signed by: Fredy Mullen MD 03/09/2018 5:39 PM EDT
[2018-03-09] MEDS ORDERED: IOHEXOL 350 MG/ML 10 ML VIAL (for RAD DIAG) IVCONTRAST ONE (17:41)
--- NOTE | 2018-03-09 18:36 | PD.ORT.PN ---
Subjective Subjective Remarks Patient comfortable Objective Vitals Vital Signs Date Time Temp Pulse Resp B/P (MAP) Pulse Ox O2 Delivery O2 Flow Rate FiO2 03/09/18 15:57 97.6 109 19 145/88 (107) 86 03/09/18 12:00 98.4 101 18 136/65 (88) 90 03/09/18 11:50 92 Simple Mask 6.00 03/09/18 08:00 98.4 101 19 125/73 (90) 90 03/09/18 01:20 95 03/09/18 00:00 99.4 100 18 110/69 (83) 91 03/08/18 20:00 99.2 103 18 130/70 (90) 94 I/O 03/08/18 03/08/18 03/08/18 03/09/18 03/09/18 03/09/18 07:00 15:00 23:00 07:00 15:00 23:00 Intake Total 600 ml 1050 ml 747 ml 800 ml Output Total 575 ml 800 ml 300 ml 175 ml Balance 25 ml 250 ml 447 ml 625 ml Intake Oral 600 ml 1050 ml 450 ml 800 ml IV Total 297 ml Output Urine Total 575 ml 800 ml 300 ml 175 ml # Voids 4 3 # Bowel Movements 3 3 Result Diagram: 03/09/18 0540 03/09/18 0540 Other Results Laboratory Tests Test 03/09/18 05:40 Prothromb Time International Ratio 1.5 RATIO Prothrombin Time 14.9 SEC (9.8-11.6) Imaging Last 24 hours Impressions Chest X-Ray 03/09/18 0000 Signed Impressions: CONCLUSION: No acute pulmonary infiltrates. No significant change. CT Angiography 03/09/18 0000 Signed Impressions: CONCLUSION: Objective Remarks LLE: splint in place no drainage noted good movement of toes + sensation Assessment & Plan Assessment and Plan POD #3 Left Ankle Trimalleolar Fracture ORIF Pain management Physical therapy - Non WB D/C planning - d/c to SNF Monitor Jimenez Rm MD March 09, 2018 18:36
[2018-03-10] VITALS (7 sets, daily range): BP systolic 113–164; BP diastolic 53–88; PULSE 80–106; RESP 18–20; TEMP 97.4–98.8; O2SAT 91–96
[2018-03-10] MEDS: DEXT 5%-NACL 0.45% 1000 ML INJ 1,000 ML IV SCH ×2 (04:00→14:00)
[2018-03-10 07:41] LABS: PROTHROMBIN TIME - PATIENT 20.1 SEC (9.8-11.6)
[2018-03-10] MEDS: HYDROCHLOROTHIAZIDE 50 MG TAB PO SCH (08:31)
[2018-03-10] MEDS: DOCUSATE SODIUM 50 MG/SENNA 8.6 MG TAB PO SCH ×2 (08:31→19:41)
[2018-03-10] MEDS: FUROSEMIDE 40 MG TAB PO SCH (08:31)
[2018-03-10] MEDS: METOPROLOL SUCCINATE 25 MG EXTENDED RELEASE TAB PO SCH (08:31)
[2018-03-10] MEDS: EZETIMIBE 10 MG TAB PO SCH (08:31)
[2018-03-10] MEDS: SODIUM CHLORIDE 0.9% FLUSH 10 ML FLUSH IV FLUSH SCH ×2 (09:00→19:41)
--- NOTE | 2018-03-10 12:12 | HHI.PR ---
Subjective Remarks Follow-up for fall with left ankle trimalleolar fracture, subtherapeutic INR with mechanical AVR, and hypoxia. Patient reports feeling well today. Denies any pain of the ankle. He denies any cough, wheezing, shortness of breath. O2 sat improving, now on nasal cannula. He believes his oxygen levels are dropping because he feels congested. He does not wear oxygen at home. He denies any other medical complaints at this time. Objective Vitals Vital Signs Date Time Temp Pulse Resp B/P (MAP) Pulse Ox O2 Delivery O2 Flow Rate FiO2 03/10/18 11:52 97.7 106 18 155/88 (110) 93 03/10/18 08:14 98.0 103 19 164/74 (104) 91 03/10/18 07:42 94 Nasal Cannula 4.00 03/10/18 04:00 98.4 96 18 155/78 (103) 92 03/10/18 00:00 98.8 95 20 130/78 (95) 93 03/09/18 23:33 93 Nasal Cannula 5.00 03/09/18 20:47 Nasal Cannula 4.00 03/09/18 20:00 98.0 101 20 129/72 (91) 92 03/09/18 19:40 92 Nasal Cannula 4.00 03/09/18 15:57 97.6 109 19 145/88 (107) 86 I/O 03/09/18 03/09/18 03/09/18 03/10/18 03/10/18 03/10/18 06:59 14:59 22:59 06:59 14:59 22:59 Intake Total 747 ml 800 ml 360 ml Output Total 300 ml 175 ml 650 ml Balance 447 ml 625 ml -290 ml Intake Oral 450 ml 800 ml 360 ml IV Total 297 ml Output Urine Total 300 ml 175 ml 650 ml # Voids 3 # Bowel Movements 3 0 Result Diagram: 03/09/18 0540 03/09/18 0540 Imaging Last Impressions Chest X-Ray 03/09/18 0000 Signed Impressions: CONCLUSION: No acute pulmonary infiltrates. No significant change. CT Angiography 03/09/18 0000 Signed Impressions: CONCLUSION: Ankle X-Ray 03/06/18 0000 Signed Impressions: Service Date/Time: Tuesday, March 06, 2018 08:38 - CONCLUSION: 1. Left ankle ORIF, as above. Brody Bozorgmanesh, MD Tibia/Fibula X-Ray 03/05/18 1027 Signed Impressions: Service Date/Time: Monday, March 05, 2018 10:48 - CONCLUSION: Tibial and fibular fractures with soft tissue swelling and deformity at the ankle. Eriberto Ramon MD Knee X-Ray 03/05/18 102 Signed Impressions: Service Date/Time: Monday, March 05, 2018 10:53 - CONCLUSION: Unremarkable limited examination of the left knee. Eriberto Ramon MD Foot X-Ray 03/05/181026 Signed Impressions: Service Date/Time: Monday, March 05, 2018 10:56 - CONCLUSION: Fracture dislocation at the ankle. Eriberto Ramon MD Objective Remarks GENERAL: Well-nourished, well-developed pleasant elderly male patient in [facility]. SKIN: Warm and dry. No rash. HEENT: Normocephalic. Atraumatic. Pupils equal and round. Mucous membranes pink and moist. NECK: Supple. Trachea midline. CARDIOVASCULAR: Regular rate and rhythm. Mechanical murmur. RESPIRATORY: No accessory muscle use. Breath sounds slightly diminished at bilateral bases, otherwise clear. Breath sounds equal bilaterally. GASTROINTESTINAL: Abdomen soft, non-tender, nondistended. Normoactive bowel sounds x4. MUSCULOSKELETAL: LLE splint in place, distal sensation intact. NEUROLOGICAL: Awake and alert. No obvious cranial nerve deficits. Motor grossly within normal limits. Moving all extremities spontaneously. Normal speech. PSYCHIATRIC: Appropriate mood and affect; insight and judgment normal. Procedures 03/06/18 - Left ankle open reduction and internal fixation of trimalleolar fracture by Dr. Rm Medications and IVs Current Medications Medications (Trade) Dose Ordered Sig/Bertha Route Start Time Stop Time Status Last Admin (Zetia) 10 mg DAILY PO 03/06/18 09:00 03/10/18 08:31 (Lasix) 40 mg DAILY PO 03/06/18 09:00 03/10/18 08:31 (Hydrodiuril) 50 mg DAILY PO 03/06/18 09:00 03/10/18 08:31 (Toprol Xl) 25 mg DAILY PO 03/06/18 09:00 03/10/18 08:31 (NS Flush) 2 ml UNSCH PRN IV FLUSH 03/05/18 15:45 (NS Flush) 2 ml BID IV FLUSH 03/05/18 21:00 03/09/18 09:13 (Tylenol) 650 mg Q4H PRN PO 03/05/18 15:45 03/08/18 08:29 (Ambien) 5 mg HS PRN PO 03/05/18 15:45 (Narcan Inj) 0.4 mg UNSCH PRN IV PUSH 03/05/18 15:45 (Kaylen-Colace) 1 tab BID PO 03/05/18 21:00 03/10/18 08:31 (Milk Of Magnesia Liq) 30 ml Q12H PRN PO 03/05/18 15:45 (Senokot) 17.2 mg Q12H PRN PO 03/05/18 15:45 (Dulcolax Supp) 10 mg DAILY PRN RECTAL 03/05/18 15:45 (Lactulose Liq) 30 ml DAILY PRN PO 03/05/18 15:45 (Zofran Odt) 4 mg Q4H PRN PO 03/05/18 15:45 (Morphine Inj) 2 mg Q3H PRN IV PUSH 03/05/18 22:15 03/06/18 04:40 Dextrose/Sodium Chloride 1,000 ml @ 100 mls/hr Q10H IV 03/06/18 10:00 03/08/18 12:57 [place] [place] UNSCH PRN XX 03/06/18 09:45 (Percocet 5-325 Mg) 1 tab Q4H PRN PO 03/06/18 09:45 (Benadryl) 25 mg Q6H PRN PO 03/06/18 09:45 Heparin Sodium/ Dextrose 250 ml @ 18 mls/hr TITRATE PRN IV 03/06/18 13:30 03/09/18 21:03 Pharmacy Profile Note 0 ml @ 0 mls/hr UNSCH OTHER 03/06/18 17:15 (Duoneb Neb) 1 ampule Q4HR NEB PRN NEB 03/09/18 14:30 (Coumadin) 6 mg DAILY@1600 PO 03/10/18 16:00 ([place] [facility] [place]) 2 spray Q4H PRN EACH NARE 03/10/18 15:00 A/P Problem List: (1) Ankle fracture, left ICD Code: S82.892A - Other fracture of left lower leg, initial encounter for closed fracture Status: Acute (2) History of mechanical aortic valve replacement ICD Code: Z95.2 - History of mechanical aortic valve replacement Status: Acute (3) Hypertension ICD Code: I10 - Hypertension Status: Acute (4) Hyperlipidemia ICD Code: E78.5 - Hyperlipidemia Status: Acute (5) Fall ICD Code: W19.XXXA - Unspecified fall, initial encounter Assessment and Plan 77-year-old male with past medical history of CAD, hypertension, hyperlipidemia , mechanical AVR anticoagulated with Coumadin, GERD who presents to [place] after mechanical fall with subsequent left ankle fracture. Left Ankle Trimalleolar Fracture: s/p mechanical fall. -Left tib-fib and ankle x-rays reviewed, shows tibial and fibular fractures with soft tissue swelling and deformity at the ankle with dislocation -Orthopedics consulted, s/p ORIF on 03/06/[address] Rm -Continue pain control with Percocet as needed -Continue physical therapy, LLE nonweightbearing per ortho -Plan for discharge to [facility] Mechanical AVR with subtherapeutic INR: INR 2.0 upon arrival -Coumadin initially held for surgery, now restarted -Continue bridging with IV heparin drip -Pharmacy consulted to assist with Coumadin dosing -Monitor daily INR, currently 2.0, goal 2.5-3.5 Hypoxia: O2 sat into the upper 80s on 03/09/18, requiring simple mask with 6 L nasal cannula. Does not appear to be significantly fluid overloaded. -Repeat stat chest x-ray reviewed, with no acute findings -ABG reviewed, grossly unremarkable -CT-PA reviewed, no PE, shows chronic interstitial changes, no acute infiltrates -Duo nebs as needed -Incentive spirometry -O2 as needed -discussed with case management, does not need walk test prior to discharge to SNF -Added saline nasal spray prn for congestion Hypertension/Hyperlipidemia: BP fairly well-controlled -Continue patient's HCTZ 50 mg, Toprol-XL 25 mg daily, Lasix 40 mg, Zetia 10mg daily -Monitor BP, adjust antihypertensives as needed GERD: Chronic -Continue PPI DVT prophylaxis: On Coumadin, bridging with IV heparin drip Discharge Planning Discharge pending therapeutic INR 2.5 to 3.5. Plan to discharge to [facility] when INR therapeutic. Problem Qualifiers (1) Ankle fracture, left: Qualified Codes: S82.892A - Other fracture of left lower leg, initial encounter for closed fracture Marissa Granda PA-C March 10, 2018 12:12 pm
[2018-03-10] MEDS ORDERED: SODIUM CHLORIDE 0.65% NASAL SPRAY 45 ML BTL EACH NARE ONE (13:45)
[2018-03-10] MEDS: HEPARIN-D5W 25,000 U/250 ML 250 ML IV PRN (13:45)
[2018-03-10] MEDS: WARFARIN SOD 6 MG TAB PO SCH (16:00)
[2018-03-10] MEDS: SODIUM CHLORIDE 0.65% NASAL SPRAY 45 ML BTL EACH NARE PRN (16:12)
[2018-03-11] VITALS (10 sets, daily range): BP systolic 123–148; BP diastolic 63–82; PULSE 81–95; RESP 17–20; TEMP 97.8–98.4; O2SAT 87–94
[2018-03-11] MEDS: HEPARIN-D5W 25,000 U/250 ML 250 ML IV PRN ×2 (06:05→20:33)
[2018-03-11 06:31] LABS: AUTOMATED NEUTROPHIL # 9.6 TH/MM3 (1.8-7.7); BASOPHIL # 0.1 TH/MM3 (0-0.2); BASOPHIL % 0.8 % (0.0-2.0); EOSINOPHIL # 0.4 TH/MM3 (0-0.4); HEMATOCRIT 37.3 % (39.0-51.0); HEMOGLOBIN 12.6 GM/DL (13.0-17.0); LYMPH % 14.7 % (9.0-44.0); MEAN CELL VOLUME 91.7 FL (80.0-100.0); MEAN CORPUSCULAR HEMOGLOBIN 31.1 PG (27.0-34.0); MEAN CORPUSCULAR HGB CONC 33.9 % (32.0-36.0); MEAN PLATELET VOLUME 8.9 FL (7.0-11.0); MONOCYTE # 1.5 TH/MM3 (0-0.9); NEUT % 70.5 % (16.0-70.0); PLATELET COUNT 272 TH/MM3 (150-450); RED BLOOD COUNT 4.07 MIL/MM3 (4.50-5.90); RED CELL DISTRIBUTION WIDTH 13.2 % (11.6-17.2); WHITE BLOOD COUNT 13.6 TH/MM3 (4.0-11.0)
[2018-03-11 06:55] LABS: INTERNATIONAL NORMALIZED RATIO 2.1 RATIO; PROTHROMBIN TIME - PATIENT 21.6 SEC (9.8-11.6)
[2018-03-11 07:00] LABS: BICARBONATE 25.7 MEQ/L (21.0-32.0); CALCIUM 9.3 MG/DL (8.5-10.1); CREATININE 1.19 MG/DL (0.60-1.30)
[2018-03-11] MEDS: METOPROLOL SUCCINATE 25 MG EXTENDED RELEASE TAB PO SCH (08:24)
[2018-03-11] MEDS: FUROSEMIDE 40 MG TAB PO SCH (08:25)
[2018-03-11] MEDS: SODIUM CHLORIDE 0.9% FLUSH 10 ML FLUSH IV FLUSH SCH ×2 (08:25→20:32)
[2018-03-11] MEDS: DOCUSATE SODIUM 50 MG/SENNA 8.6 MG TAB PO SCH ×2 (08:26→20:31)
[2018-03-11] MEDS: EZETIMIBE 10 MG TAB PO SCH (08:26)
[2018-03-11] MEDS: HYDROCHLOROTHIAZIDE 50 MG TAB PO SCH (08:26)
[2018-03-11] MEDS: DEXT 5%-NACL 0.45% 1000 ML INJ 1,000 ML IV SCH ×3 (08:30→20:00)
[2018-03-11] MEDS ORDERED: RESP: ALBUTEROL 2.5 MG/IPRATROPIUM 0.5 MG NEB (PRN) NEB (11:45)
--- NOTE | 2018-03-11 12:07 | HHI.PR ---
Subjective Remarks This is a 77-year-old male with past medical history significant for aortic valve replacement on Coumadin, hypertension, hyperlipidemia, CAD and GERD, presented to the ER after a fall. The patient states that he was walking his dog, tripped over his cane and fell. The patient denies any pain in his lower extremities, however he states that he when he tried to get up then he could not. The patient otherwise denies any chest pain, shortness of breath, fevers, chills, dysuria, nausea, vomiting, diarrhea, dizziness. Denies hitting his head or losing consciousness. 03-06 (1) Trimalleolar fracture of left ankle Procedure: Left Ankle Trimaleolar Fracture Open reduction and internal fixation Patient seen sitting up in bed eating S/P Left ankle open reduction and internal fixation of trimalleolar fracture. 03/06/[address] Rm 03-07 Patient reports feeling well Reports anxiety requesting nicotine patch 03-08 CONTINUE TO RELOAD COUMADIN GOAL 2.5 ELISHA RN AND PATIENT AND CM 03-09 Follow up for fall with left ankle trimalleolar fracture, subtherapeutic INR with mechanical AVR. The patient reports ankle pain fairly well controlled, not requiring pain medications. RN reports patient's O2 sat into upper 80s this morning, requiring 6L simple mask. The patient denies any cough, chest pain, wheezing, or shortness of breath. Denies any other medical complaints at this time. 03-10 Follow-up for fall with left ankle trimalleolar fracture, subtherapeutic INR with mechanical AVR, and hypoxia. Patient reports feeling well today. Denies any pain of the ankle. He denies any cough, wheezing, shortness of breath. O2 sat improving, now on nasal cannula. He believes his oxygen levels are dropping because he feels congested. He does not wear oxygen at home. He denies any other medical complaints at this time. 03-11 REMAINS ON 5L BY NASAL CANULA WILL TRY DUONEBS AND MUCINEX AND IS ELISHA RN AND PATIENT INR NOT AT GOAL YET 2.1 Objective Vitals Vital Signs Date Time Temp Pulse Resp B/P (MAP) Pulse Ox O2 Delivery O2 Flow Rate FiO2 03/11/18 11:50 98.1 92 17 132/72 (92) 89 03/11/18 08:20 Nasal Cannula 5.00 03/11/18 08:00 98.4 95 17 134/82 (99) 92 03/11/18 04:00 97.8 86 20 139/75 (96) 93 03/11/18 00:00 98.2 92 20 148/75 (99) 92 03/10/18 20:00 98.5 90 20 127/58 (81) 93 03/10/18 19:39 Nasal Cannula 5.00 03/10/18 16:28 97.9 94 18 128/72 (90) 91 I/O 03/10/18 03/10/18 03/10/18 03/11/18 03/11/18 03/11/18 06:59 14:59 22:59 06:59 14:59 22:59 Intake Total 360 ml 960 ml 965 ml Output Total 650 ml 750 ml Balance -290 ml 960 ml 215 ml Intake Oral 360 ml 960 ml 720 ml IV Total 245 ml Output Urine Total 650 ml 750 ml # Voids 6 # Bowel Movements 0 2 Result Diagram: 03/11/1827 03/11/18526 Other Results Laboratory Tests Test 03/09/18 05:40 03/09/18 12:10 03/10/18 05:43 03/11/18 05:27 White Blood Count 13.7 TH/MM3 13.6 TH/MM3 Red Blood Count 4.14 MIL/MM3 4.07 MIL/MM3 Hemoglobin 12.8 GM/DL 12.6 GM/DL Hematocrit 37.7 % 37.3 % Mean Corpuscular Volume 91.2 FL 91.7 FL Mean Corpuscular Hemoglobin 31.0 PG 31.1 PG Mean Corpuscular Hemoglobin Concent 34.0 % 33.9 % Red Cell Distribution Width 13.7 % 13.2 % Platelet Count 251 TH/MM3 272 TH/MM3 Mean Platelet Volume 8.8 FL 8.9 FL Neutrophils (%) (Auto) 68.4 % 70.5 % Lymphocytes (%) (Auto) 16.2 % 14.7 % Monocytes (%) (Auto) 12.3 % 11.0 % Eosinophils (%) (Auto) 2.6 % 3.0 % Basophils (%) (Auto) 0.5 % 0.8 % Neutrophils # (Auto) 9.4 TH/MM3 9.6 TH/MM3 Lymphocytes # (Auto) 2.2 TH/MM3 2.0 TH/MM3 Monocytes # (Auto) 1.7 TH/MM3 1.5 TH/MM3 Eosinophils # (Auto) 0.4 TH/MM3 0.4 TH/MM3 Basophils # (Auto) 0.1 TH/MM3 0.1 TH/MM3 CBC Comment DIFF FINAL DIFF FINAL Differential Comment Prothrombin Time 14.9 SEC 20.1 SEC 21.6 SEC Prothromb Time International Ratio 1.5 RATIO 2.0 RATIO 2.1 RATIO Activated Partial Thromboplast Time 54.9 SEC 70.4 SEC 60.8 SEC Blood Urea Nitrogen 24 MG/DL 29 MG/DL Creatinine 1.07 MG/DL 1.19 MG/DL Random Glucose 128 MG/DL 123 MG/DL Total Protein 6.9 GM/DL Albumin 3.3 GM/DL Calcium Level 9.1 MG/DL 9.3 MG/DL Phosphorus Level 3.7 MG/DL Magnesium Level 2.0 MG/DL Alkaline Phosphatase 75 U/L Aspartate Amino Transf (AST/SGOT) 25 U/L Alanine Aminotransferase (ALT/SGPT) 20 U/L Total Bilirubin 0.7 MG/DL Sodium Level 136 MEQ/L 132 MEQ/L Potassium Level 3.2 MEQ/L 3.5 MEQ/L Chloride Level 95 MEQ/L 93 MEQ/L Carbon Dioxide Level 26.4 MEQ/L 25.7 MEQ/L Anion Gap 15 MEQ/L 13 MEQ/L Estimat Glomerular Filtration Rate 67 ML/MIN 60 ML/MIN Hemoglobin A1c 5.9 % Free Thyroxine 1.29 NG/DL Thyroid Stimulating Hormone 3rd Gen 0.346 uIU/ML Blood Gas Puncture Site RT RADIAL Blood Gas Patient Temperature 98.6 Blood Gas HCO3 27 mmol/L Blood Gas Base Excess 3.2 mmol/L Blood Gas Oxygen Saturation 92 % Arterial Blood pH 7.48 Arterial Blood Partial Pressure CO2 37 mmHg Arterial Blood Partial Pressure O2 71 mmHg Arterial Blood Oxygen Content 17.7 Vol % Arterial Blood Carboxyhemoglobin 1.3 % Arterial Blood Methemoglobin 1.1 % Blood Gas Hemoglobin 13.7 G/DL Oxygen Delivery Device SIMPLE MASK Blood Gas Liter Flow 6 L/M Imaging Last Impressions Chest X-Ray 03/09/18 Signed Impressions: CONCLUSION: No acute pulmonary infiltrates. No significant change. CT Angiography 03/09/18 Signed Impressions: CONCLUSION: 1. No definite PE is demonstrated. 2. Chronic interstitial changes are seen bilaterally. No acute pulmonary infilt rates. Ankle X-Ray 03/06/18 0000 Signed Impressions: Service Date/Time: Tuesday, March 06, 2018 08:38 - CONCLUSION: 1. Left ankle ORIF, as above. Brody Wright MD Tibia/Fibula X-Ray 03/05/18 1027 Signed Impressions: Service Date/Time: Monday, March 05, 2018 10:48 - CONCLUSION: Tibial and fibular fractures with soft tissue swelling and deformity at the ankle. Eriberto Ramon MD Knee X-Ray 03/05/18 1027 Signed Impressions: Service Date/Time: Monday, March 05, 2018 10:53 - CONCLUSION: Unremarkable limited examination of the left knee. Eriberto Ramon MD Foot X-Ray 03/05/18 1027 Signed Impressions: Service Date/Time: Monday, March 05, 2018 10:56 - CONCLUSION: Fracture dislocation at the ankle. Eriberto Ramon MD Objective Remarks GENERAL: Awake alert and oriented 3 talkative and cooperative SKIN: Warm and dry. HEAD: Atraumatic. Normocephalic. EYES: Pupils equal and round. No scleral icterus. No injection or drainage. Extraocular muscles intact ENT: No nasal bleeding or discharge. Mucous membranes pink and moist. Tongue is midline NECK: Trachea midline. No JVD. Supple CARDIOVASCULAR: IRRegular rate and rhythm. S1-S2 no S3 or S4 positive click RESPIRATORY: No accessory muscle use. DECreased breath sounds bilaterally some scattered rhonchi on the right only not on the left GASTROINTESTINAL: Abdomen soft, non-tender, nondistended. Hepatic and splenic margins not palpable. MUSCULOSKELETAL: Extremities without clubbing, cyanosis, or edema. No obvious deformities. NEUROLOGICAL: Awake and alert. No obvious cranial nerve deficits. Motor grossly within normal limits. Five out of 5 muscle strength in the arms and legs. Normal speech. Left lower extremity is dressed PSYCHIATRIC: Appropriate mood and affect; insight and judgment normal. Procedures 03/06/18 - Left ankle open reduction and internal fixation of trimalleolar fracture by Dr. Rm Medications and IVs Current Medications Propofol (Diprivan 500 Mg/ 50 ml Inj) 25 mg ONCE ONCE IV ; Start 03/05/18 at 14 :00; Stop 03/05/18 at 14:01; Status DC EZETIMIBE (Zetia) 10 mg DAILY PO Last administered on 03/11/18 08:26; Start at 09:00 Furosemide (Lasix) 40 mg DAILY PO Last administered on 03/11/18 08:25; Start 03/06/18 at 09:00 Hydrochlorothiazide (Hydrodiuril) 50 mg DAILY PO Last administered on 08:26; Start 03/06/18 at 09:00 Metoprolol Succinate (Toprol Xl) 25 mg DAILY PO Last administered on 03/11/18 08:24; Start 03/06/18 at 09:00 Sodium Chloride (NS Flush) 2 ml UNSCH PRN IV FLUSH FLUSH AFTER USING IV ACCESS ; Start 03/05/18 at 15:45 Sodium Chloride (NS Flush) 2 ml BID IV FLUSH Last administered on 03/11/18 08: 25; Start 03/05/18 at 21:00 Acetaminophen (Tylenol) 650 mg Q4H PRN PO TEMP > 100.4 Last administered on 08:29; Start 03/05/18 at 15:45 Ondansetron HCl (Zofran Inj) 4 mg Q6H PRN IVP NAUSEA OR VOMITING; Start at 15:45; Stop 03/05/18 at 15:51; Status DC Zolpidem Tartrate (Ambien) 5 mg HS PRN PO INSOMNIA; Start 03/05/18 at 15:45 Naloxone HCl (Narcan Inj) 0.4 mg UNSCH PRN IV PUSH SEE LABEL COMMENTS; Start at 15:45 Senna/Docusate Sodium (Kaylen-Colace) 1 tab BID PO Last administered on 08:31; Start 03/05/18 at 21:00 Magnesium Hydroxide (Milk Of Magnesia Liq) 30 ml Q12H PRN PO Mild constipation ; Start 03/05/18 at 15:45 Sennosides (Senokot) 17.2 mg Q12H PRN PO Moderate constipation; Start 03/05/18 at 15:45 Bisacodyl (Dulcolax Supp) 10 mg DAILY PRN RECTAL SEVERE CONSITIPATION; Start at 15:45 Lactulose (Lactulose Liq) 30 ml DAILY PRN PO SEVERE CONSITIPATION; Start at 15:45 Ondansetron HCl (Zofran Odt) 4 mg Q4H PRN PO NAUSEA OR VOMITING Last administered on 03/10/18at 15:31; Start 03/05/18 at 15:45 Heparin Sodium/ Dextrose 250 ml @ 10 mls/hr TITRATE PRN IV Coagulation Management Last administered on 03/05/18at 16:29; Start 03/05/18 at 17:00; Stop 03/05/18 at 23:53; Status DC Morphine Sulfate (Morphine Inj) 2 mg Q3H PRN IV PUSH pain >5 if NPO; Start at 21:45; Stop 03/05/18 at 22:04; Status DC Acetaminophen/ Hydrocodone Bitart ([place] 5-325 Mg) 1 tab Q4H PRN PO pain >5; Start 03/05/18 at 21:45; Stop 03/06/18 at 10:10; Status DC Acetaminophen/ Hydrocodone Bitart ([place] 10-325 Mg) 1 tab Q4H PRN PO pain >10 Last administered on 03/05/18at 23:53; Start 03/05/18 at 21:45; Stop 03/06/18 at 10:10; Status DC Lactated Ringer's 1,000 ml @ 30 mls/hr Q24H PRN IV SEE LABEL COMMENTS; Start at 22:00; Stop 03/06/18 at 10:03; Status DC Sodium Chloride 500 ml @ 30 mls/hr [id number] PRN IV SEE LABEL COMMENTS; Start at 22:00; Stop 03/06/18 at 10:03; Status DC Metoprolol Tartrate (Lopressor) 25 mg GLUE SPECIALTY SUPERVISOR PRN PO SEE LABEL COMMENTS; Start 03/05/18 at 22:00; Stop 03/08/18 at 21:59; Status Cancel Povidone Iodine (Betadine 5% Antisepsis Kit) 1 applic GL[employer] SPECIALTY SUPERVISOR PRN EACH NARE SEE LABEL COMMENTS; Start 03/05/18 at 22:00; Stop 03/08/18 at 21:59; Status DC Chlorhexidine Gluconate (Chlorhexidine 2% Cloth) 3 pack GLUE SPECIALTY SUPERVISOR PRN TOPICAL SEE LABEL COMMENTS; Start 03/05/18 at 22:00; Stop 03/08/18 at 21:59; Status DC Morphine Sulfate (Morphine Inj) 2 mg Q3H PRN IV PUSH pain >5 if NPO Last administered on 03/06/18at 04:40; Start 03/05/18 at 22:15 Heparin Sodium/ Dextrose 250 ml @ 10 mls/hr TITRATE PRN IV Coagulation Management; Start 03/05/18 at 23:45; Stop 03/06/18 at 02:00; Status DC Acetaminophen 100 ml @ As Directed STK-MED ONCE IV ; Start 03/06/18 at 05:58; Stop 03/06/18 at 05:59; Status DC Bupivacaine HCl/ Epinephrine Bitart (Sensorcaine-Epinephrine Pf 0.5% Inj) 20 ml STK-MED ONCE .ROUTE ; Start 03/06/18 at 07:20; Stop 03/06/18 at 07:21; Status DC Gentamicin Sulfate (Gentamicin Inj) 240 mg STK-MED ONCE .ROUTE Last administered on 03/06/18at 08:28; Start 03/06/18 at 07:21; Stop 03/06/18 at 07:22 ; Status DC Fentanyl Citrate (fentaNYL INJ) 250 mcg STK-MED ONCE .ROUTE ; Start 03/06/18 at 07:28; Stop 03/06/18 at 07:29; Status DC Cefazolin Sodium/ Dextrose 50 ml @ As Directed STK-MED ONCE .ROUTE Last administered on 03/06/18at 07:55; Start 03/06/18 at 07:44; Stop 03/06/18 at 07:45 ; Status DC Dextrose/Sodium Chloride 1,000 ml @ 100 mls/hr Q10H IV Last administered on at 12:57; Start 03/06/18 at 10:00 Sodium Chloride (NS Flush) 2 ml UNSCH PRN IV FLUSH FLUSH AFTER USING IV ACCESS ; Start 03/06/18 at 09:45; Stop 03/06/18 at 10:09; Status DC Miscellaneous Information (Misc Post-op Orders (for Pharmacy)) STAT ONCE XX ; Start 03/06/18 at 09:45; Stop 03/06/18 at 10:03; Status DC Patient Medication Teaching (Coumadin Booklet) 1 ONCE ONCE XX Last administered on 03/07/18at 06:29; Start 03/06/18 at 16:00; Stop 03/06/18 at 16:01 ; Status DC Cefazolin Sodium 1000 mg/Sodium Chloride 100 ml @ 200 mls/hr Q8H IV Last administered on 03/07/18at 05:43; Start 03/06/18 at 15:00; Stop 03/07/18 at 07:29 ; Status DC Miscellaneous Information ([facility]) UNSCH PRN XX SEE LABEL COMMENTS; Start 03/06/18 at 09:45 Miscellaneous Medication ([facility]) ONCE ONCE XX Last administered on 03/08/18at 12:00; Start 03/08/18 at 12:00; Stop 03/08/18 at 12:01 ; Status DC Oxycodone/ Acetaminophen (Percocet 5-325 Mg) 1 tab Q4H PRN PO PAIN LESS THAN 5 ON SCALE; Start 03/06/18 at 09:45 Diphenhydramine HCl (Benadryl) 25 mg Q6H PRN PO ITCHING; Start 03/06/18 at 09: 45 Morphine Sulfate (Morphine 1 Mg/ ml HARDBOARD PRESS OPERATOR) 30 mg UNSCH IV Last administered on at 10:18; Start 03/06/18 at 09:45; Stop 03/08/18 at 12:00; Status DC HARDBOARD PRESS OPERATOR Dosage Infused (Pha) 1 Q8HR .XX Last administered on 03/08/18at 14:00; Start 03/06/18 at 14:00; Stop 03/08/18 at 14:01; Status DC Morphine Sulfate (*morphine INJ PERIprocedure ONLY) 4 mg STK-MED ONCE .ROUTE Last administered on 03/06/18at 10:01; Start 03/06/18 at 10:01; Stop 03/06/18 at 10:02; Status DC Miscellaneous Information ([facility]) ALL NURSING DEPARTME... UNSCH PRN .XX SEE LABEL COMMENTS; Start 03/06/18 at 10:30; Stop 03/07/18 at 10: 29; Status DC Heparin Sodium/ Dextrose 250 ml @ 18 mls/hr TITRATE PRN IV Coagulation Management Last administered on 03/11/18at 06:05; Start 03/06/18 at 13:30 Warfarin Sodium (Coumadin) 5 mg DAILY@1600 PO Last administered on 03/07/18at 16 :06; Start 03/07/18 at 16:00; Stop 03/08/18 at 08:50; Status DC Pharmacy Profile Note 0 ml @ 0 mls/hr UNSCH OTHER ; Start 03/06/18 at 14:00; Status Cancel Pharmacy Profile Note 0 ml @ 0 mls/hr UNSCH OTHER ; Start 03/06/18 at 17:15 Patient Medication Teaching (Coumadin Booklet) 1 STK-MED ONCE .ROUTE ; Start at 06:27; Stop 03/07/18 at 06:28; Status DC Warfarin Sodium (Coumadin) 2.5 mg ONCE ONCE PO Last administered on 03/07/18at 17:21; Start 03/07/18 at 16:15; Stop 03/08/18 at 08:50; Status DC Warfarin Sodium (Coumadin) 1 mg ONCE@1600 ONCE PO Last administered on at 16:06; Start 03/08/18 at 16:00; Stop 03/08/18 at 16:01; Status DC Warfarin Sodium (Coumadin) 7.5 mg DAILY@16 PO Last administered on 03/09/18at 15 :18; Start 03/08/18 at 16:00; Stop 03/10/18 at 08:15; Status DC Lactated Ringer's 1,000 ml @ As Directed STK-MED ONCE IV ; Start 03/06/18 at 12 :00; Stop 03/08/18 at 13:19; Status DC Lidocaine HCl (Xylocaine-Mpf 1% Inj) 5 ml STK-MED ONCE OTHER ; Start 03/06/18 at 12:00; Stop 03/08/18 at 13:19; Status DC Phenylephrine HCl (Neosynephrine/ NS 1000 Mcg/10ml Syr) 1,000 mcg STK-MED ONCE IV ; Start 03/06/18 at 12:00; Stop 03/08/18 at 13:19; Status DC Dexamethasone Sodium Phosphate (Decadron Inj) 8 mg STK-MED ONCE IV ; Start 03/06 at 12:00; Stop 03/08/18 at 13:19; Status DC Ondansetron HCl (Zofran Inj) 4 mg STK-MED ONCE IV PUSH ; Start 03/06/18 at 12:00 ; Stop 03/08/18 at 13:19; Status DC Propofol (Diprivan 200 Mg/20 ml Inj) 200 mg STK-MED ONCE IV ; Start 03/06/18 at 12:00; Stop 03/08/18 at 13:19; Status DC Potassium Chloride (KCl) 40 meq ONCE ONCE PO Last administered on 03/09/18at 15 :18; Start 03/09/18 at 13:30; Stop 03/09/18 at 13:52; Status DC Albuterol/ Ipratropium (Duoneb Neb) 1 ampule Q4HR NEB PRN NEB SOB/wheezing; Start 03/09/18 at 14:30 Iohexol (Omnipaque 350 Inj) 75 ml STK-MED ONCE IVCONTRAST Last administered on 03/09/18at 17:41; Start 03/09/18 at 17:41; Stop 03/09/18 at 17:42; Status DC Warfarin Sodium (Coumadin) 6 mg DAILY@1600 PO Last administered on 03/10/18at 16 :00; Start 03/10/18 at 16:00 Sodium Chloride ([place] Kana Nallen) 2 spray ONCE ONCE EACH NARE ; Start 03/10/18 at 13:45; Stop 03/10/18 at 14:10; Status DC Sodium Chloride ([place] Kana Nallen) 2 spray Q4H PRN EACH NARE NASAL CONGESTION Last administered on 03/10/18at 16:12; Start 03/10/18 at 15:00 Albuterol/ Ipratropium (Duoneb Neb) 1 ampule Q6HR NEB NEB ; Start 03/11/18 at 11:45; Status UNV Albuterol/ Ipratropium (Duoneb Neb) 1 ampule Q4HR NEB PRN NEB SOB/COUGH; Start 03/11/18 at 11:45; Status UNV Guaifenesin (Mucinex Er) 1,200 mg BID PO ; Start 03/11/18 at 11:45; Status UNV A/P Problem List: (1) Ankle fracture, left ICD Code: S82.892A - Other fracture of left lower leg, initial encounter for closed fracture Status: Acute (2) History of mechanical aortic valve replacement ICD Code: Z95.2 - History of mechanical aortic valve replacement Status: Acute (3) Hypertension ICD Code: I10 - Hypertension Status: Acute (4) Hyperlipidemia ICD Code: E78.5 - Hyperlipidemia Status: Acute (5) Fall ICD Code: W19.XXXA - Unspecified fall, initial encounter (6) Trimalleolar fracture of left ankle ICD Code: S82.852A - Displaced trimalleolar fracture of left lower leg, initial encounter for closed fracture Assessment and Plan 77-year-old male with past medical history of CAD, hypertension, hyperlipidemia , mechanical AVR anticoagulated with Coumadin, GERD who presents to [facility] after mechanical fall with subsequent left ankle fracture. Left Ankle Trimalleolar Fracture: s/p mechanical fall. -Left tib-fib and ankle x-rays reviewed, shows tibial and fibular fractures with soft tissue swelling and deformity at the ankle with dislocation -Orthopedics consulted, s/p ORIF on 03/06/[address] Rm -Continue pain control with Percocet as needed -Continue physical therapy, LLE nonweightbearing per ortho -Plan for discharge to [facility] Mechanical AVR with subtherapeutic INR: INR 2.0 upon arrival -Coumadin initially held for surgery, now restarted -Continue bridging with IV heparin drip -Pharmacy consulted to assist with Coumadin dosing -Monitor daily INR, currently 2.0, goal 2.5-3.5 Hypoxia: O2 sat into the upper 80s on 03/09/18, requiring simple mask with 6 L nasal cannula. Does not appear to be significantly fluid overloaded. -Repeat stat chest x-ray reviewed, with no acute findings -ABG reviewed, grossly unremarkable -CT-PA reviewed, no PE, shows chronic interstitial changes, no acute infiltrates -Duo nebs as needed -Incentive spirometry -O2 as needed -discussed with case management, does not need walk test prior to discharge to SNF -Added saline nasal spray prn for congestion Hypertension/Hyperlipidemia: BP fairly well-controlled -Continue patient's HCTZ 50 mg, Toprol-XL 25 mg daily, Lasix 40 mg, Zetia 10mg daily -Monitor BP, adjust antihypertensives as needed GERD: Chronic -Continue PPI DVT prophylaxis: On Coumadin, bridging with IV heparin drip INR 2.1 Discharge Planning Discharge pending therapeutic INR 2.5 to 3.5. Plan to discharge to [facility] when INR therapeutic. Discharge Planning Discharge Planning Discharge pending therapeutic INR 2.5 to 3.5. Plan to discharge to [facility] when INR therapeutic. Problem Qualifiers (1) Ankle fracture, left: Qualified Codes: S82.892A - Other fracture of left lower leg, initial encounter for closed fracture (2) Trimalleolar fracture of left ankle: Qualified Codes: S82.852A - Displaced trimalleolar fracture of left lower leg, initial encounter for closed fracture Derrick Prather DO March 11, 2018 12:07
[2018-03-11] MEDS: predniSONE 20 MG TAB PO SCH ×2 (12:43→20:32)
[2018-03-11] MEDS: guaiFENesin E.R. 600 MG TAB PO SCH ×2 (12:43→20:32)
[2018-03-11] MEDS ORDERED: PANTOPRAZOLE SOD 40 MG DELAYED RELEASE TAB PO ONE (13:00)
--- NOTE | 2018-03-11 13:02 | RADRPT ---
EXAM DATE: 03/11/2018 12:59 PM EDT AGE/SEX: 77 years / Male INDICATIONS: Dyspnea. CLINICAL DATA: This is the patient's initial encounter. Patient reports that signs and symptoms have been present for 3 days and indicates a pain score of 0/10. MEDICAL/SURGICAL HISTORY: Cardiovascular disease. Hypertension. CABG. Tracheostomy. [place] [facility] [place]. . FINDINGS: No new focal pleural or parenchymal opacities. Postsurgical features of prior median sternotomy. Card iomediastinal contours are stable. Remainder of the exam is unchanged. CONCLUSION: 1. No acute abnormality or significant interval change. Electronically signed by: Brody Wright MD 03/11/2018 1:01 PM EDT
[2018-03-11] MEDS: WARFARIN SOD 6 MG TAB PO SCH (15:44)
[2018-03-11] MEDS: RESP: ALBUTEROL 2.5 MG/IPRATROPIUM 0.5 MG NEB (SCH) NEB ×2 (16:03→19:47)
[2018-03-11] MEDS: SODIUM CHLORIDE 0.65% NASAL SPRAY 45 ML BTL EACH NARE PRN (20:33)
--- NOTE | 2018-03-11 21:00 | HHI.PR ---
Addendum to Inpatient Note Addendum Reason: Additional Documentation Additional Information S: Medical Team conference planning manager paged for SHARON at approximately 2019. Per nursing staff report, patient had been having fluctuating oxygen saturation throughout the day without respiratory distress. SHARON was then called tonight as patient 's saturation was lowered to the mid 80s per report. Upon arriving to the room , the patient is on a nonrebreather and able to fully conversant with the medical team. He states that he is in no pain and feels "absolutely fine." He denies a complete review of systems including but not limited to any fevers, chills, shortness of breath, chest pain, NVD, or ABD pain. Upon further review patient is postop day 5 from an left ankle ORIF without complications per report. Of note, patient currently on heparin drip for heart valve replacement since 03/07/18 with a negative CTA on 03/09 for similar symptoms. O: GENERAL: Elderly male lying in bed in no acute distress with nonrebreather facemask on. SKIN: Warm and dry. No rash. HEENT: Atraumatic, normocephalic with extraocular motions intact. Left eyelid lowered compared to right eyelid (patient's baseline per nursing staff report). No rhinorrhea. No visible lymphadenopathy or jugulovenous distension appreciated. CARDIOVASCULAR: Regular rate and rhythm without obvious murmurs, gallops, or rubs. 2+ pulses in all four extremities. RESPIRATORY: Clear to auscultation bilaterally with no crackles, wheezes, or rhonchi. No increased work of breathing. GASTROINTESTINAL: Abdomen soft, non-tender, nondistended with positive bowel sounds. No masses appreciated. MUSCULOSKELETAL: No cyanosis or edema. LLE: Left lower extremity Jomar bandaged from just inferior to the patella to the distal toes. Popliteal pulses 2+. Unable to evaluate DP/PT pulses. Appropriate capillary refill with range of motion and sensation intact throughout the toes. RLE: Right lower extremity within normal limits. No erythema, swelling , or other abnormality appreciated at this time. NEURO/PSYCH: Afocal. Awake, alert, and oriented x3. Normal speech and judgement. A/P: Mr. Cooper is a 77-year-old male admitted for left ankle fracture who is postop day 5 from ORIF. Patient presenting with oxygen desaturations without respiratory distress. 1. Oxygen desaturation -Stat chest x-ray ordered: No acute abnormality per medical team read. -ABG: PH 7.47, PaO2 80, PaCO2 39, HCO3 28; stable from previous exam on 03/09/80 -Patient currently on heparin drip, Well's Criteria for PE 1.5 (low risk) -Encouraged nursing staff to place patient up in the bed with regular use of incentive spirometer -Primary team notified by nursing staff and will resume care at this time Leroy Damon MD R2 March 11, 2018 21:00
--- NOTE | 2018-03-11 21:04 | RADRPT ---
EXAM DATE: 03/11/2018 8:56 PM EDT AGE/SEX: 77 years / Male INDICATIONS: Short of breath, Halicat. CLINICAL DATA: This is the patient's initial encounter. Patient reports that signs and symptoms have been present for 1 day and indicates a pain score of 0/10. MEDICAL/SURGICAL HISTORY: . Cardiovascular disease. Hypertension . CABG. Tracheostomy. [place] [facility] [place]. . FINDINGS: A single AP view of the chest demonstrates the lungs to be symmetrically aerated without evidence of mass, infiltrate or effusion. The cardiomediastinal contours are unremarkable. Osseous structures a re intact. The patient is status post median sternotomy. CONCLUSION: No acute cardiopulmonary disease. Electronically signed by: John Zaldivar MD 03/11/2018 9:02 PM EDT
[2018-03-11 22:45] LABS: BICARBONATE 26.4 MEQ/L (21.0-32.0); CALCIUM 9.2 MG/DL (8.5-10.1); CREATININE 1.55 MG/DL (0.60-1.30); MAGNESIUM 2.4 MG/DL (1.5-2.5); PHOSPHORUS 3.9 MG/DL (2.5-4.9)
[2018-03-12] VITALS (8 sets, daily range): BP systolic 131–177; BP diastolic 57–75; PULSE 74–93; RESP 18–19; TEMP 97.7–98.6; O2SAT 92–96
[2018-03-12] MEDS ORDERED: SODIUM CHLORID 0.9% 500 ML INJ 500 ML IV ONE (00:15)
--- NOTE | 2018-03-12 01:20 | RADRPT ---
EXAM DATE: 03/12/2018 1:15 AM EDT AGE/SEX: 77 years / Male INDICATIONS: Shortness of breath, decreased oxygen sats. CLINICAL DATA: This is the patient's initial encounter. Patient reports that signs and symptoms have been present for 1 day and indicates a pain score of 0/10. MEDICAL/SURGICAL HISTORY: Hypertension. Coronary artery disease. . Aortic valve replacement. RADIATION DOSE: 15.08 CTDI (mGy) COMPARISON: [facility], CT THORAX W/O CONTRAST, 11/20/2015. . TECHNIQUE: Multiple contiguous axial images were obtained through the chest without contrast. Image s were obtained in suspended respiration using multiple row detector helical technique. Using automa vidhya exposure control and adjustment of the mA and/or kV according to patient size, radiation dose was kept as low as reasonably achievable to obtain optimal diagnostic quality images. FINDINGS: Lungs: The lungs are symmetrically aerated. No infiltrates or nodular densities are seen. Mediastinum: The patient is status post sternotomy. There is a prosthetic aortic valve present. Ther e is aneurysmal dilatation of the ascending aorta measuring 4.8 cm in diameter. Pleurae: No evidence of focal thickening or pleural effusion. Axillae: Unremarkable. Bony Structures: Unremarkable. Miscellaneous: The examination was extended to include the upper abdomen, and both adrenal glands ar e normal in size and configuration. There is a mild hiatal hernia. There is decreased attenuation to the liver. There are calcifications in the central superior left kidney CONCLUSION: 1. Status post sternotomy and aortic valve replacement. There is aneurysmal dilatation of the ascend ing aorta. 2. Hepatic steatosis. 3. Mild hiatal hernia. 4. Calcifications in the superior left kidney related to either nonobstructing stones or cortical ca lcifications. Electronically signed by: Diego Palacios MD 03/12/2018 1:19 AM EDT
[2018-03-12] MEDS: RESP: ALBUTEROL 2.5 MG/IPRATROPIUM 0.5 MG NEB (SCH) NEB ×4 (04:42→20:23)
[2018-03-12] MEDS: DEXT 5%-NACL 0.45% 1000 ML INJ 1,000 ML IV SCH ×2 (06:00→16:00)
[2018-03-12 07:07] LABS: AUTOMATED NEUTROPHIL # 12.8 TH/MM3 (1.8-7.7); BASOPHIL % 0.3 % (0.0-2.0); HEMOGLOBIN 12.5 GM/DL (13.0-17.0); LYMPH % 8.9 % (9.0-44.0); LYMPHOCYTE # 1.4 TH/MM3 (1.0-4.8); MEAN CELL VOLUME 91.4 FL (80.0-100.0); MEAN CORPUSCULAR HEMOGLOBIN 30.7 PG (27.0-34.0); MEAN CORPUSCULAR HGB CONC 33.6 % (32.0-36.0); MEAN PLATELET VOLUME 9.3 FL (7.0-11.0); MONO % 8.2 % (0.0-8.0); MONOCYTE # 1.3 TH/MM3 (0-0.9); NEUT % 82.6 % (16.0-70.0); PLATELET COUNT 290 TH/MM3 (150-450); RED BLOOD COUNT 4.05 MIL/MM3 (4.50-5.90); RED CELL DISTRIBUTION WIDTH 13.1 % (11.6-17.2); WHITE BLOOD COUNT 15.5 TH/MM3 (4.0-11.0)
[2018-03-12 07:10] LABS: HEMATOCRIT 37.4 % (39.0-51.0); HEMOGLOBIN 12.3 GM/DL (13.0-17.0); MEAN CELL VOLUME 90.3 FL (80.0-100.0); MEAN CORPUSCULAR HEMOGLOBIN 29.7 PG (27.0-34.0); MEAN CORPUSCULAR HGB CONC 32.9 % (32.0-36.0); MEAN PLATELET VOLUME 9.3 FL (7.0-11.0); PLATELET COUNT 306 TH/MM3 (150-450); RED BLOOD COUNT 4.14 MIL/MM3 (4.50-5.90); RED CELL DISTRIBUTION WIDTH 13.4 % (11.6-17.2); WHITE BLOOD COUNT 15.4 TH/MM3 (4.0-11.0)
[2018-03-12 07:25] LABS: INTERNATIONAL NORMALIZED RATIO 2.1 RATIO
[2018-03-12 07:39] LABS: ALBUMIN 3.1 GM/DL (3.4-5.0); ALT (GPT) 29 U/L (12-78); AST (GOT) 28 U/L (15-37); BICARBONATE 28.1 MEQ/L (21.0-32.0); BLOOD UREA NITROGEN 34 MG/DL (7-18); CALCIUM 8.9 MG/DL (8.5-10.1); CHLORIDE 93 MEQ/L (98-107); CREATININE 1.33 MG/DL (0.60-1.30); GLOMERULAR FILTRATION RATE 52 ML/MIN (>89); GLUCOSE,RANDOM 140 MG/DL (74-106); MAGNESIUM 2.5 MG/DL (1.5-2.5); PHOSPHORUS 3.8 MG/DL (2.5-4.9); SODIUM (NA) 135 MEQ/L (136-145)
[2018-03-12 07:41] LABS: ALKALINE PHOSPHATASE 96 U/L (45-117); TOTAL BILIRUBIN ADULT 0.7 MG/DL (0.2-1.0); TOTAL PROTEIN 7.1 GM/DL (6.4-8.2)
[2018-03-12] MEDS: SODIUM CHLORIDE 0.9% FLUSH 10 ML FLUSH IV FLUSH SCH ×2 (08:02→20:36)
[2018-03-12] MEDS: METOPROLOL SUCCINATE 25 MG EXTENDED RELEASE TAB PO SCH (08:03)
[2018-03-12] MEDS: FUROSEMIDE 40 MG TAB PO SCH (08:03)
[2018-03-12] MEDS: guaiFENesin E.R. 600 MG TAB PO SCH ×2 (08:03→20:36)
[2018-03-12] MEDS: DOCUSATE SODIUM 50 MG/SENNA 8.6 MG TAB PO SCH ×2 (08:03→20:36)
[2018-03-12] MEDS: EZETIMIBE 10 MG TAB PO SCH (08:03)
[2018-03-12] MEDS: predniSONE 20 MG TAB PO SCH (08:03)
[2018-03-12] MEDS: HYDROCHLOROTHIAZIDE 50 MG TAB PO SCH (08:03)
[2018-03-12] MEDS: PANTOPRAZOLE SOD 40 MG DELAYED RELEASE TAB PO SCH (08:03)
[2018-03-12] MEDS ORDERED: POTASSIUM CHLORIDE 20 MEQ CONTROLLED RELEASE TAB PO ONE (08:15)
--- NOTE | 2018-03-12 10:55 | HHI.PR ---
Subjective Remarks Patient reports no active shortness of breath no chest pain. Wants to go to rehab soon. Is usually not on oxygen; is open to getting oxygen. States that we did not start his home potassium and that is the reason for the low potassium levels Objective Vitals Vital Signs Date Time Temp Pulse Resp B/P (MAP) Pulse Ox O2 Delivery O2 Flow Rate FiO2 03/12/18 10:07 92 Nasal Cannula 5.00 03/12/18 09:50 Nasal Cannula 5.00 Humidified 03/12/18 08:00 98.3 79 19 177/75 (109) 94 03/12/18 04:44 94 Nasal Cannula 5.00 03/12/18 03:36 Simple Mask 6.00 03/12/18 03:00 97.7 74 18 135/65 (88) 92 03/11/18 23:42 Simple Mask 6.00 03/11/18 23:40 89 Nasal Cannula 5.00 Humidified 03/11/18 23:02 92 Nasal Cannula 5.00 Humidified 03/11/18 23:01 97.9 81 19 123/68 (86) 92 03/11/18 20:17 89 15.00 100 03/11/18 20:09 89 Non-Rebreather 15.00 100 03/11/18 19:36 98.1 88 18 127/63 (84) 87 03/11/18 18:57 Nasal Cannula 5.00 03/11/18 16:00 98.2 86 17 124/67 (86) 91 03/11/18 11:50 98.1 92 17 132/72 (92) 89 I/O 03/11/18 03/11/18 03/11/18 03/12/18 03/12/18 03/12/18 06:59 14:59 22:59 06:59 14:59 22:59 Intake Total 965 ml 480 ml 1172 ml Output Total 750 ml 300 ml Balance 215 ml 480 ml 872 ml Intake Oral 720 ml 480 ml 480 ml IV Total 245 ml 692 ml Output Urine Total 750 ml 300 ml # Voids 4 # Bowel Movements 1 0 Result Diagram: 03/12/1861303/12/18613 Other Results Item Value Date Time Prothromb Time International Ratio 2.1 RATIO 03/12/18613 Objective Remarks GENERAL: This is a well-nourished, obese, well-developed patient, in no apparent distress. CARDIOVASCULAR: Regular rate and rhythm RESPIRATORY: Relatively clear to auscultation. GASTROINTESTINAL: Abdomen soft, obese, non-tender, nondistended. Normal active bowel sounds MUSCULOSKELETAL: Extremities without clubbing, cyanosis, with trace edema NEURO: Alert & Oriented x4 to person, place, time, situation. Moves all ext x4 Procedures 03/06/18 - Left ankle open reduction and internal fixation of trimalleolar fracture by Dr. Rm A/P Problem List: (1) Ankle fracture, left ICD Code: S82.892A - Other fracture of left lower leg, initial encounter for closed fracture Status: Acute (2) History of mechanical aortic valve replacement ICD Code: Z95.2 - History of mechanical aortic valve replacement Status: Acute (3) Hypertension ICD Code: I10 - Hypertension Status: Acute (4) Hyperlipidemia ICD Code: E78.5 - Hyperlipidemia Status: Acute (5) Fall ICD Code: W19.XXXA - Unspecified fall, initial encounter (6) Trimalleolar fracture of left ankle ICD Code: S82.852A - Displaced trimalleolar fracture of left lower leg, initial encounter for closed fracture Assessment and Plan 77-year-old male with past medical history of CAD, hypertension, hyperlipidemia , mechanical AVR anticoagulated with Coumadin, GERD who presents to [place] after mechanical fall with subsequent left ankle fracture. Left Ankle Trimalleolar Fracture with dislocation: s/p mechanical fall and status post ORIF on 03/[address] Rm. -Continue pain control with Percocet as needed -Continue physical therapy, LLE nonweightbearing per ortho -Plan for discharge to [facility] re[facility] Mechanical AVR with subtherapeutic INR: INR 2.0 upon arrival -Coumadin initially held for surgery, now restarted -Continue bridging with IV heparin drip -Pharmacy consulted to assist with Coumadin dosing -Monitor daily INR, currently 2.1, goal 2.5-3.5 Hypoxia: O2 sat into the upper 80s on 03/09/18, requiring simple mask with 6 L nasal cannula and now on 5 L. Does not appear to be significantly fluid overloaded. -chest x-ray reviewed, with no acute findings -ABG reviewed previously, grossly unremarkable -CT-PA reviewed, no PE, shows chronic interstitial changes, no acute infiltrates -Duo nebs as needed -Encourage incentive spirometry -Wean O2 as needed -discussed with case management, does not need walk test prior to discharge to SNF -Added saline nasal spray prn for congestion Hypertension/Hyperlipidemia: BP fairly well-controlled -Continue patient's HCTZ 50 mg, Toprol-XL 25 mg daily, Lasix 40 mg, Zetia 10mg daily -Monitor BP, adjust antihypertensives as needed Hypokalemiareplete and resume patient's home potassium GERD: Chronic -Continue PPI DVT prophylaxis: On Coumadin, bridging with IV heparin drip Discharge Planning Discharge pending therapeutic INR 2.5 to 3.5. Plan to discharge to [facility] when INR therapeutic. Problem Qualifiers (1) Ankle fracture, left: Qualified Codes: S82.892A - Other fracture of left lower leg, initial encounter for closed fracture (2) Trimalleolar fracture of left ankle: Qualified Codes: S82.852A - Displaced trimalleolar fracture of left lower leg, initial encounter for closed fracture Naomi Browne MD March 12, 2018 10:55
[2018-03-12] MEDS ORDERED: WARFARIN SOD 1 MG TAB PO ONE ×2 (11:00→16:00)
[2018-03-12] MEDS: ACETAMINOPHEN 325 MG TAB PO PRN (12:27)
[2018-03-12] MEDS: WARFARIN SOD 6 MG TAB PO SCH (15:16)
[2018-03-12] MEDS: WARFARIN SOD 1 MG TAB PO SCH (15:16)
[2018-03-12] MEDS: methylPREDNISolone SOD SUCC 40 MG/1 ML VIAL IV SCH ×2 (15:17→21:40)
[2018-03-12] MEDS: HEPARIN-D5W 25,000 U/250 ML 250 ML IV PRN (20:40)
--- NOTE | 2018-03-12 21:15 | MB ---
cc: Lisandro Penn MD, V J MD DATE: 03/12/2018 REASON FOR CONSULTATION: Hypoxemia. HISTORY OF PRESENT ILLNESS: This is a 77-year-old white male with a history of hypertension, hyperlipidemia, prior history of aortic valve replacement with a mechanical valve and has been on anticoagulation. The patient apparently tripped and fell this past week and suffered a fracture of the left ankle. He was brought to the emergency room and has been seen by orthopedics and underwent ORIF of the ankle fracture, which is now in a dressing and cast. The patient is also on oxygen, but apparently was hypoxic when he was weaned off the oxygen and now on O2 via nasal cannula at 4 liters, maintaining a saturation of 92%. His chest CT that was done earlier today shows status post sternotomy with aneurysmal dilatation of the ascending aorta, hepatic steatosis and calcification of the left kidney, but no other active infiltrates in the lung munoz. The patient, however, states that in the past he has had laryngeal surgery for a lesion and he had to have a tracheostomy placed, which was later reversed. He has chronic hoarseness from this procedure. He also has a history of chronic bronchitis and he has had a history of gastroesophageal reflux disease, as well as coronary artery disease and hypertension. He has obstructive sleep apnea and there is no history of diabetes. PAST SURGICAL HISTORY: Includes aortic valve replacement, history of ORIF of the right femoral fracture and now history of ORIF of left ankle trimalleolar fracture repair. MEDICATIONS 1. Prilosec 20 mg a day. 2. Toprol 25 mg daily. 3. HCTZ 50 mg daily. 4. Lasix 40 mg a day. 5. Zetia 10 mg a day. 6. Aspirin 81 mg daily. HABITS: The patient smoked 1 to 2 packs per day for over 25 years and then quit in 1982. Alcohol use, none recently. FAMILY HISTORY: Significant for hypertension, but both parents of old age. ALLERGIES: NONE LISTED. REVIEW OF SYSTEMS: The patient is overweight. He has chronic hoarseness. He has had cough and wheezing. He has epigastric distress. No nausea, vomiting. There is some leg swelling. Denies calf muscle pains. He has pains in his left ankle from recent surgery. Denies headaches or blackout spells. Denies depression or anxiety. PHYSICAL EXAMINATION: GENERAL: This is a moderately obese, elderly man who is in no acute distress. No pallor, no cyanosis, no clubbing, or peripheral edema. VITAL SIGNS: Blood pressure 130/60, pulse is 64, respirations 20, temperature 98.2. HEENT: Head is normocephalic. Pupils are reactive and equal. Tongue is moist. Throat is injected. Nasal mucosa is clear. NECK: Supple. No bruits. No venous distention. There is scar of previous surgery on the neck. No lymphadenopathy. CHEST: Equal movements with an increased AP diameter with diffuse wheezes bilaterally and occasional crackles at the right base. HEART: The heart sounds are regular S1 and S2. No murmur. No S3. ABDOMEN: Obese, protuberant without masses. No organomegaly or tenderness. Bowel sounds are active. EXTREMITIES: Decreased peripheral pulses. Left leg is in a cast and dressing and there is no edema noted. NEUROLOGIC: Reflexes are 1+ with no gross motor deficits. Cranial nerves grossly intact. SKIN: Warm and dry. ASSESSMENT: 1. Status post open reduction and internal fixation of left ankle fracture. 2. History of hypertension. 3. History of aortic valve replacement, on anticoagulation. 4. Probable underlying chronic obstructive pulmonary disease. 5. 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 PLAN: The patient will have a pulmonary function study done with flow volume loop. We will also get a CT of the neck and upper airway. We will get a blood gas study and continue with O2 at 3 liters and blood gases to be done on room air to see if he qualifies for home oxygen. We will place him on nebulized DuoNeb solution q.i.d. and also place him on Solu-Medrol 40 mg every 8 hours for 48 hours. A copy of his previous surgery on his neck records will be requested. We will continue with anticoagulation as ordered. I will review the pulmonary function tests and discuss the case with you, Dr. Rouse. Thanks for this consultation. V. Zunilda Penn MD VJD/ , 08:05 PM , 09:14 PM
--- NOTE | 2018-03-12 21:38 | RADRPT ---
EXAM DATE: 03/12/2018 9:31 PM EDT AGE/SEX: 77 years / Male INDICATIONS: Upper airway stenosis. CLINICAL DATA: This is the patient's initial encounter. Patient reports that signs and symptoms have been present for 1 day and indicates a pain score of 0/10. MEDICAL/SURGICAL HISTORY: Cardiovascular disease. Hypertension. . Aortic valve replacement. RADIATION DOSE: 13.79 CTDI (mGy) COMPARISON: No prior [place] exams available for comparison. TECHNIQUE: Helical acquisition was performed using a multirow detector CT scanner without contrast. Using automated exposure control and adjustment of the mA and/or kV according to patient size, radiat ion dose was kept as low as reasonably achievable to obtain optimal diagnostic quality images. FINDINGS: There is focal mucosal thickening in the sphenoid sinus. Visualized frontal sinus, ethmoid sinus and maxillary sinuses are clear. Mastoid air cells are clear. No acute bony abnormalities. Degenerative d isc disease in the cervical spine. No airway obstructing lesions are identified. Proximal trachea is patent. Glottis is symmetric. CONCLUSION: 1. No acute findings. No airway obstructing lesions or foreign bodies are seen. Electronically signed by: Román Sequeira MD 03/12/2018 9:37 PM EDT
[2018-03-13] VITALS: BP 134/63; PULSE 91; RESP 18; TEMP 98.2; O2SAT 94
[2018-03-13] MEDS: DEXT 5%-NACL 0.45% 1000 ML INJ 1,000 ML IV SCH ×3 (02:00→23:10)
[2018-03-13] MEDS: RESP: ALBUTEROL 2.5 MG/IPRATROPIUM 0.5 MG NEB (SCH) NEB ×4 (05:24→21:50)
[2018-03-13] MEDS: methylPREDNISolone SOD SUCC 40 MG/1 ML VIAL IV SCH ×3 (05:55→20:42)
[2018-03-13 07:22] LABS: INTERNATIONAL NORMALIZED RATIO 2.7 RATIO; PROTHROMBIN TIME - PATIENT 27.4 SEC (9.8-11.6)
[2018-03-13 08:00] VITALS: BP 139/65; PULSE 84; RESP 18; TEMP 98.2; O2SAT 94
[2018-03-13] MEDS: SODIUM CHLORIDE 0.9% FLUSH 10 ML FLUSH IV FLUSH SCH ×2 (09:00→21:00)
[2018-03-13] MEDS: HYDROCHLOROTHIAZIDE 50 MG TAB PO SCH (09:00)
[2018-03-13] MEDS: DOCUSATE SODIUM 50 MG/SENNA 8.6 MG TAB PO SCH ×2 (09:00→20:42)
[2018-03-13 09:29] VITALS: O2SAT 94
[2018-03-13] MEDS: POTASSIUM CHLORIDE 10 MEQ CONTROLLED RELEASE TAB PO SCH (09:46)
[2018-03-13] MEDS: guaiFENesin E.R. 600 MG TAB PO SCH ×2 (09:46→20:42)
[2018-03-13] MEDS: EZETIMIBE 10 MG TAB PO SCH (09:46)
[2018-03-13] MEDS: FUROSEMIDE 40 MG TAB PO SCH (09:46)
[2018-03-13] MEDS: PANTOPRAZOLE SOD 40 MG DELAYED RELEASE TAB PO SCH (09:46)
[2018-03-13] MEDS: METOPROLOL SUCCINATE 25 MG EXTENDED RELEASE TAB PO SCH (09:46)
[2018-03-13 10:23] LABS: BICARBONATE 25.2 MEQ/L (21.0-32.0); CALCIUM 9.2 MG/DL (8.5-10.1); CREATININE 1.57 MG/DL (0.60-1.30)
[2018-03-13 12:00] VITALS: BP 151/77; PULSE 97; RESP 16; TEMP 97.6; O2SAT 92
[2018-03-13] MEDS: WARFARIN SOD 6 MG TAB PO SCH (16:15)
[2018-03-13] MEDS: WARFARIN SOD 1 MG TAB PO SCH (16:16)
--- NOTE | 2018-03-13 17:36 | HHI.PR ---
Subjective Remarks 77-year-old male who presented with a left ankle fracture and had open reduction with internal fixation on March 06. He is eager to go home, his INR reached 2.7 today which he is aware of, and which is within his target range. His oxygen however is at 5 L and he still has some electrolyte imbalances. He states he feels fine and can walk with a walker. Objective Vitals Vital Signs Date Time Temp Pulse Resp B/P (MAP) Pulse Ox O2 Delivery O2 Flow Rate FiO2 03/13/18 16:59 03/13/18 12:00 97.6 97 16 151/77 (101) 92 03/13/18 11:30 03/13/18 10:46 Nasal Cannula 5.00 100 03/13/18 09:29 94 Nasal Cannula 5.00 03/13/18 08:00 98.2 84 18 139/65 (89) 94 03/13/18 00:00 98.2 91 18 134/63 (86) 94 03/12/18 20:55 98.2 86 18 131/57 (81) 93 03/12/18 20:24 94 Nasal Cannula 5.00 03/12/18 20:00 93 Nasal Cannula 5.00 Humidified I/O 03/12/18 03/12/18 03/12/18 03/13/18 03/13/18 03/13/18 07:00 15:00 23:00 07:00 15:00 23:00 Intake Total 1172 ml 1351 ml 743 ml 616 ml Output Total 300 ml 975 ml 600 ml Balance 872 ml 376 ml 743 ml 16 ml Intake Oral 480 ml 1200 ml 600 ml 600 ml IV Total 692 ml 151 ml 143 ml 16 ml Output Urine Total 300 ml 975 ml 600 ml # Voids 5 2 # Bowel Movements 0 0 Result Diagram: 03/12/18 0614 03/13/18 0759 Objective Remarks GENERAL: Well-nourished, well-developed patient. SKIN: Warm and dry. HEAD: Normocephalic. EYES: No scleral icterus. No injection or drainage. NECK: Supple, trachea midline. No JVD or lymphadenopathy. CARDIOVASCULAR: Regular rate and rhythm without murmurs, gallops, or rubs. RESPIRATORY: Breath sounds equal bilaterally. No accessory muscle use. GASTROINTESTINAL: Abdomen soft, non-tender, nondistended. EXTREMITIES: No cyanosis, or edema. Left ankle and soft cast NEUROLOGICAL: Awake, alert, and oriented x 3. Non-focal. Procedures 03/06/18 - Left ankle open reduction and internal fixation of trimalleolar fracture by Dr. Rm A/P Problem List: (1) Ankle fracture, left ICD Code: S82.892A - Other fracture of left lower leg, initial encounter for closed fracture Status: Acute (2) History of mechanical aortic valve replacement ICD Code: Z95.2 - History of mechanical aortic valve replacement Status: Acute (3) Hypertension ICD Code: I10 - Hypertension Status: Acute (4) Hyperlipidemia ICD Code: E78.5 - Hyperlipidemia Status: Acute (5) Fall ICD Code: W19.XXXA - Unspecified fall, initial encounter (6) Trimalleolar fracture of left ankle ICD Code: S82.852A - Displaced trimalleolar fracture of left lower leg, initial encounter for closed fracture Assessment and Plan 77-year-old male who presents to [facility] after mechanical fall with subsequent left ankle fracture. Left Ankle Trimalleolar Fracture with dislocation s/p mechanical fall and status post ORIF on 03/[address] Rm. Continue physical therapy, LLE nonweightbearing per ortho Continue pain control with Percocet as needed Plan for discharge to [facility] Mechanical AVR with subtherapeutic INR INR became therapeutic today at 2.7, goal between 2.5-3.5 Heparin drip stopped Hypoxia O2 sat into the upper 80s requiring 5 L nasal cannula to maintain above 90 Chest x-ray reviewed, with no acute findings, ABG normal, no PE on work up Oxygen walk test ordered, patient will likely fail Patient should have supplemental oxygen at home per pulmonology He has a pulmonology follow-up recommended for 2 weeks from now Appreciate pulmonology consult Hypertension Continue patient's HCTZ 50 mg, Toprol-XL 25 mg daily, Lasix 40 mg, Zetia 10mg daily Hypokalemia Supplemental dose of 20 mEq of potassium given this evening Hyponatremia Borderline, continue to monitor DVT prophylaxis Coumadin Discharge Planning Plan to discharge to [facility], likely tomorrow when oxygen is arranged and if electrolytes are near normal limits Problem Qualifiers (1) Ankle fracture, left: Qualified Codes: S82.892A - Other fracture of left lower leg, initial encounter for closed fracture (2) Trimalleolar fracture of left ankle: Qualified Codes: S82.852A - Displaced trimalleolar fracture of left lower leg, initial encounter for closed fracture Benny Granados MD March 13, 2018 17:36
--- NOTE | 2018-03-13 17:52 | HHI.PR ---
Subjective Remarks He is feeling better.On IV steroids. Off O2 sat 89. . C/O leg pain. Objective Vital Signs Date Time Temp Pulse Resp B/P (MAP) Pulse Ox O2 Delivery O2 Flow Rate FiO2 03/13/18 16:59 03/13/18 12:00 97.6 97 16 151/77 (101) 92 03/13/18 11:30 03/13/18 10:46 Nasal Cannula 5.00 100 03/13/18 09:29 94 Nasal Cannula 5.00 03/13/18 08:00 98.2 84 18 139/65 (89) 94 03/13/18 00:00 98.2 91 18 134/63 (86) 94 03/12/18 20:55 98.2 86 18 131/57 (81) 93 03/12/18 20:24 94 Nasal Cannula 5.00 03/12/18 20:00 93 Nasal Cannula 5.00 Humidified I/O 03/12/18 03/12/18 03/12/18 03/13/18 03/13/18 03/13/18 07:00 15:00 23:00 07:00 15:00 23:00 Intake Total 1172 ml 1351 ml 743 ml 616 ml Output Total 300 ml 975 ml 600 ml Balance 872 ml 376 ml 743 ml 16 ml Intake Oral 480 ml 1200 ml 600 ml 600 ml IV Total 692 ml 151 ml 143 ml 16 ml Output Urine Total 300 ml 975 ml 600 ml # Voids 5 2 # Bowel Movements 0 0 Result Diagram: 03/12/18 0614 03/13/18 0759 Objective Remarks GENERAL: This is a moderately obese, elderly man who is in no acute distress. No pallor, no cyanosis, no clubbing, or peripheral edema. HEENT: Head is normocephalic. Pupils are reactive and equal. Tongue is moist. Throat is clear. Nasal mucosa is clear. NECK: Supple. No bruits. No venous distention. There is scar of previous surgery on the neck. No lymphadenopathy. CHEST: Equal movements with an increased AP diameter with diffuse wheezes bilaterally and occasional crackles at the right base. HEART: The heart sounds are regular S1 and S2. No murmur. No S3. ABDOMEN: Obese, protuberant without masses. No organomegaly or tenderness. Bowel sounds are active. EXTREMITIES: Decreased peripheral pulses. Left leg is in a cast and dressing and there is no edema noted. NEUROLOGIC: Reflexes are 1+ with no gross motor deficits. Cranial nerves grossly intact. SKIN: Warm and dry. Assessment and Plan Assessment and Plan ASSESSMENT: 1. Status post open reduction and internal fixation of left ankle fracture. 2. History of hypertension. 3. History of aortic valve replacement, on anticoagulation. 4. Probable underlying chronic obstructive pulmonary disease. 5. 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 Plan : 1. O2 at 2 L. 2. Arrange home O2 if sat <88 on RA 3. Nebs qid , duoneb. 4. Continue solumedrol and taper dose 5. Ventolin HFA 2 puffs tid prn. 6. PFT on Thursday Lisandro Penn MD March 13, 2018 17:52
[2018-03-13] MEDS ORDERED: POTASSIUM CHLORIDE 20 MEQ CONTROLLED RELEASE TAB PO ONE (18:00)
[2018-03-13 20:00] VITALS: BP 145/70; PULSE 85; RESP 18; TEMP 97.6; O2SAT 96
[2018-03-13 21:50] VITALS: O2SAT 95
[2018-03-14] VITALS (9 sets, daily range): BP systolic 126–169; BP diastolic 60–83; PULSE 75–88; RESP 17–18; TEMP 97.3–98.6; O2SAT 92–95
[2018-03-14] MEDS: RESP: ALBUTEROL 2.5 MG/IPRATROPIUM 0.5 MG NEB (SCH) NEB ×4 (03:51→20:41)
[2018-03-14 05:59] LABS: HEMATOCRIT 34.9 % (39.0-51.0); HEMOGLOBIN 11.9 GM/DL (13.0-17.0); MEAN CELL VOLUME 90.2 FL (80.0-100.0); MEAN CORPUSCULAR HEMOGLOBIN 30.6 PG (27.0-34.0); MEAN PLATELET VOLUME 8.8 FL (7.0-11.0); PLATELET COUNT 341 TH/MM3 (150-450); RED BLOOD COUNT 3.87 MIL/MM3 (4.50-5.90); RED CELL DISTRIBUTION WIDTH 13.3 % (11.6-17.2); WHITE BLOOD COUNT 16.9 TH/MM3 (4.0-11.0)
[2018-03-14 06:17] LABS: CALCIUM 8.8 MG/DL (8.5-10.1); CREATININE 1.27 MG/DL (0.60-1.30)
[2018-03-14 06:21] LABS: INTERNATIONAL NORMALIZED RATIO 2.7 RATIO; PROTHROMBIN TIME - PATIENT 27.1 SEC (9.8-11.6)
[2018-03-14] MEDS: FUROSEMIDE 40 MG TAB PO SCH (08:25)
[2018-03-14] MEDS: guaiFENesin E.R. 600 MG TAB PO SCH ×2 (08:25→20:54)
[2018-03-14] MEDS: POTASSIUM CHLORIDE 10 MEQ CONTROLLED RELEASE TAB PO SCH (08:25)
[2018-03-14] MEDS: METOPROLOL SUCCINATE 25 MG EXTENDED RELEASE TAB PO SCH (08:25)
[2018-03-14] MEDS: methylPREDNISolone SOD SUCC 40 MG/1 ML VIAL IV SCH ×2 (08:26→20:54)
[2018-03-14] MEDS: DOCUSATE SODIUM 50 MG/SENNA 8.6 MG TAB PO SCH ×2 (08:26→20:54)
[2018-03-14] MEDS: PANTOPRAZOLE SOD 40 MG DELAYED RELEASE TAB PO SCH (08:26)
[2018-03-14] MEDS: HYDROCHLOROTHIAZIDE 50 MG TAB PO SCH (08:26)
[2018-03-14] MEDS: SODIUM CHLORIDE 0.9% FLUSH 10 ML FLUSH IV FLUSH SCH ×2 (08:26→20:54)
[2018-03-14] MEDS: EZETIMIBE 10 MG TAB PO SCH (08:27)
[2018-03-14] MEDS: DEXT 5%-NACL 0.45% 1000 ML INJ 1,000 ML IV SCH ×2 (08:28→17:54)
[2018-03-14] MEDS ORDERED: COUM1TAB PO (12:06)
[2018-03-14] MEDS ORDERED: OXYC1TAB63 PO (12:06)
[2018-03-14] MEDS ORDERED: MEDR4PAK PO (12:06)
[2018-03-14] MEDS ORDERED: COUM6TAB PO (12:06)
--- NOTE | 2018-03-14 12:08 | HHI.FF ---
Face to Face Verification Diagnosis: (1) Trimalleolar fracture of left ankle (2) COPD (chronic obstructive pulmonary disease) (3) Hypoxemia Physical Therapy Order: Evaluate and Treat Home Health Nursing Order: Medical education Signs/symptoms of disease process Nursing assessment with vital signs I have seen patient Benny Antonio Jr Allison on 03/14/18. My clinical findings support the need for the requested home health care services because: Ltd mobility - disease progression Patient has SOB Deconditioned w/ increased weakness Limited ability to care for self High risk of falls I certify that my clinical findings support that this patient is homebound because: Post-op weakness Hx COPD- exertion dyspnea/weakness Unsteady gait/balance Unsafe to leave home unassisted Unable to use public transportation Benny Granados MD March 14, 2018 12:08
--- NOTE | 2018-03-14 12:15 | HHI.DS ---
Discharge Summary Admission Date March 05, 2018 at 15:10 Discharge Date: March 14, 2018 Admitting Diagnosis L ankle fracture and dislocation (1) Ankle fracture, left ICD Code: S82.892A - Other fracture of left lower leg, initial encounter for closed fracture Status: Acute (2) History of mechanical aortic valve replacement ICD Code: Z95.2 - History of mechanical aortic valve replacement Status: Acute (3) Hypertension ICD Code: I10 - Hypertension Status: Acute (4) Hyperlipidemia ICD Code: E78.5 - Hyperlipidemia Status: Acute (5) Fall ICD Code: W19.XXXA - Unspecified fall, initial encounter (6) Trimalleolar fracture of left ankle ICD Code: S82.852A - Displaced trimalleolar fracture of left lower leg, initial encounter for closed fracture Procedures 03/06/18 - Left ankle open reduction and internal fixation of trimalleolar fracture by Dr. Rm Brief History - From Admission This is a 77-year-old male with past medical history significant for aortic valve replacement on Coumadin, hypertension, hyperlipidemia, CAD and GERD, presented to the ER after a fall. The patient states that he was walking his dog, tripped over his cane and fell. The patient denies any pain in his lower extremities, however he states that he when he tried to get up then he could not. The patient otherwise denies any chest pain, shortness of breath, fevers, chills, dysuria, nausea, vomiting, diarrhea, dizziness. Denies hitting his head or losing consciousness. CBC/BMP: 03/14/18 0520 03/14/18 0520 Significant Findings Laboratory Tests Test 03/11/18 20:23 03/11/18 21:15 03/12/18 06:14 03/12/18 15:05 Blood Gas HCO3 28 mmol/L (22-26) Blood Gas Base Excess 3.9 mmol/L (-2-2) Arterial Blood pH 7.47 (7.380-7.420) 7.45 (7.380-7.420) Blood Urea Nitrogen 34 MG/DL (7-18) 34 MG/DL (7-18) Creatinine 1.55 MG/DL (0.60-1.30) 1.33 MG/DL (0.60-1.30) Random Glucose 167 MG/DL (74-106) 140 MG/DL (74-106) Sodium Level 131 MEQ/L (136-145) 135 MEQ/L (136-145) Potassium Level 3.4 MEQ/L (3.5-5.1) 3.3 MEQ/L (3.5-5.1) Chloride Level 91 MEQ/L (98-107) 93 MEQ/L (98-107) Estimat Glomerular Filtration Rate 44 ML/MIN (>89) 52 ML/MIN (>89) White Blood Count 15.4 TH/MM3 (4.0-11.0) Red Blood Count 4.14 MIL/MM3 (4.50-5.90) Hemoglobin 12.3 GM/DL (13.0-17.0) Hematocrit 37.4 % (39.0-51.0) Neutrophils (%) (Auto) 82.6 % (16.0-70.0) Lymphocytes (%) (Auto) 8.9 % (9.0-44.0) Monocytes (%) (Auto) 8.2 % (0.0-8.0) Neutrophils # (Auto) 12.8 TH/MM3 (1.8-7.7) Monocytes # (Auto) 1.3 TH/MM3 (0-0.9) Prothrombin Time 21.0 SEC (9.8-11.6) Activated Partial Thromboplast Time 47.3 SEC (24.3-30.1) Albumin 3.1 GM/DL (3.4-5.0) Arterial Blood Partial Pressure CO2 36 mmHg (38-42) Test 03/13/18 06:22 03/13/18 07:59 03/13/18 12:20 03/14/18 05:20 Prothrombin Time 27.4 SEC (9.8-11.6) 27.1 SEC (9.8-11.6) Activated Partial Thromboplast Time 83.0 SEC (24.3-30.1) 43.4 SEC (24.3-30.1) 36.2 SEC (24.3-30.1) Blood Urea Nitrogen 45 MG/DL (7-18) 40 MG/DL (7-18) Creatinine 1.57 MG/DL (0.60-1.30) Random Glucose 241 MG/DL (74-106) 181 MG/DL (74-106) Sodium Level 132 MEQ/L (136-145) 135 MEQ/L (136-145) Potassium Level 3.3 MEQ/L (3.5-5.1) Chloride Level 93 MEQ/L (98-107) 95 MEQ/L (98-107) Estimat Glomerular Filtration Rate 43 ML/MIN (>89) 55 ML/MIN (>89) White Blood Count 16.9 TH/MM3 (4.0-11.0) Red Blood Count 3.87 MIL/MM3 (4.50-5.90) Hemoglobin 11.9 GM/DL (13.0-17.0) Hematocrit 34.9 % (39.0-51.0) PE at Discharge GENERAL: Well-nourished, well-developed patient. SKIN: Warm and dry. HEAD: Normocephalic. EYES: No scleral icterus. No injection or drainage. NECK: Supple, trachea midline. No JVD or lymphadenopathy. CARDIOVASCULAR: Regular rate and rhythm without murmurs, gallops, or rubs. RESPIRATORY: Breath sounds equal bilaterally. No accessory muscle use. GASTROINTESTINAL: Abdomen soft, non-tender, nondistended. EXTREMITIES: No cyanosis, or edema. Left ankle and soft cast NEUROLOGICAL: Awake, alert, and oriented x 3. Non-focal. Hospital Course This is a 77-year-old male with history of aortic valve replacement, coronary artery disease, hypertension who tripped and fell over his cane while walking his dog 10 days ago. He suffered a trimalleolar fracture to his left ankle which was repaired surgically by Dr. Gooden on 03/06/2018. He tolerated the surgery well, had some electrolyte imbalance issues over the last few days but overall feels well. He has had unimpressive participation with physical therapy and they have recommended that he goes to a rehab center. Patient however refuses to go to rehab center and requests that we send him home with home health care. I explained my opinion to the patient which includes a risk of fall at home, but he is fairly adamant about going home. He states that if he falls he will just pick himself up again. He has exhibited some signs of hypoxemia and has never been treated for COPD. He has a greater than 25 year pack history in the distant past, quit smoking in 1983. On oxygen walk test today he was able to pass at a level that dropped only to 92%. This is likely because of IV Solu-Medrol which is reducing any mild COPD flareup that he was unaware of. He will be sent home on a Medrol Dosepak. Home health care will be arranged prior to his departure. He has follow-up with orthopedics in 2 weeks and follow-up with pulmonology in 2 weeks. Pt Condition on Discharge: Fair Discharge Disposition: Disch w/ Home Health Serv Discharge Time: <= 30 minutes Discharge Instructions DIET: Follow Instructions for: As Tolerated, No Restrictions Activities you can perform: Toe Touch Weight Bearing Benny Granados MD March 14, 2018 12:15
[2018-03-14] MEDS ORDERED: WALKER/ADULT/FO1 MIS (12:18)
--- NOTE | 2018-03-14 15:47 | HHI.PR ---
Subjective Remarks He is feeling better.On IV steroids. Off O2 sat 94 .Will go to rehab this week. No need for home O2. PFT in am Objective Vital Signs Date Time Temp Pulse Resp B/P (MAP) Pulse Ox O2 Delivery O2 Flow Rate FiO2 03/14/18 12:00 97.3 88 17 150/64 (92) 92 03/14/18 09:43 95 Nasal Cannula 2.50 03/14/18 08:25 Humidified 03/14/18 08:00 97.3 75 17 169/83 (111) 95 03/14/18 04:45 97.7 80 18 126/61 (82) 95 03/14/18 03:52 95 Nasal Cannula 4.00 03/14/18 00:30 97.8 85 18 131/60 (83) 93 03/13/18 21:50 95 Nasal Cannula 5.00 03/13/18 20:00 97.6 85 18 145/70 (95) 96 03/13/18 19:50 96 Humidified 5.00 03/13/18 16:59 I/O 03/13/18 03/13/18 03/13/18 03/14/18 03/14/18 03/14/18 06:59 14:59 22:59 06:59 14:59 22:59 Intake Total 743 ml 616 ml 628 ml 480 ml Output Total 600 ml 400 ml 800 ml Balance 743 ml 16 ml 228 ml -320 ml Intake Oral 600 ml 600 ml 600 ml 480 ml IV Total 143 ml 16 ml 28 ml Output Urine Total 600 ml 400 ml 800 ml # Voids 5 2 2 # Bowel Movements 0 0 2 Result Diagram: 03/14/18 0503/14/18 05 Objective Remarks GENERAL: This is a moderately obese, elderly man who is in no acute distress. No pallor, no cyanosis, no clubbing, or peripheral edema. HEENT: Head is normocephalic. Pupils are reactive and equal. Tongue is moist. Throat is clear. Nasal mucosa is clear. NECK: Supple. No bruits. No venous distention. There is scar of previous surgery on the neck. No lymphadenopathy. CHEST: Equal movements with an increased AP diameter with diffuse wheezes bilaterally .Decreased breath sounds. HEART: The heart sounds are regular S1 and S2. No murmur. No S3. ABDOMEN: Obese, protuberant without masses. No organomegaly or tenderness. Bowel sounds are active. EXTREMITIES: Decreased peripheral pulses. Left leg is in a cast and dressing and there is no edema noted. NEUROLOGIC: Reflexes are 1+ with no gross motor deficits. Cranial nerves grossly intact. SKIN: Warm and dry. Assessment and Plan Assessment and Plan ASSESSMENT: 1. Status post open reduction and internal fixation of left ankle fracture. 2. History of hypertension. 3. History of aortic valve replacement, on anticoagulation. 4. Probable underlying chronic obstructive pulmonary disease. 5. 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 Plan : 1. D/C o2 if sat >92 on RA 2. Will get home O2 sat test at HS 3. Nebs qid , duoneb. 4. D/C solumedrol and add Prednisone PO 5. Ventolin HFA 2 puffs tid prn. 6. PFT on Thursday 7. To rehab anytime. Lisandro Penn MD March 14, 2018 15:47
[2018-03-14] MEDS: WARFARIN SOD 6 MG TAB PO SCH (15:59)
[2018-03-14] MEDS: WARFARIN SOD 1 MG TAB PO SCH (16:00)
[2018-03-15 00:15] VITALS: BP 148/71; PULSE 88; RESP 17; TEMP 98.3; O2SAT 92
[2018-03-15 03:26] VITALS: O2SAT 94
[2018-03-15] MEDS: RESP: ALBUTEROL 2.5 MG/IPRATROPIUM 0.5 MG NEB (SCH) NEB ×2 (03:26→11:41)
[2018-03-15] MEDS: DEXT 5%-NACL 0.45% 1000 ML INJ 1,000 ML IV SCH ×3 (04:00→21:46)
[2018-03-15 06:56] LABS: HEMATOCRIT 34.7 % (39.0-51.0); HEMOGLOBIN 11.7 GM/DL (13.0-17.0); MEAN CELL VOLUME 89.9 FL (80.0-100.0); MEAN CORPUSCULAR HEMOGLOBIN 30.3 PG (27.0-34.0); MEAN CORPUSCULAR HGB CONC 33.8 % (32.0-36.0); MEAN PLATELET VOLUME 8.7 FL (7.0-11.0); PLATELET COUNT 358 TH/MM3 (150-450); RED BLOOD COUNT 3.86 MIL/MM3 (4.50-5.90); RED CELL DISTRIBUTION WIDTH 13.4 % (11.6-17.2); WHITE BLOOD COUNT 18.6 TH/MM3 (4.0-11.0)
[2018-03-15 07:01] LABS: INTERNATIONAL NORMALIZED RATIO 2.6 RATIO; PROTHROMBIN TIME - PATIENT 26.3 SEC (9.8-11.6)
[2018-03-15] MEDS: ACETAMINOPHEN 325 MG TAB PO PRN ×2 (07:20→12:17)
[2018-03-15] MEDS: guaiFENesin E.R. 600 MG TAB PO SCH ×2 (07:21→21:44)
[2018-03-15] MEDS: POTASSIUM CHLORIDE 10 MEQ CONTROLLED RELEASE TAB PO SCH (07:21)
[2018-03-15] MEDS: EZETIMIBE 10 MG TAB PO SCH (07:21)
[2018-03-15] MEDS: FUROSEMIDE 40 MG TAB PO SCH (07:21)
[2018-03-15] MEDS: HYDROCHLOROTHIAZIDE 50 MG TAB PO SCH (07:22)
[2018-03-15] MEDS: METOPROLOL SUCCINATE 25 MG EXTENDED RELEASE TAB PO SCH (07:22)
[2018-03-15] MEDS: methylPREDNISolone SOD SUCC 40 MG/1 ML VIAL IV SCH (07:22)
[2018-03-15] MEDS: PANTOPRAZOLE SOD 40 MG DELAYED RELEASE TAB PO SCH (07:22)
[2018-03-15] MEDS: SODIUM CHLORIDE 0.9% FLUSH 10 ML FLUSH IV FLUSH SCH ×2 (07:22→21:00)
[2018-03-15] MEDS: DOCUSATE SODIUM 50 MG/SENNA 8.6 MG TAB PO SCH ×2 (07:24→21:44)
[2018-03-15 08:00] VITALS: BP 160/73; PULSE 66; RESP 20; TEMP 97.7; O2SAT 94
[2018-03-15 12:00] VITALS: BP 153/70; PULSE 82; RESP 20; TEMP 97.9; O2SAT 94
--- NOTE | 2018-03-15 13:19 | ECHRPT ---
Indication: CONCLUSIONS Normal left ventricular size. Mild concentric left ventricular hypertrophy. The left ventricle is not well visualized. Doppler parameters are consistent with impaired left ventricular relaxtion (grade 1 diastolic dysfun ction). The interatrial septum not well visualized. The aortic root and proximal ascending aorta are not well visualized. The mitral valve is not well visualized. Mild mitral annular calcification. Trace mitral valve regurgitation. The aortic valve is not well visualized. Mechanical aortic valve prosthesis. Trace aortic valve regurgitation. Moderate to severe aortic valve stenosis. Aortic valve area is 1.6 cm. Aortic valve mean gradient is 47 mmHg. Peak Velocity 4.28 cm/s. There is trace tricuspid valve regurgitation. Pulmonary arterial systolic pressure could not be estimated due to an insufficient tricuspid valve regurgitation doppler jet for measurement. The left ventricular systolic function is normal with an estimated ejection fraction in the range of 60-65%. BP: 149 / 65 HR: Rhythm: MEASUREMENTS (Male / Female) Normal Values Technical Quality: 2D ECHO LV Diastolic Diameter PLAX 5.3 cm 4.2 - 5.9 / 3.9 - 5.3 cm LV Systolic Diameter PLAX 3.4 cm IVS Diastolic Thickness 1.4 cm 0.6 - 1.0 / 0.6 - 0.9 cm LVPW Diastolic Thickness 1.4 cm 0.6 - 1.0 / 0.6 - 0.9 cm LV Relative Wall Thickness 0.5 RV Internal Dim ED PLAX 2.3 cm LVOT Diameter 2.8 cm Aortic Root Diameter 3.7 cm LA Systolic Diameter LX 3.4 cm 3.0 - 4.0 / 2.7 - 3.8 cm DOPPLER AV Peak Velocity 470.0 cm/s AV Peak Gradient 88.4 mmHg AV Mean Gradient 47.0 mmHg AV Velocity Time Integral 91.9 cm LVOT Peak Velocity 126.0 cm/s LVOT Peak Gradient 6.4 mmHg LVOT Velocity Time Integral 23.9 cm AV Area Cont Eq vti 1.6 cm AV Area Cont Eq pk 1.7 cm Mitral E Point Velocity 75.7 cm/s Mitral A Point Velocity 132.0 cm/s Mitral E to A Ratio 0.6 TR Peak Velocity 308.0 cm/s TR Peak Gradient 37.9 mmHg Right Atrial Pressure 10.0 mmHg Pulmonary Artery Systolic Pressu 47.9 mmHg Right Ventricular Systolic Press 47.9 mmHg PV Peak Velocity 96.3 cm/s PV Peak Gradient 3.7 mmHg FINDINGS LEFT VENTRICLE Normal left ventricular size. Mild concentric left ventricular hypertrophy. The left ventricular systolic function is normal with an estimated ejection fraction in the range of 60-65%. The left ventricle is not well visualized. Doppler parameters are consistent with impaired left ventricular relaxtion (grade 1 diastolic dysfun ction). RIGHT VENTRICLE Normal right ventricular size and systolic function. LEFT ATRIUM The left atrial size is normal. RIGHT ATRIUM The right atrial size is normal. ATRIAL SEPTUM The interatrial septum not well visualized. Normal atrial septal thickness without atrial level shunting by limited color doppler interrogation. AORTA The aortic root and proximal ascending aorta are not well visualized. The aortic root and proximal ascending aorta are normal in size on limited imaging. MITRAL VALVE Structurally normal mitral valve. The mitral valve is not well visualized. Mild mitral annular calcification. Trace mitral valve regurgitation. AORTIC VALVE The aortic valve is not well visualized. Mechanical aortic valve prosthesis. Trace aortic valve regurgitation. Moderate to severe aortic valve stenosis. Aortic valve area is 1.6 cm. Aortic valve mean gradient is 47 mmHg. Peak Velocity 4.28 cm/s. TRICUSPID VALVE Structurally normal tricuspid valve. There is trace tricuspid valve regurgitation. Pulmonary arterial systolic pressure could not be estimated due to an insufficient tricuspid valve regurgitation doppler jet for measurement. PULMONARY VALVE No pulmonary valve regurgitation or stenosis. VESSELS The inferior vena cava is normal in size. PERICARDIUM No pericardial effusion. Jarvis Grijalva MD, FACC (Electronically Signed) Final Date:15 Mar 2018 13:17 Amended: 15 Mar 2018 13:22
--- NOTE | 2018-03-15 15:06 | HHI.PR ---
Subjective Remarks Following discharge orders yesterday patient decided to listen to his and go to a rehab center for ongoing therapy. His only complaint today is that he would like his bilateral antecubital IVs removed. Objective Vitals Vital Signs Date Time Temp Pulse Resp B/P (MAP) Pulse Ox O2 Delivery O2 Flow Rate FiO2 03/15/18 13:22 18 03/15/18 08:00 97.7 66 20 160/73 (102) 94 03/15/18 03:26 94 21 03/15/18 00:15 98.3 88 17 148/71 (96) 92 03/14/18 21:00 97.5 80 17 156/70 (98) 94 03/14/18 20:41 93 21 03/14/18 16:00 98.6 86 17 128/68 (88) 92 I/O 03/14/18 03/14/18 03/14/18 03/15/18 03/15/18 03/15/18 06:59 14:59 22:59 06:59 14:59 22:59 Intake Total 480 ml 480 ml 480 ml Output Total 800 ml 600 ml Balance -320 ml -120 ml 480 ml Intake Oral 480 ml 480 ml 480 ml Output Urine Total 800 ml 600 ml # Voids 5 4 # Bowel Movements 0 2 0 Result Diagram: 03/15/18 0600 03/14/18 0520 Objective Remarks GENERAL: Well-nourished, well-developed patient. SKIN: Warm and dry. HEAD: Normocephalic. EYES: No scleral icterus. No injection or drainage. NECK: Supple, trachea midline. No JVD or lymphadenopathy. CARDIOVASCULAR: Regular rate and rhythm without murmurs, gallops, or rubs. RESPIRATORY: Breath sounds equal bilaterally. No accessory muscle use. GASTROINTESTINAL: Abdomen soft, non-tender, nondistended. EXTREMITIES: No cyanosis, or edema. Left ankle and soft cast NEUROLOGICAL: Awake, alert, and oriented x 3. Non-focal. Procedures 03/06/18 - Left ankle open reduction and internal fixation of trimalleolar fracture by Dr. Rm A/P Problem List: (1) Ankle fracture, left ICD Code: S82.892A - Other fracture of left lower leg, initial encounter for closed fracture Status: Acute (2) History of mechanical aortic valve replacement ICD Code: Z95.2 - History of mechanical aortic valve replacement Status: Acute (3) Hypertension ICD Code: I10 - Hypertension Status: Acute (4) Hyperlipidemia ICD Code: E78.5 - Hyperlipidemia Status: Acute (5) Fall ICD Code: W19.XXXA - Unspecified fall, initial encounter (6) Trimalleolar fracture of left ankle ICD Code: S82.852A - Displaced trimalleolar fracture of left lower leg, initial encounter for closed fracture Assessment and Plan 77-year-old male who presents to [facility] after mechanical fall with subsequent left ankle fracture. Left Ankle Trimalleolar Fracture with dislocation s/p mechanical fall and status post ORIF on 03/[address] Rm. Continue physical therapy, LLE nonweightbearing per ortho Continue pain control with Percocet as needed Plan for discharge to [facility] rehab tomorrow Mechanical AVR with subtherapeutic INR INR remains stable within therapeutic range of 2.5-3.5 Echocardiogram today revealed some dysfunction in his aortic valve replacement He is going to be evaluated by cardiology for TAVR candidacy Hypoxia, COPD Patient was placed on Solu-Medrol IV and managed to pass an oxygen walk test Underlying problem is COPD He has a pulmonology follow-up recommended for 2 weeks from now Appreciate pulmonology consult Hypertension Continue patient's HCTZ 50 mg, Toprol-XL 25 mg daily, Lasix 40 mg, Zetia 10mg daily Hypokalemia Supplemental dose of 20 mEq of potassium given this evening Hyponatremia Borderline, continue to monitor DVT prophylaxis Coumadin Discharge Planning Plan to discharge to [facility] tomorrow after seen by cardiology Problem Qualifiers (1) Ankle fracture, left: Qualified Codes: S82.892A - Other fracture of left lower leg, initial encounter for closed fracture (2) Fall: Qualified Codes: W19.XXXS - Unspecified fall, sequela (3) Trimalleolar fracture of left ankle: Qualified Codes: S82.852A - Displaced trimalleolar fracture of left lower leg, initial encounter for closed fracture Benny Granados MD March 15, 2018 15:06
[2018-03-15] MEDS: WARFARIN SOD 1 MG TAB PO SCH (15:33)
[2018-03-15] MEDS: WARFARIN SOD 6 MG TAB PO SCH (15:33)
[2018-03-15 16:00] VITALS: BP 146/70; PULSE 82; RESP 20; TEMP 97.7; O2SAT 93
--- NOTE | 2018-03-15 16:01 | HHI.PR ---
Subjective Remarks He is better. Off O2 sat 96 .Will go to rehab this week. No need for home O2. Objective Vital Signs Date Time Temp Pulse Resp B/P (MAP) Pulse Ox O2 Delivery O2 Flow Rate FiO2 03/15/18 13:22 18 03/15/18 12:00 97.9 82 20 153/70 (97) 94 03/15/18 08:00 97.7 66 20 160/73 (102) 94 03/15/18 03:26 94 21 03/15/18 00:15 98.3 88 17 148/71 (96) 92 03/14/18 21:00 97.5 80 17 156/70 (98) 94 03/14/18 20:41 93 21 I/O 03/14/18 03/14/18 03/14/18 03/15/18 03/15/18 03/15/18 07:00 15:00 23:00 07:00 15:00 23:00 Intake Total 480 ml 480 ml 480 ml Output Total 800 ml 600 ml Balance -320 ml -120 ml 480 ml Intake Oral 480 ml 480 ml 480 ml Output Urine Total 800 ml 600 ml # Voids 5 4 # Bowel Movements 0 2 0 Result Diagram: 03/15/18 0600 03/14/18 0520 Objective Remarks GENERAL: This is a moderately obese, elderly man who is in no acute distress. No pallor, no cyanosis, no clubbing, or peripheral edema. HEENT: Head is normocephalic. Pupils are reactive and equal. Tongue is moist. Throat is clear. Nasal mucosa is clear. NECK: Supple. No bruits. No venous distention. There is scar of previous surgery on the neck. No lymphadenopathy. CHEST: Equal movements with an increased AP diameter with Decreased breath sounds. HEART: The heart sounds are regular S1 and S2. No murmur. No S3. ABDOMEN: Obese, protuberant without masses. No organomegaly or tenderness. Bowel sounds are active. EXTREMITIES: Decreased peripheral pulses. Left leg is in a cast and dressing and there is no edema noted. NEUROLOGIC: Reflexes are 1+ with no gross motor deficits. Cranial nerves grossly intact. SKIN: Warm and dry. Assessment and Plan Assessment and Plan ASSESSMENT: 1. Status post open reduction and internal fixation of left ankle fracture. 2. History of hypertension. 3. History of aortic valve replacement, on anticoagulation. 4. Probable underlying chronic obstructive pulmonary disease. 5. 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 Plan : 1. D/C o2 2. Will get home O2 sat test at HS 3. D/C Nebs 4. Prednisone PO 1o mg daily X7 5. Ventolin HFA 2 puffs tid prn. 6. IS q3h. 7. To rehab anytime. Lisandro Penn MD March 15, 2018 16:01
[2018-03-15 19:20] VITALS: BP 143/71; PULSE 89; RESP 18; TEMP 98.3; O2SAT 93
[2018-03-15] MEDS: predniSONE 20 MG TAB PO SCH (21:44)
[2018-03-16] VITALS: BP 132/68; PULSE 81; RESP 18; TEMP 97.4; O2SAT 93
[2018-03-16] MEDS: ACETAMINOPHEN 325 MG TAB PO PRN ×2 (02:50→08:32)
[2018-03-16 06:19] LABS: INTERNATIONAL NORMALIZED RATIO 2.7 RATIO; PROTHROMBIN TIME - PATIENT 27.4 SEC (9.8-11.6)
--- NOTE | 2018-03-16 07:42 | PD.CONS ---
HPI Consult Requested By Primary Care Physician [facility] History of Present Illness 77-year-old male with past medical history of mechanical aortic valve replacement, HTN, HLD, GERD, COPD who presented after left ankle fracture. During admission the patient was noted to be hypoxic, however he denies having any shortness of breath, regardless an echocardiogram was checked which showed mechanical aVR with valve area 1.6 cm, mean gradient 47 mmHg, peak velocity 4.28 cm/s and for this we are consulted. He reports history of valve replacement in 2001 and this is followed by the [place]. He states the [facility] meat team lead knows about the valve stenosis and is following. He was seen by pulmonology and treated for COPD exacerbation. Most recent chest CT 03/12 did not show any evidence of volume overload. He denies any chest pain, shortness breath, orthopnea, lower extremity swelling, or palpitations. (Ashwin Laguerre) Review of Systems Negative except as stated in HPI (Ashwin Laguerre) Past Family Social History Allergies: Coded Allergies: No Known Allergies (Verified , MRI CONVERSION, 04/19/17) Past Medical History Mechanical aortic valve replacement Hypertension Hyperlipidemia GERD Past Surgical History Mechanical aortic valve replacement 2001 ORIF right femoral fracture Left ankle fracture repair Reported Medications Reported Meds & Active Scripts Active Medrol Dosepak (Methylprednisolone) 4 Mg Dspk 4 Mg PO DIRECTED Per Pharmacist direction Oxycodone-Acetaminophen 5-325 (Oxycodone HCl/Acetaminophen) 5 Mg-325 Mg Tablet 1 Tab PO Q6HR PRN 10 Days Coumadin (Warfarin) 6 Mg Tab 6 Mg PO DAILY@1600 30 Days Coumadin (Warfarin) 1 Mg Tab 1 Mg PO DAILY@1600 30 Days Reported Coumadin (Warfarin) 7.5 Mg Tab 7.5 Mg PO THURSDAY Coumadin (Warfarin) 5 Mg Tab 5 Mg PO DAILY Patient takes 7.5 mg every Thursday then 5 mg , Thu, , Thu, Thu, Sun Klor-Con 10 (Potassium Chloride) 10 Meq Tab 10 Meq PO DAILY Prilosec (Omeprazole Magnesium) 20 Mg Tab Toprol XL (Metoprolol Succinate) 25 Mg Tab 25 Mg PO DAILY Hydrochlorothiazide 50 Mg Tab 50 Mg PO DAILY Lasix (Furosemide) 40 Mg Tab 40 Mg PO DAILY Zetia (Ezetimibe) 10 Mg Tab 10 Mg PO DAILY Aspirin 81 Mg Chew 81 Mg CHEW DAILY Active Ordered Medications Current Medications Medications (Trade) Dose Ordered Sig/Bertha Route Start Time Stop Time Status Last Admin (Zetia) 10 mg DAILY PO 03/06/18 09:00 03/15/18 07:21 (Lasix) 40 mg DAILY PO 03/06/18 09:00 03/15/18 07:21 (Hydrodiuril) 50 mg DAILY PO 03/06/18 09:00 03/15/18 07:22 (Toprol Xl) 25 mg DAILY PO 03/06/18 09:00 03/15/18 07:22 (NS Flush) 2 ml UNSCH PRN IV FLUSH 03/05/18 15:45 (NS Flush) 2 ml BID IV FLUSH 03/05/18 21:00 03/15/18 07:22 (Tylenol) 650 mg Q4H PRN PO 03/05/18 15:45 03/16/18 02:50 (Ambien) 5 mg HS PRN PO 03/05/18 15:45 (Narcan Inj) 0.4 mg UNSCH PRN IV PUSH 03/05/18 15:45 (Kaylen-Colace) 1 tab BID PO 03/05/18 21:00 03/15/18 21:44 (Milk Of Magnesia Liq) 30 ml Q12H PRN PO 03/05/18 15:45 (Senokot) 17.2 mg Q12H PRN PO 03/05/18 15:45 (Dulcolax Supp) 10 mg DAILY PRN RECTAL 03/05/18 15:45 (Lactulose Liq) 30 ml DAILY PRN PO 03/05/18 15:45 (Zofran Odt) 4 mg Q4H PRN PO 03/05/18 15:45 03/10/18 15:31 Dextrose/Sodium Chloride 1,000 ml @ 100 mls/hr Q10H IV 03/06/18 10:00 03/14/18 08:28 ([facility]) UNSCH PRN XX 03/06/18 09:45 (Percocet 5-325 Mg) 1 tab Q4H PRN PO 03/06/18 09:45 (Benadryl) 25 mg Q6H PRN PO 03/06/18 09:45 Pharmacy Profile Note 0 ml @ 0 mls/hr UNSCH OTHER 03/06/18 17:15 (Coumadin) 6 mg DAILY@1600 PO 03/10/18 16:00 03/15/18 15:33 ([facility] [place]) 2 spray Q4H PRN EACH NARE 03/10/18 15:00 03/11/18 20:33 (Duoneb Neb) 1 ampule Q4HR NEB PRN NEB 03/11/18 11:45 (Mucinex Er) 1,200 mg BID PO 03/11/18 11:45 03/15/18 21:44 (Protonix) 40 mg DAILY PO 03/12/18 09:00 03/15/18 07:22 (KCl) 10 meq DAILY PO 03/13/18 09:00 03/15/18 07:21 (Coumadin) 1 mg DAILY@1600 PO 03/12/18 16:00 03/15/18 15:33 (Deltasone) 50 mg DAILY PO 03/16/18 09:00 (Deltasone) 10 mg BID PO 03/15/18 21:00 03/15/18 21:44 (Spiriva Inh) 18 mcg DAILY INH 03/16/18 09:00 Family History Denies family history of diabetes, cancer or heart disease. States his parents from old age. Social History The patient is a former smoker. He quit in 1982. Denies alcohol intake. Denies illicit drug use. (Ashwin Laguerre) Physical Exam Vital Signs Vital Signs Date Time Temp Pulse Resp B/P (MAP) Pulse Ox O2 Delivery O2 Flow Rate FiO2 03/16/18 00:00 97.4 81 18 132/68 (89) 93 03/15/18 19:20 98.3 89 18 143/71 (95) 93 03/15/18 16:00 97.7 82 20 146/70 (95) 93 03/15/18 13:22 18 03/15/18 12:00 97.9 82 20 153/70 (97) 94 03/15/18 08:00 97.7 66 20 160/73 (102) 94 Physical Exam GENERAL: Well-developed well-nourished. In no acute distress. NECK: No carotid bruits. No JVD. CARDIOVASCULAR: Regular rate and rhythm. 2/6 mechanical murmur appreciated. RESPIRATORY: No accessory muscle use. Clear to auscultation. Breath sounds equal bilaterally. MUSCULOSKELETAL: No clubbing or cyanosis. No edema. NEUROLOGICAL: Awake and alert. Normal speech. Laboratory Laboratory Tests Test 03/16/18 05:12 03/16/18 05:13 Prothrombin Time 27.4 Prothromb Time International Ratio 2.7 Activated Partial Thromboplast Time 30.0 (Ashwin Laguerre) Result Diagram: 03/15/18 0600 03/14/18 0520 Imaging Last Impressions Neck CT 03/12/18 0000 Signed Impressions: CONCLUSION: 1. No acute findings. No airway obstructing lesions or foreign bodies are seen . Chest CT 03/12/18 0000 Signed Impressions: CONCLUSION: 1. Status post sternotomy and aortic valve replacement. There is aneurysmal di latation of the ascending aorta. 2. Hepatic steatosis. 3. Mild hiatal hernia. 4. Calcifications in the superior left kidney related to either nonobstructing stones or cortical calcifications. Chest X-Ray 03/11/18 0000 Signed Impressions: CONCLUSION: No acute cardiopulmonary disease. CT Angiography 03/09/18 0000 Signed Impressions: CONCLUSION: 1. No definite PE is demonstrated. 2. Chronic interstitial changes are seen bilaterally. No acute pulmonary infilt rates. Ankle X-Ray 03/06/18 0000 Signed Impressions: Service Date/Time: Tuesday, March 06, 2018 08:38 - CONCLUSION: 1. Left ankle ORIF, as above. Brody Wright MD Tibia/Fibula X-Ray 03/05/18 1027 Signed Impressions: Service Date/Time: Monday, March 05, 2018 10:48 - CONCLUSION: Tibial and fibular fractures with soft tissue swelling and deformity at the ankle. Eriberto Ramon MD Knee X-Ray 03/05/18 1027 Signed Impressions: Service Date/Time: Monday, March 05, 2018 10:53 - CONCLUSION: Unremarkable limited examination of the left knee. Eriberto Ramon MD Foot X-Ray 03/05/18 1027 Signed Impressions: Service Date/Time: Monday, March 05, 2018 10:56 - CONCLUSION: Fracture dislocation at the ankle. Eriberto Ramon MD (Ashwin Laguerre) Assessment and Plan Assessment and Plan 77-year-old male with past medical history of mechanical aortic valve replacement, HTN, HLD, GERD, COPD who presented after left ankle fracture. During admission the patient was noted to be hypoxic, however he denies having any shortness of breath, regardless an echocardiogram was checked which showed mechanical aVR with valve area 1.6 cm, mean gradient 47 mmHg, peak velocity 4.28 cm/s and for this we are consulted History of aortic valve replacement: Aortic valve prosthesis velocities suggest a moderate to severe stenosis, however patient is asymptomatic. Patient can follow-up with Dr. Grijalva as outpatient for TAVR eval after discharge. Continue warfarin for anticoagulation. Discussed Condition With Patient, Dr. Grijalva (Ahswin Laguerre) Assessment and Plan no symptoms of SOB or CP mechanical AV - therefore not TAVR candidate plan for FU with [facility] if develops symptoms, would require repeat open heart surgery guideline directed medical therapy will sign off call with questions (Jarvis Grijalva MD) Ashwin Laguerre March 16, 2018 07:42 Jarvis Grijalva MD March 16, 2018 09:44
[2018-03-16 08:00] VITALS: BP 126/60; PULSE 82; RESP 20; TEMP 97.6; O2SAT 94
[2018-03-16] MEDS: FUROSEMIDE 40 MG TAB PO SCH (08:32)
[2018-03-16] MEDS: METOPROLOL SUCCINATE 25 MG EXTENDED RELEASE TAB PO SCH (08:32)
[2018-03-16] MEDS: HYDROCHLOROTHIAZIDE 50 MG TAB PO SCH (08:32)
[2018-03-16] MEDS: PANTOPRAZOLE SOD 40 MG DELAYED RELEASE TAB PO SCH (08:33)
[2018-03-16] MEDS: predniSONE 20 MG TAB PO SCH (08:33)
[2018-03-16] MEDS: POTASSIUM CHLORIDE 10 MEQ CONTROLLED RELEASE TAB PO SCH (08:33)
[2018-03-16] MEDS: guaiFENesin E.R. 600 MG TAB PO SCH (08:33)
[2018-03-16] MEDS: EZETIMIBE 10 MG TAB PO SCH (08:33)
[2018-03-16] MEDS: DOCUSATE SODIUM 50 MG/SENNA 8.6 MG TAB PO SCH (08:34)
[2018-03-16] MEDS: SODIUM CHLORIDE 0.9% FLUSH 10 ML FLUSH IV FLUSH SCH (08:34)
[2018-03-16] MEDS ORDERED: predniSONE 50 MG TAB PO SCH (09:00)
[2018-03-16] MEDS ORDERED: TIOTROPIUM BROMIDE 18 MCG INH INH SCH (09:00)
--- NOTE | 2018-03-16 09:40 | HHI.PR ---
Subjective Remarks Patient reports no complaints. Pain control. Ready to go to rehab. No other complaint of chest pain or shortness of breath or palpitations. Objective Vitals Vital Signs Date Time Temp Pulse Resp B/P (MAP) Pulse Ox O2 Delivery O2 Flow Rate FiO2 03/16/18 08:00 97.6 82 20 126/60 (82) 94 03/16/18 00:00 97.4 81 18 132/68 (89) 93 03/15/18 19:20 98.3 89 18 143/71 (95) 93 03/15/18 16:00 97.7 82 20 146/70 (95) 93 03/15/18 13:22 18 03/15/18 12:00 97.9 82 20 153/70 (97) 94 I/O 03/15/18 03/15/18 03/15/18 03/16/18 03/16/18 03/16/18 07:00 15:00 23:00 07:00 15:00 23:00 Intake Total 480 ml 720 ml 360 ml Balance 480 ml 720 ml 360 ml Intake Oral 480 ml 720 ml 360 ml # Voids 4 3 2 # Bowel Movements 0 2 1 Result Diagram: 03/15/18 0600 03/14/18 0520 Other Results Item Value Date Time Prothromb Time International Ratio 2.7 RATIO 03/16/18 0512 Objective Remarks GENERAL: This is a well-nourished, obese, well-developed patient, in no apparent distress. CARDIOVASCULAR: Regular rate and rhythm with a 2 out of 6 murmur RESPIRATORY: Relatively clear to auscultation. GASTROINTESTINAL: Abdomen soft, obese, non-tender, nondistended. Normal active bowel sounds MUSCULOSKELETAL: Extremities without clubbing, cyanosis, with trace edema left ankle clean dry and intact. NEURO: Alert & Oriented x4 to person, place, time, situation. Moves all ext x4 Procedures 03/06/18 - Left ankle open reduction and internal fixation of trimalleolar fracture by Dr. Rm A/P Problem List: (1) Ankle fracture, left ICD Code: S82.892A - Other fracture of left lower leg, initial encounter for closed fracture Status: Acute (2) History of mechanical aortic valve replacement ICD Code: Z95.2 - History of mechanical aortic valve replacement Status: Chronic (3) Hypertension ICD Code: I10 - Hypertension Status: Chronic (4) Hyperlipidemia ICD Code: E78.5 - Hyperlipidemia Status: Chronic (5) Fall ICD Code: W19.XXXA - Unspecified fall, initial encounter Status: Acute (6) Trimalleolar fracture of left ankle ICD Code: S82.852A - Displaced trimalleolar fracture of left lower leg, initial encounter for closed fracture (7) Aortic valvar stenosis ICD Code: I35.0 - Nonrheumatic aortic (valve) stenosis Status: Acute Assessment and Plan 77-year-old male with past medical history of CAD, hypertension, hyperlipidemia , mechanical AVR anticoagulated with Coumadin, GERD who presents to [place] after mechanical fall with subsequent left ankle fracture. Left Ankle Trimalleolar Fracture with dislocation: s/p mechanical fall and status post ORIF on 03/[address] Rm. -Continue pain control with Percocet as needed -Continue physical therapy, LLE nonweightbearing per ortho -Plan for discharge to [facility] today Mechanical AVR with subtherapeutic INR: INR 2.0 upon arrival -Coumadin initially held for surgery, now restarted; bridged with IV heparin and now has been discontinued secondary to INR being 2.7 today -Pharmacy consulted to assist with Coumadin dosing -Monitor daily INR, currently 2.7, Patient seen by glass forming crew member, Dr. Grijalva for 2D echo results revealing aortic valve prosthesis velocities suggest a moderate to severe stenosis, however patient is currently asymptomatic. Patient can follow-up with Dr. Grijalva as outpatient for TAVR eval after discharge. Continue warfarin for anticoagulation. Hypertension/Hyperlipidemia: BP fairly well-controlled -Continue patient's HCTZ 50 mg, Toprol-XL 25 mg daily, Lasix 40 mg, Zetia 10mg daily -Monitor BP, adjust antihypertensives as needed Hypokalemia - repleted and resume patient's home potassium GERD: Chronic -Continue PPI DVT prophylaxis: On Coumadin, Discharge Planning Plan to discharge to [facility] today. Problem Qualifiers (1) Ankle fracture, left: Qualified Codes: S82.892A - Other fracture of left lower leg, initial encounter for closed fracture (2) Hypertension: Qualified Codes: I10 - Essential (primary) hypertension (3) Hyperlipidemia: Qualified Codes: E78.5 - Hyperlipidemia, unspecified (4) Fall: Qualified Codes: W19.XXXA - Unspecified fall, initial encounter (5) Trimalleolar fracture of left ankle: Qualified Codes: S82.852A - Displaced trimalleolar fracture of left lower leg, initial encounter for closed fracture (6) Aortic valvar stenosis: Qualified Codes: I35.0 - Nonrheumatic aortic (valve) stenosis Naomi Browne MD March 16, 2018 09:40
[2018-03-16] MEDS: DEXT 5%-NACL 0.45% 1000 ML INJ 1,000 ML IV SCH (10:00)
[2018-03-16 10:41] VITALS: O2SAT 94
[2018-03-16 12:00] VITALS: BP 173/76; PULSE 88; RESP 20; TEMP 97.2; O2SAT 94
== END 2018-03-16 13:11 | DRG 493 ==
LOC: NEPE 09:31 → NEDA 15:10 → N06B 16:56
PROVIDERS: ADMIT Family Medicine; ATTEND Family Medicine
PROC: 0SSGXZZ Reposition Left Ankle Joint, External Approach (ICD-10-PCS; 2018-03-05)
PROC: 0QSH04Z Reposition Left Tibia with Internal Fixation Device, Open Approach (ICD-10-PCS; 2018-03-06)
PROC: 0QSK04Z Reposition Left Fibula with Internal Fixation Device, Open Approach (ICD-10-PCS; principal; 2018-03-06 07:43)
DX: S82.852A Displaced trimalleolar fracture of left lower leg, initial encounter for closed fracture (principal); J44.1 Chronic obstructive pulmonary disease with (acute) exacerbation; T82.857A Stenosis of other cardiac prosthetic devices, implants and grafts, initial encounter; I71.2 Thoracic aortic aneurysm, without rupture; E87.1 Hypo-osmolality and hyponatremia; K76.0 Fatty (change of) liver, not elsewhere classified; I10 Essential (primary) hypertension; F41.9 Anxiety disorder, unspecified; G89.29 Other chronic pain; R51 Headache; W01.0XXA Fall on same level from slipping, tripping and stumbling without subsequent striking against object, initial encounter; K21.9 Gastro-esophageal reflux disease without esophagitis; I25.10 Atherosclerotic heart disease of native coronary artery without angina pectoris; M47.9 Spondylosis, unspecified; E78.5 Hyperlipidemia, unspecified; R49.0 Dysphonia; R09.02 Hypoxemia; G47.33 Obstructive sleep apnea (adult) (pediatric); E87.6 Hypokalemia; Y93.K1 Activity, walking an animal; Z95.2 Presence of prosthetic heart valve; Z79.82 Long term (current) use of aspirin; Z79.01 Long term (current) use of anticoagulants; Z87.891 Personal history of nicotine dependence
CPT/HCPCS: 27818; 36600; 51702; 70490; 71045; 71250; 71275; 73560; 73590; 73600; 73610; 73620; 76000; 76937; 80048; 80053; 82805; 82948; 83036; 83735; 83880; 84100; 84439; 84443; 85025; 85027; 85610; 85730; 93005; 93306; 94150; 94618; 94640; 94664; C1713; J0131; J0690; J1100; J1580; J1644; J2270; J2370; J2405; J2920; J3010; J7040; J7120; J7512; Q9967

== ENCOUNTER 2018-03-26 05:35 | Observation (INO) | payer MEDICARE, OTHER ==
[~2018-03-26] VITALS: Ht 182.9 cm; Wt 108.5 kg
[~2018-03-26 05:35] MED LIST changes: -ASPI-516 CHEW; +COUM6TAB PO; -LEVO500T8 PO; -PRIL20TA2; +PRIL20TA2 PO
[2018-03-26] MEDS ORDERED: CHLORHEXIDINE GLUCONATE 2 % 1 PACK (2 CLOTHS) TOPICAL PRN (06:15)
[2018-03-26] MEDS ORDERED: SODIUM CHLORID 0.9% 500 ML IV PRN (06:15)
[2018-03-26] MEDS ORDERED: POVIDONE IODINE 5% (ANTISEPSIS KIT) 4 APPLICATIONS EACH NARE PRN (06:15)
[2018-03-26] MEDS ORDERED: ceFAZolin 2 GM PREMIX 50 ML IV SCH (06:15)
[2018-03-26] MEDS ORDERED: METOPROLOL TARTRATE 25 MG TAB PO PRN (06:15)
[2018-03-26] MEDS ORDERED: LACTATED RINGER'S 1000 ML IV PRN (06:15)
[2018-03-26] MEDS ORDERED: VANCOMYCIN 1 GM/200 ML INJ 200 ML IV PRN (06:15)
[2018-03-26] MEDS ORDERED: CHLORHEXIDINE GLUCONATE 4% SOLN 120 ML BTL TOPICAL SCH (06:15)
[2018-03-26] MEDS ORDERED: GENTAMICIN SULFATE 80 MG/2 ML VIAL ONE (06:17)
[2018-03-26] MEDS ORDERED: VANCOMYCIN HCL 1000 MG VIAL ONE (06:18)
[2018-03-26 06:50] LABS: PROTHROMBIN TIME - PATIENT 11.5 SEC (9.8-11.6)
[2018-03-26 06:52] LABS: INTERNATIONAL NORMALIZED RATIO 1.1 RATIO
[2018-03-26] MEDS ORDERED: ACETAMINOPHEN 1000 MG/100 ML 100 ML IV ONE (07:32)
--- NOTE | 2018-03-26 10:24 | PD.OP ---
cc: Ankush Acosta MD Operative Report Date of Surgery: Mar 26, 2018 Preoperative Diagnosis: Displaced left ankle trimalleolar fracture Postoperative Diagnosis: Procedure: Removal of deep hardware, revision open reduction internal fixation left ankle trimalleolar fracture Anesthesia: General Surgeon: Ankush Acosta Plate Cleaner(s): Kali Chase PA-C The surgical procedure was assisted by my physician surgical first assistant. My P.A. presence was necessary throughout this case for the manipulation and positioning of the surgical extremity. My P.A. was assisting me throughout the duration of this procedure. The skill set of a physician surgical first assistant was medically necessary to complete this procedure. During the surgical case the certified surgical technician was working at the back table and the physician surgical first assistant was directly assisting me. Operation and Findings: Implants used: Synthes Plan of activity: Strict nonweightbearing left leg Details of procedure: Patient was seen and evaluated preoperatively and found to have a secondarily displaced trimalleolar ankle fracture. He previously underwent open reduction internal fixation by Dr. Rm. He had been using his foot to push his wheelchair around. Repeat x-rays revealed significant displacement of fractures. Informed consent was obtained after a detailed discussion of risk and benefits of surgery. The operative site was marked. Patient was brought to the OR, placed on the OR table, and given IV sedation and general endotracheal anesthesia. IV antibiotics were given preoperatively. A timeout procedure was performed. The left leg was prepped with alcohol followed by Hibiclens and draped in the usual sterile fashion. Attention was turned towards the removal of hardware from the fibula and tibia. A four-inch incision was made over the distal fibula. The subcutaneous tissue was dissected with Bovie. The hardware of the fibula was visualized. The screws were loosened. The screws and plate were now removed. An additional 3 cm incision was made over the medial malleolus. The mediolateral screws were identified. The screws were removed using a screwdriver. 2 small incisions were made over the anterior tibia. The anterior to posterior screws were localized under fluoroscopy. Using appropriate screwdriver the screws were removed. Next attention was turned back towards open reduction internal fixation of the fractures. The fibula fracture was visualized. The fracture site was cleaned with curets. The fracture was now reduced. The length of the fibula was restored. The fracture keyed into appropriate alignment. K-wires were used to hold provisional fixation. A Synthes plate was selected. The plate was provisionally held to bone with K-wires. 3.5 cortical screws were used to compress the plate to bone. Multiple screws were placed above and below the fracture. All screws were premeasured and predrilled for appropriate length. Next attention was turned towards the posterior malleolus. A large fracture tenaculum was placed behind the fibula. The posterior malleolus fragment was carefully manipulated. Fracture keyed in anatomic alignment. The fracture tenaculum was used to hold provisional fixation. 2 percutaneous incisions were made along the anterior tibia. Guide pins for the 4.0 cannulated screws were placed from anterior to posterior. Fluoroscopy confirmed appropriate guidepin placement. Cannulated drill was placed over the guidepins. 2 appropriate length screws were now placed. Good compression was obtained. Fracture tenaculum was removed. Next attention was turned towards the medial malleolus. The medial fracture was reduced. Fracture was now reduced and keyed into anatomic alignment percutaneously. K wires were used to hold provisional fixation. A guidepin for the 4.0 cannulated screws were placed in a retrograde fashion across the fracture. Fluoroscopy was used to confirm guidepin placement. Cannulated drill was placed over the guidepin. Appropriate length screws were now placed. Good compression was applied. Fluoroscopy confirmed well aligned fracture with well-placed hardware. Next, attention was turned to the syndesmosis. The syndesmosis was stressed. There was mild widening of the syndesmosis with external rotation of the ankle. The syndesmosis was held in reduced position. Two 3.5 cortical screws were placed to the fibular plate into the tibia. The syndesmosis was stabilized. Incisions were thoroughly irrigated. The subcutaneous tissue was closed with 3- 0 Vicryl and the skin was closed with 3-0 nylon. Sterile dressings were applied. A well molded well-padded splint was applied. The patient was transferred to Recovery in stable condition. Needle and sponge counts were correct Ankush Acosta MD Mar 26, 2018 10:24
[2018-03-26] MEDS ORDERED: HYDR-3288 PO (10:25)
[2018-03-26] MEDS ORDERED: MORPHINE SULFATE 4 MG/ML INJ IV PUSH PRN (10:30)
[2018-03-26] MEDS ORDERED: Post-op Orders (for Pharmacy) XX ONE (10:30)
[2018-03-26] MEDS ORDERED: ONDANSETRON ODT 4 MG TAB PO PRN (10:30)
[2018-03-26] MEDS ORDERED: DO NOT ADM ANY ANTICOAGULANT DRUGS PRN (10:51)
[2018-03-26] MEDS ORDERED: *morphine SULFATE 4 MG/ML PERIprocedure ONLY ONE (11:02)
[2018-03-26] MEDS ORDERED: *morphine SULFATE 8 MG/ML PERIprocedure ONLY ONE (11:13)
[2018-03-26 12:00] VITALS: BP 136/64; PULSE 73; RESP 18; TEMP 97; O2SAT 94
[2018-03-26] MEDS ORDERED: ONDANSETRON HCL 4 MG/2 ML VIAL IV PUSH ONE (12:00)
[2018-03-26] MEDS ORDERED: DEXAMETHASONE SOD PHOS 4 MG/ML VIAL IV ONE (12:00)
[2018-03-26] MEDS ORDERED: PROPOFOL 200 MG/20 ML AMP IV ONE (12:00)
[2018-03-26] MEDS ORDERED: LIDOCAINE HCL 1% PF 5 ML SYRINGE OTHER ONE (12:00)
--- NOTE | 2018-03-26 12:00 | RADRPT ---
EXAM DATE: 03/26/2018 11:55 AM EDT AGE/SEX: 77 years / Male INDICATIONS: Post-op hardware removal and revision ORIF left ankle. CLINICAL DATA: This is the patient's initial encounter. Patient reports that signs and symptoms have been present for 1 day and indicates a pain score of Nonresponsive. MEDICAL/SURGICAL HISTORY: Non-responsive. . ORIF left ankle. COMPARISON: [facility] [place] LEFT LIMITED ([facility]), 03/05/2018. . FINDINGS: 2 images obtained in the operating room during left ankle procedure documents placement of a lateral fibular sideplate with multiple interlocking screws, 2 syndesmotic screws, and 2 partially threaded c annulated screws traversing the distal tibia. There are also 2 oblique partially threaded cannulated screws traversing the medial malleolus. Ankle mortise is intact and there is improved anatomic alignm ent. CONCLUSION: Improved alignment following left ankle ORIF. Electronically signed by: Diego Li MD 03/26/2018 11:59 AM EDT
[2018-03-26 16:00] VITALS: BP 126/61; PULSE 73; RESP 18; TEMP 97.4; O2SAT 97
[2018-03-26] MEDS: WARFARIN SOD 6 MG TAB PO SCH (16:29)
[2018-03-26] MEDS: ceFAZolin 2 GM PREMIX 50 ML IV SCH (16:29)
[2018-03-26 20:00] VITALS: BP 137/72; PULSE 80; RESP 18; TEMP 98.7; O2SAT 93
[2018-03-26] MEDS: VANCOMYCIN INJ 1,000 MG in SODIUM CHLOR 0.9% 250 ML INJ 250 ML IV SCH (20:31)
[2018-03-27 00:01] VITALS: BP 125/60; PULSE 80; RESP 18; TEMP 97.6; O2SAT 93
[2018-03-27] MEDS: ceFAZolin 2 GM PREMIX 50 ML IV SCH ×2 (01:29→10:26)
[2018-03-27 04:00] VITALS: BP 121/70; PULSE 75; RESP 18; TEMP 97.8; O2SAT 94
--- NOTE | 2018-03-27 07:07 | PD.ORT.PN ---
Subjective Subjective Remarks POD 1 s/p ORIF left ankle doing well. reports no pain. states doing great Objective Vitals Vital Signs Date Time Temp Pulse Resp B/P (MAP) Pulse Ox O2 Delivery O2 Flow Rate FiO2 03/27/18 04:00 97.8 75 18 121/70 (87) 94 03/27/18 00:01 97.6 80 18 125/60 (81) 93 03/26/18 22:26 Room Air 03/26/18 20:00 98.7 80 18 137/72 (93) 93 03/26/18 16:00 97.4 73 18 126/61 (82) 97 03/26/18 12:00 97.0 73 18 136/64 (88) 94 03/26/18 11:30 98.4 74 14 157/75 (102) 93 Room Air 03/26/18 11:15 76 14 167/67 (100) 97 Room Air 03/26/18 11:00 82 14 155/63 (93) 95 Nasal Cannula 2 03/26/18 10:52 98.4 85 14 161/70 (100) 92 Nasal Cannula 3 I/O 03/26/18 03/26/18 03/26/18 03/27/18 03/27/18 03/27/18 07:00 15:00 23:00 07:00 15:00 23:00 Intake Total 600 ml 850 ml 410 ml Output Total 75 ml 275 ml Balance 525 ml 575 ml 410 ml Intake Oral 600 ml 360 ml IV Total 250 ml 50 ml Other 600 ml Output Urine Total 275 ml Estimated Blood Loss 75 ml # Voids 2 Objective Remarks LLE: +short leg splint. in good repair. nvi Assessment & Plan Assessment and Plan 1) Left ankle Fx s/p Revision ORIF - POD 1 -NWB -elevate -maintain splint at all times -do not think patient safe for DC to home. patient does not wish to return to [facility]. CM to discuss options -plan for Dc to SNF when arrangements made -possibly DC home if patient does well with therapy and shows that he is safe -f/u with Jim or [facility] ni 2 weeks Kali Chase/Professional Security Officer ANALI Mar 27, 2018 07:07
[2018-03-27 08:00] VITALS: BP 122/62; PULSE 58; RESP 19; TEMP 97.5; O2SAT 95
[2018-03-27] MEDS: EZETIMIBE 10 MG TAB PO SCH (10:25)
[2018-03-27] MEDS: PANTOPRAZOLE SOD 20 MG DELAYED RELEASE TAB PO SCH (10:25)
[2018-03-27] MEDS: POTASSIUM CHLORIDE 10 MEQ CONTROLLED RELEASE TAB PO SCH (10:25)
[2018-03-27] MEDS: FUROSEMIDE 40 MG TAB PO SCH (10:25)
[2018-03-27] MEDS: VANCOMYCIN INJ 1,000 MG in SODIUM CHLOR 0.9% 250 ML INJ 250 ML IV SCH (10:26)
[2018-03-27] MEDS: HYDROCHLOROTHIAZIDE 50 MG TAB PO SCH (10:34)
[2018-03-27] MEDS: METOPROLOL SUCCINATE 25 MG EXTENDED RELEASE TAB PO SCH (10:34)
[2018-03-27 11:23] VITALS: BP 119/62; PULSE 82; RESP 16; TEMP 98.2; O2SAT 95
[2018-03-27 16:00] VITALS: BP 117/64; PULSE 82; RESP 19; TEMP 97.6; O2SAT 96
[2018-03-27] MEDS: WARFARIN SOD 6 MG TAB PO SCH (17:37)
[2018-03-27 20:25] VITALS: BP 108/59; PULSE 97; RESP 18; TEMP 98; O2SAT 92
[2018-03-27] MEDS: ACETAMINOPHEN/HYDROcodone 325 MG/7.5 MG TAB PO PRN (22:59)
[2018-03-28] VITALS (7 sets, daily range): BP systolic 95–132; BP diastolic 47–74; PULSE 74–91; RESP 16–18; TEMP 97.7–98.7; O2SAT 92–94
--- NOTE | 2018-03-28 06:38 | PD.ORT.PN ---
Subjective Subjective Remarks POD 2 s/p ORIF left ankle doing well. reports no pain. states doing great. reports was out of bed with walker and assistance yesterday Objective Vitals Vital Signs Date Time Temp Pulse Resp B/P (MAP) Pulse Ox O2 Delivery O2 Flow Rate FiO2 03/28/18 04:25 98.2 74 17 102/51 (68) 92 03/28/18 00:30 98.3 79 18 98/47 (64) 92 03/27/18 20:25 98.0 97 18 108/59 (75) 92 03/27/18 16:00 97.6 82 19 117/64 (81) 96 03/27/18 11:23 98.2 82 16 119/62 (81) 95 03/27/18 08:00 97.5 58 19 122/62 (82) 95 I/O 03/27/18 03/27/18 03/27/18 03/28/18 03/28/18 03/28/18 07:00 15:00 23:00 07:00 15:00 23:00 Intake Total 410 ml 120 ml 1000 ml Output Total 1200 ml Balance 410 ml 120 ml -200 ml Intake Oral 360 ml 120 ml 1000 ml IV Total 50 ml Output Urine Total 1200 ml # Voids 2 # Bowel Movements 1 1 Objective Remarks LLE: +short leg splint. in good repair. nvi Assessment & Plan Assessment and Plan 1) Left ankle Fx s/p Revision ORIF - POD 2 -NWB -elevate -maintain splint at all times -patient adamant that does not want to go back to [facility]. need PT to do an assessment today of patients safety to determine if safe to go home with [facility] -will decide rehab vs home pending that assessment -f/u with Jim or [facility] ni 2 weeks Kali Chase/Bead Forming Machine Set Up Operator ANALI Mar 28, 2018 06:38
[2018-03-28] MEDS: FUROSEMIDE 40 MG TAB PO SCH (09:30)
[2018-03-28] MEDS: POTASSIUM CHLORIDE 10 MEQ CONTROLLED RELEASE TAB PO SCH (09:30)
[2018-03-28] MEDS: PANTOPRAZOLE SOD 20 MG DELAYED RELEASE TAB PO SCH (09:30)
[2018-03-28] MEDS: HYDROCHLOROTHIAZIDE 50 MG TAB PO SCH (09:30)
[2018-03-28] MEDS: EZETIMIBE 10 MG TAB PO SCH (09:30)
[2018-03-28] MEDS: METOPROLOL SUCCINATE 25 MG EXTENDED RELEASE TAB PO SCH (09:31)
[2018-03-28] MEDS: ACETAMINOPHEN/HYDROcodone 325 MG/7.5 MG TAB PO PRN ×2 (09:33→17:08)
[2018-03-28] MEDS: WARFARIN SOD 6 MG TAB PO SCH (17:08)
--- NOTE | 2018-03-29 06:47 | PD.ORT.PN ---
Subjective Subjective Remarks POD 3 s/p ORIF left ankle doing well. reports no pain. states doing great. reports was out of bed with walker and assistance yesterday Objective Vitals Vital Signs Date Time Temp Pulse Resp B/P (MAP) Pulse Ox O2 Delivery O2 Flow Rate FiO2 03/28/18 23:40 98.7 80 18 124/63 (83) 92 03/28/18 20:10 98.1 85 18 95/52 (66) 92 03/28/18 16:00 98.0 79 16 132/64 (86) 92 03/28/18 12:00 98.0 91 16 118/74 (89) 94 03/28/18 08:00 97.7 74 17 126/61 (82) 92 I/O 03/28/18 03/28/18 03/28/18 03/29/18 03/29/18 03/29/18 07:00 15:00 23:00 07:00 15:00 23:00 Intake Total 480 ml 720 ml Output Total 600 ml 450 ml Balance 480 ml -600 ml 270 ml Intake Oral 480 ml 720 ml Output Urine Total 600 ml 450 ml # Voids 3 # Bowel Movements 0 0 Objective Remarks LLE: +short leg splint. in good repair. nvi Assessment & Plan Assessment and Plan 1) Left ankle Fx s/p Revision ORIF - POD 3 -NWB -elevate -maintain splint at all times -Pt assessment is that patient can only ambulate 8ft with walker. not fit for DC home. patient agreeable to SNf placement. -DC to SNF today -f/u with Jim or [facility] ni 2 weeks Kali Chase/Lead Ios Developer ANALI Mar 29, 2018 06:46
[2018-03-29 08:00] VITALS: BP 140/68; PULSE 85; RESP 17; TEMP 97.6; O2SAT 93
[2018-03-29] MEDS: PANTOPRAZOLE SOD 20 MG DELAYED RELEASE TAB PO SCH (08:03)
[2018-03-29] MEDS: POTASSIUM CHLORIDE 10 MEQ CONTROLLED RELEASE TAB PO SCH (08:03)
[2018-03-29] MEDS: EZETIMIBE 10 MG TAB PO SCH (08:04)
[2018-03-29] MEDS: FUROSEMIDE 40 MG TAB PO SCH (08:10)
[2018-03-29] MEDS: METOPROLOL SUCCINATE 25 MG EXTENDED RELEASE TAB PO SCH (08:10)
[2018-03-29] MEDS: HYDROCHLOROTHIAZIDE 50 MG TAB PO SCH (08:11)
[2018-03-29 12:00] VITALS: BP 120/65; PULSE 83; RESP 18; TEMP 98.3; O2SAT 93
[2018-03-29] MEDS: WARFARIN SOD 6 MG TAB PO SCH (16:32)
[2018-03-29 16:48] LABS: INTERNATIONAL NORMALIZED RATIO 1.7 RATIO; PROTHROMBIN TIME - PATIENT 17.2 SEC (9.8-11.6)
--- NOTE | 2018-03-30 07:24 | HHI.DS ---
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 in good repair. nvi Hospital Course Patient had previously undergone an ORIF of left trimalleolar ankle fracture by Dr. Rm. Patient was admitted to a rehab facility. Patient was found to be noncompliant in being partial weightbearing on his ankle. Subsequently, the hardware failed and the fracture displaced. Decision was made to proceed to the operating room for a revision ORIF of the left ankle. He tolerated the procedure well. On postop day 1 he had reported that he had no pain. He had not been out of bed yet. On physical therapy exam, he was found only to be able to ambulate approximately 8 feet with a walker. He was remaining nonweightbearing. He was found that he was unfit for discharge home and that rehab facility would be needed. Case management was involved in placing him in a rehab facility. He will remain nonweightbearing on the left ankle. He will maintain his splint at all times. He will be discharged to a rehab facility. He will follow-up in [address] Fernandez or his PA Pt Condition on Discharge: Fair Discharge Disposition: Discharge to SNF Discharge Instructions Diet Instructions: As Tolerated, No Restrictions Activities You Can Perform: Non Weight Bearing Follow up Referrals: Orthopedics - 2 Weeks @ [facility] with Ankush Fernandez MD New Medications: Hydrocodone-Acetaminophen ([employer]) 7.5-325 mg Tab 1 TAB PO Q4H PRN for PAIN, #50 TAB 0 Refills Continued Medications: Ezetimibe (Zetia) 10 Mg Tab 10 MG PO DAILY, #30 TAB 0 Refills Furosemide (Lasix) 40 Mg Tab 40 MG PO DAILY, #30 TAB 0 Refills Hydrochlorothiazide (Hydrochlorothiazide) 50 Mg Tab 50 MG PO DAILY, #60 TAB 0 Refills Metoprolol Succinate ER 24 HR (Toprol XL) 25 Mg Tab 25 MG PO DAILY, #30 TAB 0 Refills Omeprazole Magnesium (Prilosec) 20 Mg Tab 20 MG PO DAILY Potassium Chloride ER (Klor-Con 10) 10 Meq Tab 10 MEQ PO DAILY for Electrolyte Replacement, #30 TAB 0 Refills Warfarin (Coumadin) 6 Mg Tab 6 MG PO DAILY@1600 for Blood Clot Prevention for 30 Days, #30 TAB Kali Chase/[employer] PA Mar 30, 2018 07:24
== END 2018-03-29 17:35 ==
LOC: HSDC 05:35 → HSDI 10:26 → N06B 11:40
PROVIDERS: ADMIT Orthopaedic Surgery Orthopaedic Trauma; ATTEND Orthopaedic Surgery Orthopaedic Trauma
DX: S82.852A Displaced trimalleolar fracture of left lower leg, initial encounter for closed fracture (principal); I25.10 Atherosclerotic heart disease of native coronary artery without angina pectoris; Z87.891 Personal history of nicotine dependence; X58.XXXA Exposure to other specified factors, initial encounter
CPT/HCPCS: 01392; 20680; 27822; 73600; 76000; 85610; 87015; 87070; 87102; 87116; 87205; 87206; 94150; 96365; 96366; 96367; 96376; 97110; 97116; 97162; 97530; C1713; G0378; G8987; G8988; J0131; J0690; J1100; J1580; J2270; J2405; J3010; J3370; J7050; J7120